=== PATIENT | female | born 1965 | race Caucasian/White ===

== ENCOUNTER 2016-04-25 20:09 | Emergency (ER) | payer MEDICARE, MEDICAID ==
[~2016-04-25] VITALS: Ht 170.2 cm; Wt 86.4 kg
[~2016-04-25 20:09] MED LIST: BUPR-93 PO; DSS100 PO; OXYB5 PO; PARO10TA89 PO; QUET200T PO; SIMV5TAB6 PO
[2016-04-25 20:58] LABS: BASOPHILS # (AUTO) 0.02 K/uL (0.00-0.20); BASOPHILS % (AUTO) 0.3 % (0.0-2.0); EOSINOPHILS # (AUTO) 0.29 K/uL (0.00-0.70); EOSINOPHILS % (AUTO) 4.21 % (1.0-6.0); HEMATOCRIT 41.5 % (36-46); HEMOGLOBIN 14.2 g/dL (12.0-16.0); LYMPHOCYTES % (AUTO) 29.4 % (22.0-44.0); MEAN CORPUSCULAR HGB CONC 34.1 G/dL (31.0-37.0); MEAN CORPUSCULAR VOLUME 94 fL (80-100); MONOCYTES # (AUTO) 0.5 K/uL (0.1-1.0); NEUTROPHILS # (AUTO) 4.1 K/uL (1.8-7.7); NEUTROPHILS % (AUTO) 59.1 % (40.0-70.0); PLATELET COUNT (AUTO) 231 K/uL (150-450); RED BLOOD CELL COUNT(AUTO) 4.44 MIL/uL (4.00-5.20); RED CELL DISTRIBUTION WIDTH 12.5 % (11.5-14.5); WHITE BLOOD COUNT (AUTO) 6.9 K/uL (4.5-11.0)
[2016-04-25 21:04] LABS: ANION GAP 7 mmol/L (8-16); CALCIUM, TOTAL 9.1 mg/dL (8.8-10.5); CARBON DIOXIDE 32 mmol/L (22-29); CHLORIDE 103 mmol/L (98-107); CREATININE 1.09 mg/dL (0.60-1.30); GLOMERULAR FILTR. RATE CALC 53 mL/min (>60); POTASSIUM 3.9 mmol/L (3.5-5.1); SODIUM SERUM 142 mmol/L (136-145); UREA NITROGEN, BLOOD 13 mg/dL (7-18)
[2016-04-25 21:10] LABS: ALANINE AMINOTRANSFERASE 26 U/L (12-78); ALBUMIN 3.7 g/dL (3.4-5.0); ASPARTATE AMINOTRANSFERASE 15 U/L (15-37); BILIRUBIN,TOTAL 0.2 mg/dL (0.1-1.0); TOTAL PROTEIN, SERUM 7.2 g/dL (6.4-8.2)
[2016-04-25 23:19] LABS: APPEARANCE,URINE CLEAR (CLEAR); GLUCOSE, URINE (UA) NEGATIVE (NEGATIVE); KETONES,URINE NEGATIVE (NEGATIVE); LEUKOCYTE ESTERASE ,URINE NEGATIVE (NEGATIVE); OCCULT BLOOD,URINE NEGATIVE (NEGATIVE); PROTEIN,URINE NEGATIVE (NEGATIVE)
[2016-04-25 23:26] LABS: ADD UA MICROSCOPIC NO
[2016-04-25] MEDS ORDERED: SODIUM CHLORIDE 0.9% 1,000 ML IV ONE (23:45)
[2016-04-25] MEDS ORDERED: METOCLOPRAMIDE HCL 5 MG/ML 2 ML VIAL IVP ONE (23:45)
[2016-04-25] MEDS ORDERED: PANTOPRAZOLE SODIUM 40 MG/VIAL IVP ONE (23:45)
[2016-04-25] MEDS ORDERED: MORPHINE SULFATE 10 MG/ML SYRINGE IVP ONE (23:45)
[2016-04-26 01:14] VITALS: BP 133/84
[2016-05-14] MEDS ORDERED: SIMV-260 PO (14:21)
== END 2016-04-26 02:44 | disposition home or self-care (01) ==
LOC: EMS 20:12
DX: K21.9 Gastro-esophageal reflux disease without esophagitis (principal); F17.210 Nicotine dependence, cigarettes, uncomplicated; J44.9 Chronic obstructive pulmonary disease, unspecified; F31.9 Bipolar disorder, unspecified
CPT/HCPCS: 36415; 71010; 80053; 80307; 81003; 83690; 85025; 96361; 96374; 96375; 99285; C9113; G0480; J2270; J2765; J7030

== ENCOUNTER 2016-05-14 14:11 | Emergency (ER) | payer MEDICARE, MEDICAID ==
[~2016-05-14] VITALS: Ht 157.5 cm; Wt 99.0 kg
[2016-05-14] MEDS ORDERED: ASPI-556 PO (14:21)
[2016-05-14] MEDS ORDERED: SIMV20 PO (14:21)
[2016-05-14 14:42] LABS: BASOPHILS % (AUTO) 0.5 % (0.0-2.0); EOSINOPHILS % (AUTO) 3.1 % (1.0-6.0); HEMATOCRIT 40.8 % (36-46); HEMOGLOBIN 13.7 g/dL (12.0-16.0); LYMPHOCYTES # (AUTO) 2.1 K/uL (1.0-4.8); LYMPHOCYTES % (AUTO) 29.5 % (22.0-44.0); MEAN CORPUSCULAR HEMOGLOBIN 31.6 pg (26.0-34.0); MEAN CORPUSCULAR HGB CONC 33.5 G/dL (31.0-37.0); MEAN CORPUSCULAR VOLUME 94 fL (80-100); MONOCYTES # (AUTO) 0.4 K/uL (0.1-1.0); NEUTROPHILS # (AUTO) 4.5 K/uL (1.8-7.7); NEUTROPHILS % (AUTO) 61.9 % (40.0-70.0); PLATELET COUNT (AUTO) 249 K/uL (150-450); RED BLOOD CELL COUNT(AUTO) 4.33 MIL/uL (4.00-5.20); RED CELL DISTRIBUTION WIDTH 12.6 % (11.5-14.5); WHITE BLOOD COUNT (AUTO) 7.2 K/uL (4.5-11.0)
[2016-05-14] MEDS ORDERED: ASPIRIN 81 MG CHEWABLE TABLET PO ONE (14:45)
[2016-05-14 15:00] LABS: CALCIUM, TOTAL 8.6 mg/dL (8.8-10.5); CREATININE 1.03 mg/dL (0.60-1.30); POTASSIUM 4.1 mmol/L (3.5-5.1)
[2016-05-14 15:06] LABS: ALBUMIN 3.7 g/dL (3.4-5.0); BILIRUBIN,TOTAL 0.2 mg/dL (0.1-1.0); TOTAL PROTEIN, SERUM 7.1 g/dL (6.4-8.2)
[2016-05-14] MEDS ORDERED: LORazepam 1 MG TABLET PO ONE (15:15)
[2016-05-14] MEDS ORDERED: KETOROLAC TROMETHAMINE 30 MG/ML VIAL IVP ONE (15:15)
[2016-05-14 17:42] VITALS: BP 107/56
== END 2016-05-14 18:13 | disposition home or self-care (01) ==
LOC: EMS 14:15
DX: F41.9 Anxiety disorder, unspecified (principal); F25.9 Schizoaffective disorder, unspecified; F17.210 Nicotine dependence, cigarettes, uncomplicated; R07.89 Other chest pain; F31.9 Bipolar disorder, unspecified; J44.9 Chronic obstructive pulmonary disease, unspecified; F11.90 Opioid use, unspecified, uncomplicated; Z79.82 Long term (current) use of aspirin
CPT/HCPCS: 36415; 71020; 80053; 80307; 84484; 85025; 93005; 96374; 99285; 99406; J1885

== ENCOUNTER 2016-05-16 21:03 | Inpatient (IN) | payer MEDICARE, MEDICAID ==
[~2016-05-16] VITALS: Ht 157.5 cm; Wt 98.0 kg
[~2016-05-16 21:03] MED LIST changes: +ASPI-556 PO; +SIMV-260 PO
[2016-05-16 21:47] LABS: BASOPHILS # (AUTO) 0.01 K/uL (0.00-0.20); BASOPHILS % (AUTO) 0.2 % (0.0-2.0); EOSINOPHILS # (AUTO) 0.01 K/uL (0.00-0.70); EOSINOPHILS % (AUTO) 0.12 % (1.0-6.0); HEMATOCRIT 37.8 % (36-46); HEMOGLOBIN 12.9 g/dL (12.0-16.0); LYMPHOCYTES # (AUTO) 1.9 K/uL (1.0-4.8); LYMPHOCYTES % (AUTO) 20.6 % (22.0-44.0); MEAN CORPUSCULAR HEMOGLOBIN 32.1 pg (26.0-34.0); MEAN CORPUSCULAR HGB CONC 34.1 G/dL (31.0-37.0); MEAN CORPUSCULAR VOLUME 94 fL (80-100); MONOCYTES # (AUTO) 0.4 K/uL (0.1-1.0); MONOCYTES % (AUTO) 4.2 % (2.0-9.0); NEUTROPHILS # (AUTO) 6.8 K/uL (1.8-7.7); PLATELET COUNT (AUTO) 252 K/uL (150-450); RED BLOOD CELL COUNT(AUTO) 4.01 MIL/uL (4.00-5.20); RED CELL DISTRIBUTION WIDTH 12.8 % (11.5-14.5)
[2016-05-16 21:59] LABS: ANION GAP 11 mmol/L (8-16); CALCIUM, TOTAL 8.3 mg/dL (8.8-10.5); CARBON DIOXIDE 26 mmol/L (22-29); CHLORIDE 104 mmol/L (98-107); CREATININE 1.23 mg/dL (0.60-1.30); GLOMERULAR FILTR. RATE CALC 46 mL/min (>60); POTASSIUM 3.6 mmol/L (3.5-5.1); SODIUM SERUM 141 mmol/L (136-145); UREA NITROGEN, BLOOD 24 mg/dL (7-18)
[2016-05-16 22:04] LABS: ALANINE AMINOTRANSFERASE 28 U/L (12-78); ALBUMIN 3.6 g/dL (3.4-5.0); ASPARTATE AMINOTRANSFERASE 16 U/L (15-37); BILIRUBIN,TOTAL 0.2 mg/dL (0.1-1.0); TOTAL PROTEIN, SERUM 6.8 g/dL (6.4-8.2)
[2016-05-16] MEDS ORDERED: HALOPERIDOL 5 MG TABLET PO ONE (23:30)
[2016-05-16] MEDS ORDERED: LORazepam 2 MG TABLET PO ONE (23:30)
[2016-05-17] MEDS ORDERED: HALOPERIDOL 5 MG TABLET PO PRN (01:00)
[2016-05-17] MEDS ORDERED: LORazepam 2 MG TABLET PO PRN (01:00)
[2016-05-17] MEDS ORDERED: ZOLPIDEM TARTRATE 10 MG TABLET PO PRN (01:00)
[2016-05-17 02:26] VITALS: BP 150/97
[2016-05-17] MEDS ORDERED: -PHARMACY VACCINE NOTE- MISC ONE ×2 (04:00)
[2016-05-17] MEDS ORDERED: INFLUENZA VIRUS VACCINE QVS 2016-17 (3YR+)/PF 60 MCG/0.5 ML SYRINGE IM ONE (04:00)
[2016-05-17 08:00] VITALS: BP 115/71
[2016-05-17] MEDS ORDERED: MAG HYDROX/AL HYDROX/SIMETH ES 30 ML SUSPENSION UDCUP PO PRN (10:00)
[2016-05-17] MEDS ORDERED: LOPERAMIDE HCL 2 MG CAPSULE PO PRN (10:00)
[2016-05-17] MEDS ORDERED: GuaiFENesin/D-METHORPHAN [SUGAR-FREE] 200-20MG/10 ML SYRUP UDCUP PO PRN (10:00)
[2016-05-17] MEDS ORDERED: QUEtiapine FUMARATE 100 MG TABLET PO PRN (10:00)
[2016-05-17] MEDS ORDERED: MAGNESIUM HYDROXIDE SUSPENSION 30 ML UDCUP PO PRN (10:00)
[2016-05-17] MEDS ORDERED: PROMETHAZINE HCL 25 MG TABLET PO PRN (10:00)
[2016-05-17] MEDS ORDERED: HydrOXYzine PAMOATE 50 MG CAPSULE PO PRN (10:00)
[2016-05-17] MEDS ORDERED: ACETAMINOPHEN 325 MG TABLET PO PRN (10:00)
[2016-05-17] MEDS: DOCUSATE SODIUM 100 MG CAPSULE PO SCH (16:20)
[2016-05-17] MEDS: OXYBUTYNIN CHLORIDE 5 MG TABLET PO SCH (16:20)
[2016-05-17] MEDS: THIAMINE HCL 100 MG TABLET PO SCH (16:20)
[2016-05-17 16:29] VITALS: BP 117/71
[2016-05-17] MEDS ORDERED: SIMVASTATIN 5 MG TABLET PO SCH (21:00)
[2016-05-17] MEDS ORDERED: QUEtiapine FUMARATE 200 MG TABLET PO SCH (21:00)
[2016-05-18] MEDS: DOCUSATE SODIUM 100 MG CAPSULE PO SCH (08:30)
[2016-05-18] MEDS: THIAMINE HCL 100 MG TABLET PO SCH (08:31)
[2016-05-18] MEDS: OXYBUTYNIN CHLORIDE 5 MG TABLET PO SCH (08:31)
[2016-05-18] MEDS ORDERED: MULTIVITAMINS WITH MINERALS, THERAPEUTIC TABLET PO SCH (09:00)
[2016-05-18] MEDS ORDERED: PARoxetine HCL 10 MG TABLET PO SCH (09:00)
[2016-05-18] MEDS ORDERED: ASPIRIN 81 MG EC TABLET PO SCH (09:00)
[2016-05-18] MEDS ORDERED: BuPROPion HCL XL 150 MG ER TABLET PO SCH (09:00)
[2016-05-18] MEDS ORDERED: FOLIC ACID 1 MG TABLET PO SCH (09:00)
[2016-05-18 09:22] VITALS: BP 120/74
== END 2016-05-18 10:00 | disposition left against medical advice (07) | DRG 885 ==
LOC: EMS 21:09 → 3EX 05-17 01:27
PROVIDERS: ADMIT Psychiatry & Neurology Psychiatry; ATTEND Psychiatry & Neurology Psychiatry
PROC: 3E0234Z Introduction of Serum, Toxoid and Vaccine into Muscle, Percutaneous Approach (ICD-10-PCS; principal; 2016-05-17)
DX: F25.9 Schizoaffective disorder, unspecified (principal); E78.5 Hyperlipidemia, unspecified; J44.9 Chronic obstructive pulmonary disease, unspecified; R32 Unspecified urinary incontinence; F17.210 Nicotine dependence, cigarettes, uncomplicated; K59.00 Constipation, unspecified; K21.9 Gastro-esophageal reflux disease without esophagitis; B37.9 Candidiasis, unspecified; F12.90 Cannabis use, unspecified, uncomplicated; F15.90 Other stimulant use, unspecified, uncomplicated; Z59.0 Homelessness; Z91.14 Patient's other noncompliance with medication regimen; Z80.3 Family history of malignant neoplasm of breast; Z23 Encounter for immunization; Z79.82 Long term (current) use of aspirin; Z71.6 Tobacco abuse counseling
CPT/HCPCS: 83036; 99285; 99406; G0480

== ENCOUNTER 2016-05-28 12:13 | Emergency (ER) | payer MEDICARE, MEDICAID ==
[~2016-05-28] VITALS: Ht 160 cm; Wt 100.0 kg
[2016-05-28] MEDS ORDERED: MULT1CAP32 PO (12:54)
[2016-05-28] MEDS ORDERED: VITAD1000 PO (12:54)
[2016-05-28] MEDS ORDERED: TRAZ-147 PO (12:54)
[2016-05-28] MEDS ORDERED: FOLI0.4T30 PO (12:54)
[2016-05-28] MEDS ORDERED: PRAZ2 PO (12:54)
[2016-05-28] MEDS ORDERED: BUPR-93 PO (12:54)
[2016-05-28] MEDS ORDERED: FLUT1BLS PO (12:54)
[2016-05-28] MEDS ORDERED: ALBU8HFA4 IH (12:54)
[2016-05-28] MEDS ORDERED: PARO10TA89 PO (12:54)
[2016-05-28] MEDS ORDERED: OXYB5 PO (12:54)
[2016-05-28] MEDS ORDERED: QUET200T PO (12:54)
[2016-05-28 14:00] LABS: BASOPHILS # (AUTO) 0.02 K/uL (0.00-0.20); BASOPHILS % (AUTO) 0.3 % (0.0-2.0); EOSINOPHILS # (AUTO) 0.12 K/uL (0.00-0.70); EOSINOPHILS % (AUTO) 1.46 % (1.0-6.0); HEMATOCRIT 41.6 % (36-46); HEMOGLOBIN 13.9 g/dL (12.0-16.0); LYMPHOCYTES # (AUTO) 2.4 K/uL (1.0-4.8); LYMPHOCYTES % (AUTO) 29.3 % (22.0-44.0); MEAN CORPUSCULAR HEMOGLOBIN 31.7 pg (26.0-34.0); MEAN CORPUSCULAR HGB CONC 33.4 G/dL (31.0-37.0); MEAN CORPUSCULAR VOLUME 95 fL (80-100); MONOCYTES # (AUTO) 0.4 K/uL (0.1-1.0); MONOCYTES % (AUTO) 5.2 % (2.0-9.0); NEUTROPHILS # (AUTO) 5.2 K/uL (1.8-7.7); NEUTROPHILS % (AUTO) 63.8 % (40.0-70.0); PLATELET COUNT (AUTO) 250 K/uL (150-450); RED BLOOD CELL COUNT(AUTO) 4.39 MIL/uL (4.00-5.20); RED CELL DISTRIBUTION WIDTH 12.8 % (11.5-14.5); WHITE BLOOD COUNT (AUTO) 8.1 K/uL (4.5-11.0)
[2016-05-28 14:14] LABS: ANION GAP 8 mmol/L (8-16); CALCIUM, TOTAL 9.3 mg/dL (8.8-10.5); CARBON DIOXIDE 29 mmol/L (22-29); CHLORIDE 102 mmol/L (98-107); CREATININE 0.86 mg/dL (0.60-1.30); GLOMERULAR FILTR. RATE CALC > 60 mL/min (>60); POTASSIUM 4.2 mmol/L (3.5-5.1); SODIUM SERUM 139 mmol/L (136-145); UREA NITROGEN, BLOOD 15 mg/dL (7-18)
[2016-05-28 14:15] LABS: PROTHROMBIN TIME 10.6 SEC (9.4-11.6)
[2016-05-28 14:20] LABS: ALANINE AMINOTRANSFERASE 27 U/L (12-78); ALBUMIN 3.5 g/dL (3.4-5.0); ASPARTATE AMINOTRANSFERASE 17 U/L (15-37); BILIRUBIN,TOTAL 0.4 mg/dL (0.1-1.0); TOTAL PROTEIN, SERUM 7.1 g/dL (6.4-8.2)
[2016-05-28 14:26] LABS: B-TYPE NATRIURETIC PEPTIDE 6 pg/mL (0-100)
[2016-05-28] MEDS ORDERED: DIAZEPAM 5 MG/ML 2 ML SYRINGE IVP ONE (14:30)
[2016-05-28 15:36] LABS: APPEARANCE,URINE CLEAR (CLEAR); GLUCOSE, URINE (UA) NEGATIVE (NEGATIVE); KETONES,URINE NEGATIVE (NEGATIVE); LEUKOCYTE ESTERASE ,URINE NEGATIVE (NEGATIVE); OCCULT BLOOD,URINE NEGATIVE (NEGATIVE); PROTEIN,URINE NEGATIVE (NEGATIVE)
[2016-05-28 15:38] LABS: ADD UA MICROSCOPIC NO
[2016-05-28] MEDS ORDERED: ACETAMINOPHEN 500 MG TABLET PO ONE (16:00)
[2016-05-28 18:18] VITALS: BP 119/59
== END 2016-05-28 18:22 | disposition home or self-care (01) ==
LOC: EMS 12:18
DX: R07.2 Precordial pain (principal); F20.9 Schizophrenia, unspecified; F31.9 Bipolar disorder, unspecified; F41.9 Anxiety disorder, unspecified; J44.9 Chronic obstructive pulmonary disease, unspecified; F17.210 Nicotine dependence, cigarettes, uncomplicated; I20.9 Angina pectoris, unspecified
CPT/HCPCS: 36415; 71010; 80053; 80307; 81003; 83880; 84484; 85025; 85610; 93005; 96374; 99285; J1885

== ENCOUNTER 2016-07-08 06:41 | Day surgery (SDC) | payer MEDICARE, MEDICAID ==
[~2016-07-08] VITALS: Ht 157.5 cm; Wt 98.2 kg
[~2016-07-08 06:41] MED LIST changes: +ALBU8HFA4 IH; -ASPI-556 PO; -DSS100 PO; +FLUT1BLS PO; +FOLI0.4T30 PO; +MULT1CAP32 PO; +PRAZ2 PO; -SIMV-260 PO; -SIMV5TAB6 PO; +TRAZ-147 PO; +VITAD1000 PO
[2016-07-08] MEDS ORDERED: SODIUM CHLORIDE 0.9% 1,000 ML IV ONE ×2 (06:58→07:30)
[2016-07-08 07:31] LABS: CALCIUM, TOTAL 9.2 mg/dL (8.8-10.5); CREATININE 1.02 mg/dL (0.60-1.30); POTASSIUM 4.2 mmol/L (3.5-5.1)
[2016-07-08 07:34] LABS: PROTHROMBIN TIME 10.6 SEC (9.4-11.6)
[2016-07-08 07:36] LABS: BASOPHILS % (AUTO) 0.3 % (0.0-2.0); EOSINOPHILS % (AUTO) 3.2 % (1.0-6.0); HEMATOCRIT 39.2 % (36-46); LYMPHOCYTES # (AUTO) 2.1 K/uL (1.0-4.8); LYMPHOCYTES % (AUTO) 36.2 % (22.0-44.0); MEAN CORPUSCULAR HEMOGLOBIN 31.2 pg (26.0-34.0); MEAN CORPUSCULAR HGB CONC 33.2 G/dL (31.0-37.0); MEAN CORPUSCULAR VOLUME 94 fL (80-100); MONOCYTES # (AUTO) 0.4 K/uL (0.1-1.0); MONOCYTES % (AUTO) 7.5 % (2.0-9.0); NEUTROPHILS % (AUTO) 52.8 % (40.0-70.0); PLATELET COUNT (AUTO) 231 K/uL (150-450); RED BLOOD CELL COUNT(AUTO) 4.17 MIL/uL (4.00-5.20); RED CELL DISTRIBUTION WIDTH 13.1 % (11.5-14.5); WHITE BLOOD COUNT (AUTO) 5.7 K/uL (4.5-11.0)
[2016-07-08] MEDS ORDERED: FLUT1BLS PO (07:36)
[2016-07-08] MEDS ORDERED: HYDR-305 PO (07:36)
[2016-07-08] MEDS ORDERED: NICO21T TD (07:36)
[2016-07-08] MEDS ORDERED: CHOL200016 PO (07:42)
[2016-07-08] MEDS ORDERED: IBUP-2070 PO (07:42)
[2016-07-08] MEDS ORDERED: SIMV-260 PO (07:42)
[2016-07-08] MEDS ORDERED: ASPI-1093 PO (07:42)
[2016-07-08] MEDS ORDERED: DSS100 PO (07:42)
[2016-07-08] MEDS ORDERED: PERM120L5 TP (07:46)
[2016-07-08] MEDS ORDERED: BLAC540C4 PO (07:46)
[2016-07-08] MEDS ORDERED: SODIUM BICARBONATE 50 MEQ/50 ML VIAL ONE (08:52)
[2016-07-08] MEDS ORDERED: LIDOCAINE HCL/PF 1% 30 ML VIAL ONE (08:52)
[2016-07-08] MEDS ORDERED: IOHEXOL 300 MG/ML 150 ML VIAL ONE (08:52)
[2016-07-08] MEDS ORDERED: HEPARIN SODIUM 1000 UNITS/NS 500 ML ONE ×2 (08:52)
[2016-07-08 09:00] VITALS: BP 131/80
[2016-07-08] MEDS ORDERED: MIDAZOLAM HCL 2 MG/2 ML VIAL ONE (09:17)
[2016-07-08] MEDS ORDERED: FentaNYL CITRATE-PF 100 MCG/2 ML VIAL ONE (09:17)
[2016-07-08] MEDS ORDERED: HEPARIN SODIUM 2,000 UNITS in HEPARIN SODIUM 1000 UNITS/NS 1,000 ML IARTER ONE (09:28)
[2016-07-08] MEDS ORDERED: IOHEXOL 300 MG/ML 150 ML VIAL IARTER ONE (09:30)
[2016-07-08] MEDS ORDERED: MIDAZOLAM HCL 2 MG/2 ML VIAL IVP ONE (09:30)
[2016-07-08] MEDS ORDERED: LIDOCAINE 1% 30 ML/SOD BICARB 8.4% 4 ML SQ ONE (09:30)
[2016-07-08] MEDS ORDERED: FentaNYL CITRATE-PF 100 MCG/2 ML VIAL IVP ONE (09:30)
[2016-07-08 09:35] VITALS: BP 125/80
== END 2016-07-08 14:00 | disposition home or self-care (01) ==
LOC: CATHLAB 06:41
PROVIDERS: ATTEND Internal Medicine Cardiovascular Disease
DX: R94.39 Abnormal result of other cardiovascular function study (principal); J44.9 Chronic obstructive pulmonary disease, unspecified; F17.210 Nicotine dependence, cigarettes, uncomplicated; Z79.82 Long term (current) use of aspirin; Z98.51 Tubal ligation status
CPT/HCPCS: 36415; 80048; 85025; 85610; 85730; 93005; 93458; 99152; 99153; C1760; C1892; J1644; J2250; J3010; J3490 ×2; J7030; Q9967

== ENCOUNTER 2017-03-02 19:08 | Inpatient (IN) | payer MEDICARE, MEDICAID ==
[~2017-03-02] VITALS: Ht 157.5 cm; Wt 97.0 kg
[~2017-03-02 19:08] MED LIST changes: -ALBU8HFA4 IH; +ASPI-1182 PO; +BUPR-47 PO; -BUPR-93 PO; +FLUT1BLS IH; -FLUT1BLS PO; -FOLI0.4T30 PO; -MULT1CAP32 PO; +NALT50TA6 PO; +PARO-37 PO; -PARO10TA89 PO; +PRAZ1 PO; -PRAZ2 PO; -QUET200T PO; +QUET200T29 PO; +ROSU10 PO
[2017-03-02 19:59] LABS: BASOPHILS # (AUTO) 0.02 K/uL (0.00-0.20); BASOPHILS % (AUTO) 0.4 % (0.0-2.0); EOSINOPHILS # (AUTO) 0.19 K/uL (0.00-0.70); HEMOGLOBIN 13.3 g/dL (12.0-16.0); LYMPHOCYTES # (AUTO) 2.3 K/uL (1.0-4.8); MEAN CORPUSCULAR HGB CONC 34.1 G/dL (31.0-37.0); MEAN CORPUSCULAR VOLUME 97 fL (80-100); MONOCYTES # (AUTO) 0.4 K/uL (0.1-1.0); MONOCYTES % (AUTO) 5.7 % (2.0-9.0); NEUTROPHILS # (AUTO) 3.5 K/uL (1.8-7.7); NEUTROPHILS % (AUTO) 54.9 % (40.0-70.0); PLATELET COUNT (AUTO) 187 K/uL (150-450); RED BLOOD CELL COUNT(AUTO) 4.02 MIL/uL (4.00-5.20); RED CELL DISTRIBUTION WIDTH 12.9 % (11.5-14.5)
[2017-03-02 20:29] LABS: ANION GAP 7 mmol/L (8-16); CALCIUM, TOTAL 8.8 mg/dL (8.8-10.5); CARBON DIOXIDE 28 mmol/L (22-29); CHLORIDE 104 mmol/L (98-107); CREATININE 1.16 mg/dL (0.60-1.30); GLOMERULAR FILTR. RATE CALC 49 mL/min (>60); GLUCOSE,RANDOM 94 mg/dL (70-110); POTASSIUM 3.8 mmol/L (3.5-5.1); SODIUM SERUM 139 mmol/L (136-145); UREA NITROGEN, BLOOD 18 mg/dL (7-18)
[2017-03-02 20:35] LABS: ALANINE AMINOTRANSFERASE 26 U/L (12-78); ALBUMIN 3.5 g/dL (3.4-5.0); ALKALINE PHOSPHATASE 75 U/L (46-116); ASPARTATE AMINOTRANSFERASE 18 U/L (15-37); BILIRUBIN,TOTAL 0.1 mg/dL (0.1-1.0); TOTAL PROTEIN, SERUM 6.7 g/dL (6.4-8.2)
[2017-03-02 20:47] LABS: AMPHET/METH SCREEN,URINE NEGATIVE (NEGATIVE); BARBITURATE SCREEN, URINE NEGATIVE (NEGATIVE); BENZODIAZEPINES SCREEN,URINE NEGATIVE (NEGATIVE); CANNABINOID SCREEN,URINE NEGATIVE (NEGATIVE); COCAINE SCREEN,URINE NEGATIVE (NEGATIVE); METHADONE SCREEN, URINE NEGATIVE (NEGATIVE); OPIATE SCREEN,URINE POSITIVE (NEGATIVE)
[2017-03-02 20:48] LABS: PHENCYCLIDINE SCREEN,URINE NEGATIVE (NEGATIVE)
[2017-03-02] MEDS ORDERED: ZOLPIDEM TARTRATE 10 MG TABLET PO PRN (23:15)
[2017-03-02] MEDS ORDERED: HALOPERIDOL 5 MG TABLET PO PRN (23:15)
[2017-03-02] MEDS ORDERED: LORazepam 2 MG/ML VIAL IM ONE (23:30)
[2017-03-02] MEDS ORDERED: DiphenhydrAMINE HCL 50 MG/ML VIAL IM ONE (23:30)
[2017-03-02] MEDS ORDERED: HALOPERIDOL LACTATE 5 MG/ML VIAL IM ONE (23:30)
[2017-03-03 03:08] LABS: CHOL/HDL RATIO 5.1 (3.9-5.7); CHOLESTEROL 178 mg/dL (131-200); HDL CHOLESTEROL 35 mg/dL (40-60); LDL CHOL (CALC.) 84 mg/dL (0-130); TRIGLYCERIDES 296 mg/dL (15-150)
[2017-03-03] MEDS ORDERED: IBUPROFEN 600 MG TABLET PO PRN (10:00)
[2017-03-03] MEDS ORDERED: ACETAMINOPHEN 325 MG TABLET PO PRN (10:00)
[2017-03-03 11:19] VITALS: BP 103/65
[2017-03-03] MEDS: OXYBUTYNIN CHLORIDE 5 MG TABLET PO SCH ×2 (12:19→16:38)
[2017-03-03 16:22] VITALS: BP 110/69
[2017-03-03] MEDS: TraZODone HCL 100 MG TABLET PO SCH (20:29)
[2017-03-03] MEDS: ROSUVASTATIN CALCIUM 10 MG TABLET PO SCH (20:30)
[2017-03-03] MEDS: QUEtiapine FUMARATE 200 MG TABLET PO SCH (20:30)
[2017-03-04 06:57] VITALS: BP 110/72
[2017-03-04] MEDS: PARoxetine HCL 20 MG TABLET PO SCH (08:29)
[2017-03-04] MEDS: QUEtiapine FUMARATE 100 MG TABLET PO SCH (08:29)
[2017-03-04] MEDS: BuPROPion HCL XL 150 MG ER TABLET PO SCH (08:29)
[2017-03-04] MEDS: OXYBUTYNIN CHLORIDE 5 MG TABLET PO SCH ×3 (08:29→16:34)
[2017-03-04] MEDS: ASPIRIN 81 MG EC TABLET PO SCH (08:29)
[2017-03-04] MEDS: CHOLECALCIFEROL (VIT D3) 1,000 UNITS TABLET PO SCH (08:30)
[2017-03-04] MEDS: FLUTICASONE/VILANTEROL 200-25 MCG/INH INHALER [14] IH SCH (08:35)
[2017-03-04 08:46] VITALS: BP 104/66
[2017-03-04 13:30] VITALS: BP 114/70
[2017-03-04] MEDS: LORazepam 2 MG TABLET PO PRN (13:31)
[2017-03-04] MEDS: NICOTINE 14 MG/24 HOUR PATCH TD SCH (14:16)
[2017-03-04 16:06] VITALS: BP 109/70
[2017-03-04] MEDS: TraZODone HCL 100 MG TABLET PO SCH (20:37)
[2017-03-04] MEDS: QUEtiapine FUMARATE 200 MG TABLET PO SCH (20:37)
[2017-03-04] MEDS: ROSUVASTATIN CALCIUM 10 MG TABLET PO SCH (20:37)
[2017-03-05 06:48] VITALS: BP 105/65
[2017-03-05 08:22] VITALS: BP 107/60
[2017-03-05] MEDS: PARoxetine HCL 20 MG TABLET PO SCH (08:22)
[2017-03-05] MEDS: QUEtiapine FUMARATE 100 MG TABLET PO SCH (08:22)
[2017-03-05] MEDS: BuPROPion HCL XL 150 MG ER TABLET PO SCH (08:23)
[2017-03-05] MEDS: CHOLECALCIFEROL (VIT D3) 1,000 UNITS TABLET PO SCH (08:23)
[2017-03-05] MEDS: OXYBUTYNIN CHLORIDE 5 MG TABLET PO SCH ×3 (08:23→16:07)
[2017-03-05] MEDS: NICOTINE 14 MG/24 HOUR PATCH TD SCH (08:23)
[2017-03-05] MEDS: ASPIRIN 81 MG EC TABLET PO SCH (08:23)
[2017-03-05] MEDS: FLUTICASONE/VILANTEROL 200-25 MCG/INH INHALER [14] IH SCH (08:27)
[2017-03-05] MEDS: LORazepam 2 MG TABLET PO PRN ×2 (09:34→16:07)
[2017-03-05 16:00] VITALS: BP 109/75
[2017-03-05 17:27] VITALS: BP 110/80
[2017-03-05] MEDS: QUEtiapine FUMARATE 200 MG TABLET PO SCH (20:03)
[2017-03-05] MEDS: TraZODone HCL 100 MG TABLET PO SCH (20:03)
[2017-03-05] MEDS: ROSUVASTATIN CALCIUM 10 MG TABLET PO SCH (20:03)
[2017-03-06 01:50] VITALS: BP 111/61
[2017-03-06] MEDS ORDERED: ASPI-1182 PO (03:39)
[2017-03-06] MEDS ORDERED: OXYB5 PO (03:40)
[2017-03-06] MEDS ORDERED: ROSU10 PO (03:40)
[2017-03-06] MEDS ORDERED: VITAD1000 PO (03:40)
[2017-03-06] MEDS ORDERED: FLUT1BLS IH (03:41)
[2017-03-06] MEDS ORDERED: TRAZ-147 PO (03:42)
[2017-03-06] MEDS ORDERED: QUET200T PO (03:42)
[2017-03-06] MEDS ORDERED: QUET100T PO (03:43)
[2017-03-06] MEDS ORDERED: PARO20TA24 PO (03:43)
[2017-03-06] MEDS ORDERED: BUPR100 PO (03:44)
[2017-03-06] MEDS: NICOTINE 14 MG/24 HOUR PATCH TD SCH (08:04)
[2017-03-06] MEDS: FLUTICASONE/VILANTEROL 200-25 MCG/INH INHALER [14] IH SCH (08:04)
[2017-03-06] MEDS: PARoxetine HCL 20 MG TABLET PO SCH (08:04)
[2017-03-06] MEDS: QUEtiapine FUMARATE 100 MG TABLET PO SCH (08:04)
[2017-03-06] MEDS: CHOLECALCIFEROL (VIT D3) 1,000 UNITS TABLET PO SCH (08:04)
[2017-03-06] MEDS: BuPROPion HCL XL 150 MG ER TABLET PO SCH (08:04)
[2017-03-06] MEDS: OXYBUTYNIN CHLORIDE 5 MG TABLET PO SCH (08:04)
[2017-03-06] MEDS: ASPIRIN 81 MG EC TABLET PO SCH (08:04)
[2017-03-06 08:38] VITALS: BP 113/74
== END 2017-03-06 10:02 | disposition home or self-care (01) | DRG 885 ==
LOC: EMS 19:11 → B2X 03-03 07:10
PROVIDERS: ADMIT Psychiatry & Neurology Psychiatry; ATTEND Psychiatry & Neurology Psychiatry
DX: F20.0 Paranoid schizophrenia (principal); E55.9 Vitamin D deficiency, unspecified; E78.5 Hyperlipidemia, unspecified; F17.210 Nicotine dependence, cigarettes, uncomplicated; G89.4 Chronic pain syndrome; J44.9 Chronic obstructive pulmonary disease, unspecified; F15.90 Other stimulant use, unspecified, uncomplicated; R32 Unspecified urinary incontinence; Z80.3 Family history of malignant neoplasm of breast
CPT/HCPCS: 96372; 99285; G0480; J1200; J1630; J2060

== ENCOUNTER 2017-05-09 16:10 | Emergency (ER) | payer MEDICARE, MEDICAID ==
[~2017-05-09] VITALS: Ht 157.5 cm; Wt 97.7 kg
[~2017-05-09 16:10] MED LIST changes: -BUPR-47 PO; +BUPR100 PO; -NALT50TA6 PO; -PARO-37 PO; +PARO20TA24 PO; -PRAZ1 PO; +QUET100T PO; +QUET200T PO; -QUET200T29 PO
[2017-05-09] MEDS ORDERED: BUPR-93 PO (16:21)
[2017-05-09] MEDS ORDERED: NAPROXEN 250 MG TABLET PO ONE (18:00)
[2017-05-09 18:45] VITALS: BP 120/65
== END 2017-05-09 19:00 | disposition home or self-care (01) ==
LOC: EMS 18:18
DX: M25.572 Pain in left ankle and joints of left foot (principal); I20.9 Angina pectoris, unspecified; M19.90 Unspecified osteoarthritis, unspecified site; J44.9 Chronic obstructive pulmonary disease, unspecified; F17.210 Nicotine dependence, cigarettes, uncomplicated; Z79.82 Long term (current) use of aspirin
CPT/HCPCS: 99284; 99406

== ENCOUNTER 2017-05-24 23:26 | Emergency (ER) | payer MEDICARE, MEDICAID ==
[~2017-05-24] VITALS: Ht 157.5 cm; Wt 96.4 kg
[~2017-05-24 23:26] MED LIST changes: +BUPR-47 PO; +BUPR-93 PO; -BUPR100 PO; -FLUT1BLS IH; +NALT50TA PO; +PARO-37 PO; +PRAZ1 PO; +PRAZ1CAP2 PO; +QUET200T29 PO; -VITAD1000 PO
[2017-05-25 03:30] LABS: BASOPHILS % (AUTO) 0.4 % (0.0-2.0); EOSINOPHILS % (AUTO) 2.8 % (1.0-6.0); HEMATOCRIT 39.8 % (36-46); HEMOGLOBIN 13.7 g/dL (12.0-16.0); LYMPHOCYTES # (AUTO) 2.9 K/uL (1.0-4.8); LYMPHOCYTES % (AUTO) 39.9 % (22.0-44.0); MEAN CORPUSCULAR HEMOGLOBIN 32.7 pg (26.0-34.0); MEAN CORPUSCULAR HGB CONC 34.5 G/dL (31.0-37.0); MEAN CORPUSCULAR VOLUME 95 fL (80-100); MONOCYTES # (AUTO) 0.5 K/uL (0.1-1.0); MONOCYTES % (AUTO) 7.1 % (2.0-9.0); NEUTROPHILS # (AUTO) 3.6 K/uL (1.8-7.7); NEUTROPHILS % (AUTO) 49.8 % (40.0-70.0); PLATELET COUNT (AUTO) 225 K/uL (150-450); RED BLOOD CELL COUNT(AUTO) 4.19 MIL/uL (4.00-5.20); RED CELL DISTRIBUTION WIDTH 12.4 % (11.5-14.5)
[2017-05-25 03:38] LABS: ANION GAP 6 mmol/L (8-16); CALCIUM, TOTAL 8.6 mg/dL (8.8-10.5); CARBON DIOXIDE 30 mmol/L (22-29); CHLORIDE 106 mmol/L (98-107); CREATININE 0.91 mg/dL (0.60-1.30); GLOMERULAR FILTR. RATE CALC > 60 mL/min (>60); GLUCOSE,RANDOM 87 mg/dL (70-110); POTASSIUM 3.5 mmol/L (3.5-5.1); SODIUM SERUM 142 mmol/L (136-145); UREA NITROGEN, BLOOD 19 mg/dL (7-18)
[2017-05-25] MEDS ORDERED: SODIUM CHLORIDE 0.9% 1,000 ML IV ONE (04:15)
[2017-05-25] MEDS: SODIUM CHLORIDE 0.9% 1,000 ML IV ONE ×3 (04:55→06:07)
[2017-05-25] MEDS ORDERED: KETOROLAC TROMETHAMINE 60 MG/2 ML VIAL IM ONE (06:45)
[2017-05-25 06:55] VITALS: BP 109/67
== END 2017-05-25 07:10 | disposition home or self-care (01) ==
LOC: EMS 23:27
DX: I95.1 Orthostatic hypotension (principal); R44.0 Auditory hallucinations; R10.9 Unspecified abdominal pain; T44.6X5A Adverse effect of alpha-adrenoreceptor antagonists, initial encounter; J44.9 Chronic obstructive pulmonary disease, unspecified; I20.9 Angina pectoris, unspecified; F31.9 Bipolar disorder, unspecified; F20.9 Schizophrenia, unspecified; F17.210 Nicotine dependence, cigarettes, uncomplicated; Y92.89 Other specified places as the place of occurrence of the external cause; Z79.82 Long term (current) use of aspirin
CPT/HCPCS: 36415; 80048; 85025; 96360; 96361; 96372; 99284; J1885; J7030

== ENCOUNTER 2017-06-04 18:44 | Inpatient (IN) | payer MEDICARE, MEDICAID ==
[~2017-06-04] VITALS: Ht 157.5 cm; Wt 95.8 kg
[~2017-06-04 18:44] MED LIST changes: -BUPR-47 PO; -NALT50TA PO; -PARO-37 PO; -PRAZ1 PO; -PRAZ1CAP2 PO; -QUET200T29 PO
[2017-06-04 19:59] LABS: BASOPHILS % (AUTO) 0.3 % (0.0-2.0); EOSINOPHILS % (AUTO) 2.7 % (1.0-6.0); HEMOGLOBIN 14.5 g/dL (12.0-16.0); LYMPHOCYTES # (AUTO) 2.2 K/uL (1.0-4.8); MEAN CORPUSCULAR HEMOGLOBIN 32.6 pg (26.0-34.0); MEAN CORPUSCULAR HGB CONC 35.3 G/dL (31.0-37.0); MEAN CORPUSCULAR VOLUME 92 fL (80-100); MONOCYTES # (AUTO) 0.5 K/uL (0.1-1.0); NEUTROPHILS # (AUTO) 3.9 K/uL (1.8-7.7); PLATELET COUNT (AUTO) 252 K/uL (150-450); RED BLOOD CELL COUNT(AUTO) 4.44 MIL/uL (4.00-5.20); RED CELL DISTRIBUTION WIDTH 12.5 % (11.5-14.5)
[2017-06-04 20:05] LABS: ANION GAP 9 mmol/L (8-16); CARBON DIOXIDE 28 mmol/L (22-29); CHLORIDE 104 mmol/L (98-107); CREATININE 0.94 mg/dL (0.60-1.30); GLOMERULAR FILTR. RATE CALC > 60 mL/min (>60); GLUCOSE,RANDOM 109 mg/dL (70-110); POTASSIUM 3.8 mmol/L (3.5-5.1); SODIUM SERUM 141 mmol/L (136-145); UREA NITROGEN, BLOOD 18 mg/dL (7-18)
[2017-06-04 20:12] LABS: ALANINE AMINOTRANSFERASE 36 U/L (12-78); ALBUMIN 3.8 g/dL (3.4-5.0); ALKALINE PHOSPHATASE 82 U/L (46-116); ASPARTATE AMINOTRANSFERASE 21 U/L (15-37); BILIRUBIN,TOTAL 0.3 mg/dL (0.1-1.0); TOTAL PROTEIN, SERUM 7.3 g/dL (6.4-8.2)
[2017-06-04] MEDS ORDERED: HALOPERIDOL 5 MG TABLET PO ONE (20:15)
[2017-06-04] MEDS ORDERED: ZOLPIDEM TARTRATE 10 MG TABLET PO PRN (20:15)
[2017-06-04] MEDS ORDERED: DiphenhydrAMINE HCL 25 MG CAPSULE PO ONE (20:15)
[2017-06-04] MEDS ORDERED: LORazepam 2 MG TABLET PO ONE (20:15)
[2017-06-05 01:16] VITALS: BP 115/69
[2017-06-05] MEDS ORDERED: INFLUENZA VIRUS VACCINE QVS 2017-18 (3YR+)/PF 60 MCG/0.5 ML SYRINGE IM ONE (05:15)
[2017-06-05 08:26] VITALS: BP 108/73
[2017-06-05] MEDS: NICOTINE 7 MG/24 HOUR PATCH TD SCH (09:56)
[2017-06-05 16:13] VITALS: BP 110/78
[2017-06-05] MEDS: LORazepam 2 MG TABLET PO PRN (17:58)
[2017-06-05] MEDS: QUEtiapine FUMARATE 200 MG TABLET PO SCH (20:12)
[2017-06-05] MEDS: TraZODone HCL 100 MG TABLET PO SCH (20:12)
[2017-06-06] VITALS: BP 130/69
[2017-06-06 08:45] VITALS: BP 128/60
[2017-06-06] MEDS: PARoxetine HCL 20 MG TABLET PO SCH (10:16)
[2017-06-06] MEDS: BuPROPion HCL XL 150 MG ER TABLET PO SCH (10:16)
[2017-06-06] MEDS: QUEtiapine FUMARATE 100 MG TABLET PO SCH (10:16)
[2017-06-06] MEDS: NICOTINE 7 MG/24 HOUR PATCH TD SCH (10:17)
[2017-06-06 16:28] VITALS: BP 117/68
[2017-06-06] MEDS: IBUPROFEN 600 MG TABLET PO PRN (16:40)
[2017-06-06] MEDS: LORazepam 2 MG TABLET PO PRN (16:41)
[2017-06-06] MEDS: TraZODone HCL 100 MG TABLET PO SCH (21:15)
[2017-06-06] MEDS: QUEtiapine FUMARATE 200 MG TABLET PO SCH (21:15)
[2017-06-07 08:43] VITALS: BP 102/70
[2017-06-07] MEDS: QUEtiapine FUMARATE 100 MG TABLET PO SCH (08:47)
[2017-06-07] MEDS: BuPROPion HCL XL 150 MG ER TABLET PO SCH (08:47)
[2017-06-07] MEDS: PARoxetine HCL 20 MG TABLET PO SCH (08:47)
[2017-06-07] MEDS: NICOTINE 7 MG/24 HOUR PATCH TD SCH (08:48)
[2017-06-07 09:55] VITALS: BP 106/72
[2017-06-07] MEDS: IBUPROFEN 600 MG TABLET PO PRN ×2 (09:55→16:05)
[2017-06-07] MEDS: HALOPERIDOL 5 MG TABLET PO PRN (12:20)
[2017-06-07] MEDS: LORazepam 2 MG TABLET PO PRN (15:43)
[2017-06-07 16:05] VITALS: BP 114/75
[2017-06-07] MEDS: QUEtiapine FUMARATE 200 MG TABLET PO SCH (20:30)
[2017-06-07] MEDS: TraZODone HCL 100 MG TABLET PO SCH (20:30)
[2017-06-08 01:17] VITALS: BP 102/71
[2017-06-08 08:00] VITALS: BP 114/68
[2017-06-08] MEDS: PARoxetine HCL 20 MG TABLET PO SCH (08:32)
[2017-06-08] MEDS: QUEtiapine FUMARATE 100 MG TABLET PO SCH (08:32)
[2017-06-08] MEDS: BuPROPion HCL XL 150 MG ER TABLET PO SCH (08:32)
[2017-06-08] MEDS: NICOTINE 7 MG/24 HOUR PATCH TD SCH (08:33)
[2017-06-08] MEDS: LORazepam 2 MG TABLET PO PRN ×2 (08:34→16:20)
[2017-06-08] MEDS: IBUPROFEN 600 MG TABLET PO PRN (08:35)
[2017-06-08] MEDS ORDERED: ESTRADIOL 1 MG TABLET PO SCH (09:00)
[2017-06-08] MEDS ORDERED: MedroxyPROGESTERone ACET 5 MG TABLET PO SCH (09:00)
[2017-06-08] MEDS ORDERED: ASPIRIN 81 MG EC TABLET PO SCH (11:00)
[2017-06-08] MEDS ORDERED: ALBUTEROL SULFATE HFA 90 MCG/PUFF 8 GM INHALER IH PRN (11:00)
[2017-06-08] MEDS: OXYBUTYNIN CHLORIDE 5 MG TABLET PO SCH ×2 (12:17→16:20)
[2017-06-08] MEDS: HALOPERIDOL 5 MG TABLET PO PRN (16:20)
[2017-06-08] MEDS ORDERED: FAMO20 PO (16:26)
[2017-06-08] MEDS ORDERED: PROV5 PO (16:26)
[2017-06-08] MEDS ORDERED: DSS100 PO (16:26)
[2017-06-08] MEDS ORDERED: FLUT1BLS IH (16:27)
[2017-06-08] MEDS ORDERED: ROSUVASTATIN CALCIUM 10 MG TABLET PO SCH (21:00)
[2017-06-09] MEDS ORDERED: FLUTICASONE/VILANTEROL 200-25 MCG/INH INHALER [14] IH SCH (09:00)
[2017-06-09] MEDS ORDERED: DOCUSATE SODIUM 100 MG CAPSULE PO SCH (09:00)
[2017-06-09] MEDS ORDERED: FAMOTIDINE 20 MG TABLET PO SCH (09:00)
== END 2017-06-08 17:25 | disposition home or self-care (01) | DRG 885 ==
LOC: EEVIPCON 18:46 → EMS 18:46 → B2X 21:00
PROVIDERS: ATTEND Internal Medicine Geriatric Medicine
DX: F25.1 Schizoaffective disorder, depressive type (principal); F11.20 Opioid dependence, uncomplicated; E78.5 Hyperlipidemia, unspecified; F41.9 Anxiety disorder, unspecified; G47.00 Insomnia, unspecified; G89.29 Other chronic pain; K21.9 Gastro-esophageal reflux disease without esophagitis; I10 Essential (primary) hypertension; J44.9 Chronic obstructive pulmonary disease, unspecified; F17.210 Nicotine dependence, cigarettes, uncomplicated; M19.90 Unspecified osteoarthritis, unspecified site; R32 Unspecified urinary incontinence; Z79.899 Other long term (current) drug therapy; Z28.21 Immunization not carried out because of patient refusal
CPT/HCPCS: 87081; G0480

== ENCOUNTER 2017-06-10 08:39 | Inpatient (IN) | payer MEDICARE, MEDICAID ==
[~2017-06-10] VITALS: Ht 165.1 cm; Wt 94.8 kg
[~2017-06-10 08:39] MED LIST changes: +DSS100 PO; +FAMO20 PO; +FLUT1BLS IH; +PROV5 PO
[2017-06-10] MEDS ORDERED: HYDR-309 PO (09:14)
[2017-06-10] MEDS ORDERED: PROV5 PO (09:14)
[2017-06-10] MEDS ORDERED: ESTR-95 PO (09:14)
[2017-06-10 10:09] LABS: BASOPHILS % (AUTO) 0.3 % (0.0-2.0); HEMATOCRIT 39.7 % (36-46); LYMPHOCYTES % (AUTO) 31.3 % (22.0-44.0); MEAN CORPUSCULAR HEMOGLOBIN 32.8 pg (26.0-34.0); MEAN CORPUSCULAR HGB CONC 35.4 G/dL (31.0-37.0); MEAN CORPUSCULAR VOLUME 93 fL (80-100); MONOCYTES # (AUTO) 0.4 K/uL (0.1-1.0); MONOCYTES % (AUTO) 6.3 % (2.0-9.0); NEUTROPHILS # (AUTO) 3.7 K/uL (1.8-7.7); NEUTROPHILS % (AUTO) 59.1 % (40.0-70.0); PLATELET COUNT (AUTO) 264 K/uL (150-450); RED BLOOD CELL COUNT(AUTO) 4.28 MIL/uL (4.00-5.20); RED CELL DISTRIBUTION WIDTH 12.4 % (11.5-14.5)
[2017-06-10 10:15] LABS: AMPHET/METH SCREEN,URINE NEGATIVE (NEGATIVE); BARBITURATE SCREEN, URINE NEGATIVE (NEGATIVE); BENZODIAZEPINES SCREEN,URINE NEGATIVE (NEGATIVE); CANNABINOID SCREEN,URINE NEGATIVE (NEGATIVE); COCAINE SCREEN,URINE NEGATIVE (NEGATIVE); METHADONE SCREEN, URINE NEGATIVE (NEGATIVE); OPIATE SCREEN,URINE POSITIVE (NEGATIVE); PHENCYCLIDINE SCREEN,URINE NEGATIVE (NEGATIVE)
[2017-06-10 10:19] LABS: ANION GAP 10 mmol/L (8-16); CALCIUM, TOTAL 8.9 mg/dL (8.8-10.5); CARBON DIOXIDE 26 mmol/L (22-29); CHLORIDE 105 mmol/L (98-107); CREATININE 0.97 mg/dL (0.60-1.30); GLOMERULAR FILTR. RATE CALC 60 mL/min (>60); GLUCOSE,RANDOM 117 mg/dL (70-110); POTASSIUM 3.9 mmol/L (3.5-5.1); SODIUM SERUM 141 mmol/L (136-145); UREA NITROGEN, BLOOD 14 mg/dL (7-18)
[2017-06-10 10:28] LABS: ALANINE AMINOTRANSFERASE 33 U/L (12-78); ALBUMIN 3.8 g/dL (3.4-5.0); ALKALINE PHOSPHATASE 84 U/L (46-116); ASPARTATE AMINOTRANSFERASE 22 U/L (15-37); BILIRUBIN,TOTAL 0.3 mg/dL (0.1-1.0); TOTAL PROTEIN, SERUM 7.3 g/dL (6.4-8.2)
[2017-06-10] MEDS ORDERED: LORazepam 2 MG/ML VIAL IM ONE (11:00)
[2017-06-10] MEDS ORDERED: HALOPERIDOL LACTATE 5 MG/ML VIAL IM ONE (11:00)
[2017-06-10] MEDS ORDERED: ZOLPIDEM TARTRATE 10 MG TABLET PO PRN (12:00)
[2017-06-10] MEDS ORDERED: QUEtiapine FUMARATE 100 MG TABLET PO PRN (12:00)
[2017-06-10] MEDS ORDERED: GuaiFENesin/D-METHORPHAN [SUGAR-FREE] 200-20MG/10 ML SYRUP UDCUP PO PRN (14:00)
[2017-06-10] MEDS ORDERED: PROMETHAZINE HCL 25 MG TABLET PO PRN ×2 (14:00)
[2017-06-10] MEDS ORDERED: MAG HYDROX/AL HYDROX/SIMETH ES 30 ML SUSPENSION UDCUP PO PRN (14:00)
[2017-06-10] MEDS ORDERED: LOPERAMIDE HCL 2 MG CAPSULE PO PRN (14:00)
[2017-06-10] MEDS ORDERED: MAGNESIUM HYDROXIDE SUSPENSION 30 ML UDCUP PO PRN (14:00)
[2017-06-10 16:34] VITALS: BP 105/67
[2017-06-10] MEDS: OXYBUTYNIN CHLORIDE 5 MG TABLET PO SCH (17:17)
[2017-06-10] MEDS: THIAMINE HCL 100 MG TABLET PO SCH (17:17)
[2017-06-10] MEDS: ROSUVASTATIN CALCIUM 10 MG TABLET PO SCH (20:33)
[2017-06-10] MEDS: TraZODone HCL 100 MG TABLET PO SCH (20:33)
[2017-06-10] MEDS: QUEtiapine FUMARATE 200 MG TABLET PO SCH (20:33)
[2017-06-11 00:21] VITALS: BP 114/64
[2017-06-11] MEDS: NALTREXONE HCL 50 MG TABLET PO SCH (08:07)
[2017-06-11] MEDS: THIAMINE HCL 100 MG TABLET PO SCH ×2 (08:07→16:09)
[2017-06-11] MEDS: MULTIVITAMINS WITH MINERALS, THERAPEUTIC TABLET PO SCH (08:07)
[2017-06-11] MEDS: FOLIC ACID 1 MG TABLET PO SCH (08:07)
[2017-06-11] MEDS: PARoxetine HCL 20 MG TABLET PO SCH (08:07)
[2017-06-11] MEDS: OXYBUTYNIN CHLORIDE 5 MG TABLET PO SCH ×3 (08:07→16:09)
[2017-06-11] MEDS: ASPIRIN 81 MG EC TABLET PO SCH (08:08)
[2017-06-11] MEDS: BuPROPion HCL XL 150 MG ER TABLET PO SCH (08:08)
[2017-06-11] MEDS: FLUTICASONE/VILANTEROL 200-25 MCG/INH INHALER [14] IH SCH (08:09)
[2017-06-11] MEDS: DOCUSATE SODIUM 100 MG CAPSULE PO SCH (08:09)
[2017-06-11] MEDS: NICOTINE 21 MG/24 HOUR PATCH TD SCH (08:09)
[2017-06-11 08:34] VITALS: BP 109/60
[2017-06-11 16:09] VITALS: BP 119/84
[2017-06-11] MEDS: ESTRADIOL 1 MG TABLET PO SCH (16:09)
[2017-06-11] MEDS: LORazepam 2 MG TABLET PO PRN (16:09)
[2017-06-11] MEDS: ACETAMINOPHEN 325 MG TABLET PO PRN (16:09)
[2017-06-11 16:16] VITALS: BP 119/84
[2017-06-11] MEDS: QUEtiapine FUMARATE 200 MG TABLET PO SCH (20:19)
[2017-06-11] MEDS: ROSUVASTATIN CALCIUM 10 MG TABLET PO SCH (20:19)
[2017-06-11] MEDS: TraZODone HCL 100 MG TABLET PO SCH (20:19)
[2017-06-12 06:35] VITALS: BP 112/77
[2017-06-12] MEDS: DOCUSATE SODIUM 100 MG CAPSULE PO SCH (08:11)
[2017-06-12] MEDS: PARoxetine HCL 20 MG TABLET PO SCH (08:11)
[2017-06-12] MEDS: ESTRADIOL 1 MG TABLET PO SCH (08:11)
[2017-06-12] MEDS: THIAMINE HCL 100 MG TABLET PO SCH ×2 (08:12→16:28)
[2017-06-12] MEDS: BuPROPion HCL XL 150 MG ER TABLET PO SCH (08:12)
[2017-06-12] MEDS: FLUTICASONE/VILANTEROL 200-25 MCG/INH INHALER [14] IH SCH (08:12)
[2017-06-12] MEDS: NICOTINE 21 MG/24 HOUR PATCH TD SCH (08:12)
[2017-06-12] MEDS: OXYBUTYNIN CHLORIDE 5 MG TABLET PO SCH ×3 (08:12→16:28)
[2017-06-12] MEDS: FOLIC ACID 1 MG TABLET PO SCH (08:12)
[2017-06-12] MEDS: ASPIRIN 81 MG EC TABLET PO SCH (08:12)
[2017-06-12] MEDS: MULTIVITAMINS WITH MINERALS, THERAPEUTIC TABLET PO SCH (08:12)
[2017-06-12] MEDS: NALTREXONE HCL 50 MG TABLET PO SCH (08:12)
[2017-06-12 08:24] VITALS: BP 115/60
[2017-06-12] MEDS: ACETAMINOPHEN 325 MG TABLET PO PRN ×2 (08:24→14:16)
[2017-06-12] MEDS: LORazepam 2 MG TABLET PO PRN ×2 (08:24→14:16)
[2017-06-12 08:38] VITALS: BP 115/60
[2017-06-12 14:16] VITALS: BP 113/76
[2017-06-12 16:28] VITALS: BP 110/84
[2017-06-12] MEDS: QUEtiapine FUMARATE 200 MG TABLET PO SCH (20:48)
[2017-06-12] MEDS: TraZODone HCL 100 MG TABLET PO SCH (20:48)
[2017-06-12] MEDS: ROSUVASTATIN CALCIUM 10 MG TABLET PO SCH (20:48)
[2017-06-13 02:00] VITALS: BP 101/76
[2017-06-13 08:34] VITALS: BP 111/75
[2017-06-13] MEDS: PARoxetine HCL 20 MG TABLET PO SCH (09:08)
[2017-06-13] MEDS: DOCUSATE SODIUM 100 MG CAPSULE PO SCH (09:09)
[2017-06-13] MEDS: NALTREXONE HCL 50 MG TABLET PO SCH (09:09)
[2017-06-13] MEDS: FOLIC ACID 1 MG TABLET PO SCH (09:09)
[2017-06-13] MEDS: MULTIVITAMINS WITH MINERALS, THERAPEUTIC TABLET PO SCH (09:09)
[2017-06-13] MEDS: ASPIRIN 81 MG EC TABLET PO SCH (09:09)
[2017-06-13] MEDS: THIAMINE HCL 100 MG TABLET PO SCH ×2 (09:09→16:18)
[2017-06-13] MEDS: BuPROPion HCL XL 150 MG ER TABLET PO SCH (09:09)
[2017-06-13] MEDS: OXYBUTYNIN CHLORIDE 5 MG TABLET PO SCH ×3 (09:10→16:18)
[2017-06-13] MEDS: ESTRADIOL 1 MG TABLET PO SCH (09:10)
[2017-06-13] MEDS: FLUTICASONE/VILANTEROL 200-25 MCG/INH INHALER [14] IH SCH (09:11)
[2017-06-13] MEDS: NICOTINE 21 MG/24 HOUR PATCH TD SCH (09:12)
[2017-06-13] MEDS: LORazepam 2 MG TABLET PO PRN ×2 (11:58→16:18)
[2017-06-13] MEDS: HydrOXYzine PAMOATE 50 MG CAPSULE PO PRN (14:54)
[2017-06-13 16:10] VITALS: BP 120/76
[2017-06-13] MEDS: ROSUVASTATIN CALCIUM 10 MG TABLET PO SCH (20:32)
[2017-06-13] MEDS: QUEtiapine FUMARATE 200 MG TABLET PO SCH (20:32)
[2017-06-13] MEDS: TraZODone HCL 100 MG TABLET PO SCH (20:32)
[2017-06-14 03:40] VITALS: BP 103/68
[2017-06-14] MEDS: NALTREXONE HCL 50 MG TABLET PO SCH (08:07)
[2017-06-14] MEDS: DOCUSATE SODIUM 100 MG CAPSULE PO SCH (08:07)
[2017-06-14] MEDS: THIAMINE HCL 100 MG TABLET PO SCH ×2 (08:07→16:39)
[2017-06-14] MEDS: OXYBUTYNIN CHLORIDE 5 MG TABLET PO SCH ×3 (08:07→16:39)
[2017-06-14] MEDS: MULTIVITAMINS WITH MINERALS, THERAPEUTIC TABLET PO SCH (08:07)
[2017-06-14] MEDS: ASPIRIN 81 MG EC TABLET PO SCH (08:07)
[2017-06-14] MEDS: NICOTINE 21 MG/24 HOUR PATCH TD SCH (08:08)
[2017-06-14] MEDS: BuPROPion HCL XL 150 MG ER TABLET PO SCH (08:08)
[2017-06-14] MEDS: PARoxetine HCL 20 MG TABLET PO SCH (08:08)
[2017-06-14] MEDS: ESTRADIOL 1 MG TABLET PO SCH (08:08)
[2017-06-14] MEDS: FOLIC ACID 1 MG TABLET PO SCH (08:08)
[2017-06-14 08:19] VITALS: BP 104/66
[2017-06-14] MEDS: HydrOXYzine PAMOATE 50 MG CAPSULE PO PRN (08:19)
[2017-06-14] MEDS: FLUTICASONE/VILANTEROL 200-25 MCG/INH INHALER [14] IH SCH (08:19)
[2017-06-14] MEDS: ACETAMINOPHEN 325 MG TABLET PO PRN (08:19)
[2017-06-14] MEDS ORDERED: IBUPROFEN 600 MG TABLET PO PRN (10:45)
[2017-06-14 11:50] VITALS: BP 112/71
[2017-06-14] MEDS: LORazepam 2 MG TABLET PO PRN (11:52)
[2017-06-14] MEDS ORDERED: DiphenhydrAMINE HCL 50 MG/ML VIAL IM ONE (13:15)
[2017-06-14] MEDS ORDERED: HALOPERIDOL LACTATE 5 MG/ML VIAL IM ONE (13:15)
[2017-06-14 13:55] VITALS: BP 106/67
[2017-06-14 16:21] VITALS: BP 112/73
[2017-06-14] MEDS: TraZODone HCL 100 MG TABLET PO SCH (20:19)
[2017-06-14] MEDS: ROSUVASTATIN CALCIUM 10 MG TABLET PO SCH (20:19)
[2017-06-14] MEDS: QUEtiapine FUMARATE 200 MG TABLET PO SCH (20:19)
[2017-06-15 06:23] LABS: GLUCOMETER DEV NAME(LOC) BV2S; GLUCOSE,POINT OF CARE 144 MG/DL (70-110)
[2017-06-15 06:40] VITALS: BP_SYST 107; BP_SYST 108; BP_DIAS 62; BP_DIAS 70
[2017-06-15 08:00] VITALS: BP 113/70
[2017-06-15] MEDS: NALTREXONE HCL 50 MG TABLET PO SCH (08:29)
[2017-06-15] MEDS: BuPROPion HCL XL 150 MG ER TABLET PO SCH (08:29)
[2017-06-15] MEDS: OXYBUTYNIN CHLORIDE 5 MG TABLET PO SCH ×3 (08:29→16:06)
[2017-06-15] MEDS: FOLIC ACID 1 MG TABLET PO SCH (08:29)
[2017-06-15] MEDS: ASPIRIN 81 MG EC TABLET PO SCH (08:29)
[2017-06-15] MEDS: ESTRADIOL 1 MG TABLET PO SCH (08:30)
[2017-06-15] MEDS: THIAMINE HCL 100 MG TABLET PO SCH ×2 (08:30→16:06)
[2017-06-15] MEDS: FLUTICASONE/VILANTEROL 200-25 MCG/INH INHALER [14] IH SCH (08:30)
[2017-06-15] MEDS: DOCUSATE SODIUM 100 MG CAPSULE PO SCH (08:30)
[2017-06-15] MEDS: MULTIVITAMINS WITH MINERALS, THERAPEUTIC TABLET PO SCH (08:30)
[2017-06-15] MEDS: PARoxetine HCL 20 MG TABLET PO SCH (08:30)
[2017-06-15] MEDS: NICOTINE 21 MG/24 HOUR PATCH TD SCH (08:30)
[2017-06-15 10:10] VITALS: BP 116/72
[2017-06-15] MEDS: ACETAMINOPHEN 325 MG TABLET PO PRN ×2 (10:10→16:08)
[2017-06-15] MEDS: LORazepam 2 MG TABLET PO PRN ×2 (10:10→16:06)
[2017-06-15] MEDS: HydrOXYzine PAMOATE 50 MG CAPSULE PO PRN (12:48)
[2017-06-15] MEDS ORDERED: PARO-37 PO (13:28)
[2017-06-15] MEDS ORDERED: BUPR-47 PO (13:28)
[2017-06-15] MEDS ORDERED: NALT50TA PO (13:28)
[2017-06-15] MEDS ORDERED: QUET200T29 PO (13:28)
[2017-06-15] MEDS ORDERED: TRAZ-147 PO (13:28)
[2017-06-15 16:06] VITALS: BP 108/62
[2017-06-15 16:16] VITALS: BP 108/62
[2017-06-15] MEDS: ROSUVASTATIN CALCIUM 10 MG TABLET PO SCH (20:42)
[2017-06-15] MEDS: TraZODone HCL 100 MG TABLET PO SCH (20:42)
[2017-06-15] MEDS ORDERED: QUEtiapine FUMARATE 300 MG TABLET PO SCH (21:00)
[2017-06-16 00:56] VITALS: BP 116/71
[2017-06-16] MEDS: LORazepam 2 MG TABLET PO PRN (06:54)
[2017-06-16 08:20] VITALS: BP 98/59
[2017-06-16] MEDS: NALTREXONE HCL 50 MG TABLET PO SCH (08:44)
[2017-06-16] MEDS: ESTRADIOL 1 MG TABLET PO SCH (08:44)
[2017-06-16] MEDS: OXYBUTYNIN CHLORIDE 5 MG TABLET PO SCH ×2 (08:44→12:52)
[2017-06-16] MEDS: FOLIC ACID 1 MG TABLET PO SCH (08:44)
[2017-06-16] MEDS: BuPROPion HCL XL 150 MG ER TABLET PO SCH (08:44)
[2017-06-16] MEDS: PARoxetine HCL 20 MG TABLET PO SCH (08:44)
[2017-06-16] MEDS: MULTIVITAMINS WITH MINERALS, THERAPEUTIC TABLET PO SCH (08:44)
[2017-06-16] MEDS: THIAMINE HCL 100 MG TABLET PO SCH (08:44)
[2017-06-16] MEDS: DOCUSATE SODIUM 100 MG CAPSULE PO SCH (08:44)
[2017-06-16] MEDS: ASPIRIN 81 MG EC TABLET PO SCH (08:44)
[2017-06-16] MEDS: FLUTICASONE/VILANTEROL 200-25 MCG/INH INHALER [14] IH SCH (08:46)
[2017-06-16] MEDS: NICOTINE 21 MG/24 HOUR PATCH TD SCH (08:46)
== END 2017-06-16 13:25 | disposition home or self-care (01) | DRG 885 ==
LOC: EMS 08:41 → B2X 12:38
PROVIDERS: ADMIT Psychiatry & Neurology Psychiatry; ATTEND Psychiatry & Neurology Psychiatry
DX: F25.9 Schizoaffective disorder, unspecified (principal); B19.20 Unspecified viral hepatitis C without hepatic coma; E11.9 Type 2 diabetes mellitus without complications; D64.9 Anemia, unspecified; E66.9 Obesity, unspecified; E78.5 Hyperlipidemia, unspecified; F17.210 Nicotine dependence, cigarettes, uncomplicated; F31.9 Bipolar disorder, unspecified; G89.29 Other chronic pain; I10 Essential (primary) hypertension; I25.10 Atherosclerotic heart disease of native coronary artery without angina pectoris; J44.9 Chronic obstructive pulmonary disease, unspecified; K59.00 Constipation, unspecified; R32 Unspecified urinary incontinence; F15.10 Other stimulant abuse, uncomplicated; M19.90 Unspecified osteoarthritis, unspecified site; Z79.899 Other long term (current) drug therapy; Z79.82 Long term (current) use of aspirin
CPT/HCPCS: 82962; 87081; 96372; 99285; G0480; J1200; J1630; J2060

== ENCOUNTER 2017-06-18 19:10 | Emergency (ER) | payer MEDICARE, MEDICAID ==
[~2017-06-18] VITALS: Ht 157.5 cm; Wt 100.0 kg
[~2017-06-18 19:10] MED LIST changes: +BUPR-47 PO; -BUPR-93 PO; +ESTR-95 PO; -FAMO20 PO; +NALT50TA PO; +PARO-37 PO; -PARO20TA24 PO; -PROV5 PO; -QUET100T PO; -QUET200T PO; +QUET200T29 PO
[2017-06-18 19:11] VITALS: BP 122/62
[2017-06-18 19:40] LABS: BASOPHILS % (AUTO) 0.3 % (0.0-2.0); HEMATOCRIT 40.1 % (36-46); HEMOGLOBIN 14.2 g/dL (12.0-16.0); LYMPHOCYTES # (AUTO) 2.9 K/uL (1.0-4.8); LYMPHOCYTES % (AUTO) 36.2 % (22.0-44.0); MEAN CORPUSCULAR HEMOGLOBIN 32.8 pg (26.0-34.0); MEAN CORPUSCULAR HGB CONC 35.3 G/dL (31.0-37.0); MEAN CORPUSCULAR VOLUME 93 fL (80-100); MONOCYTES # (AUTO) 0.6 K/uL (0.1-1.0); NEUTROPHILS # (AUTO) 4.3 K/uL (1.8-7.7); NEUTROPHILS % (AUTO) 54.5 % (40.0-70.0); PLATELET COUNT (AUTO) 269 K/uL (150-450); RED BLOOD CELL COUNT(AUTO) 4.32 MIL/uL (4.00-5.20); RED CELL DISTRIBUTION WIDTH 12.5 % (11.5-14.5)
[2017-06-18 19:48] LABS: ANION GAP 9 mmol/L (8-16); CALCIUM, TOTAL 9.1 mg/dL (8.8-10.5); CARBON DIOXIDE 29 mmol/L (22-29); CHLORIDE 104 mmol/L (98-107); CREATININE 1.07 mg/dL (0.60-1.30); GLOMERULAR FILTR. RATE CALC 54 mL/min (>60); GLUCOSE,RANDOM 94 mg/dL (70-110); POTASSIUM 3.6 mmol/L (3.5-5.1); SODIUM SERUM 142 mmol/L (136-145); UREA NITROGEN, BLOOD 19 mg/dL (7-18)
[2017-06-18 19:54] LABS: ALANINE AMINOTRANSFERASE 34 U/L (12-78); ALKALINE PHOSPHATASE 81 U/L (46-116); ASPARTATE AMINOTRANSFERASE 18 U/L (15-37); BILIRUBIN,TOTAL 0.2 mg/dL (0.1-1.0); TOTAL PROTEIN, SERUM 7.5 g/dL (6.4-8.2)
== END 2017-06-18 20:26 | disposition home or self-care (01) ==
LOC: EMS 19:11
DX: F20.9 Schizophrenia, unspecified (principal); F32.9 Major depressive disorder, single episode, unspecified; J44.9 Chronic obstructive pulmonary disease, unspecified; Z79.82 Long term (current) use of aspirin; Z79.899 Other long term (current) drug therapy
CPT/HCPCS: 36415; 80053; 85025; 99284; G0480

== ENCOUNTER 2017-06-21 14:20 | Inpatient (IN) | payer MEDICARE, MEDICAID ==
[~2017-06-21] VITALS: Ht 157.5 cm; Wt 97.5 kg
[2017-06-21] MEDS ORDERED: LOPERAMIDE HCL 2 MG CAPSULE PO PRN (17:15)
[2017-06-21] MEDS ORDERED: PROMETHAZINE HCL 25 MG TABLET PO PRN (17:15)
[2017-06-21] MEDS ORDERED: ZOLPIDEM TARTRATE 10 MG TABLET PO PRN (17:15)
[2017-06-21] MEDS ORDERED: MAGNESIUM HYDROXIDE SUSPENSION 30 ML UDCUP PO PRN (17:15)
[2017-06-21] MEDS ORDERED: MAG HYDROX/AL HYDROX/SIMETH ES 30 ML SUSPENSION UDCUP PO PRN (17:15)
[2017-06-21] MEDS ORDERED: HydrOXYzine PAMOATE 50 MG CAPSULE PO PRN (17:15)
[2017-06-21] MEDS ORDERED: GuaiFENesin/D-METHORPHAN [SUGAR-FREE] 200-20MG/10 ML SYRUP UDCUP PO PRN (17:15)
[2017-06-21 18:18] VITALS: BP 129/59
[2017-06-21] MEDS: THIAMINE HCL 100 MG TABLET PO SCH (18:24)
[2017-06-21] MEDS: TraZODone HCL 100 MG TABLET PO SCH (20:34)
[2017-06-21] MEDS: ROSUVASTATIN CALCIUM 10 MG TABLET PO SCH (20:34)
[2017-06-21] MEDS: QUEtiapine FUMARATE 300 MG TABLET PO SCH (20:38)
[2017-06-22 08:00] VITALS: BP 112/72
[2017-06-22] MEDS: ESTRADIOL 1 MG TABLET PO SCH (09:22)
[2017-06-22] MEDS: DOCUSATE SODIUM 100 MG CAPSULE PO SCH (09:23)
[2017-06-22] MEDS: FOLIC ACID 1 MG TABLET PO SCH (09:23)
[2017-06-22] MEDS: AmLODIPine BESYLATE 2.5 MG TABLET PO SCH (09:23)
[2017-06-22] MEDS: ASPIRIN 81 MG EC TABLET PO SCH (09:23)
[2017-06-22] MEDS: NALTREXONE HCL 50 MG TABLET PO SCH (09:24)
[2017-06-22] MEDS: PARoxetine HCL 20 MG TABLET PO SCH (09:24)
[2017-06-22] MEDS: BuPROPion HCL XL 150 MG ER TABLET PO SCH (09:24)
[2017-06-22] MEDS: MULTIVITAMINS WITH MINERALS, THERAPEUTIC TABLET PO SCH (09:24)
[2017-06-22] MEDS: THIAMINE HCL 100 MG TABLET PO SCH ×2 (09:29→17:27)
[2017-06-22] MEDS: NICOTINE 21 MG/24 HOUR PATCH TD SCH (09:29)
[2017-06-22] MEDS: FLUTICASONE/VILANTEROL 100-25 MCG/INH INHALER [14] IH SCH (10:20)
[2017-06-22] MEDS ORDERED: LORazepam 2 MG/ML VIAL IM ONE (12:30)
[2017-06-22] MEDS ORDERED: DiphenhydrAMINE HCL 50 MG/ML VIAL IM ONE (12:30)
[2017-06-22] MEDS ORDERED: HALOPERIDOL LACTATE 5 MG/ML VIAL IM ONE (12:30)
[2017-06-22] MEDS: OXYBUTYNIN CHLORIDE 5 MG TABLET PO SCH (17:35)
[2017-06-22 18:06] VITALS: BP 98/57
[2017-06-22] MEDS: QUEtiapine FUMARATE 300 MG TABLET PO SCH (20:53)
[2017-06-22] MEDS: TraZODone HCL 100 MG TABLET PO SCH (20:53)
[2017-06-22] MEDS: ROSUVASTATIN CALCIUM 10 MG TABLET PO SCH (20:53)
[2017-06-23 08:00] VITALS: BP 131/81
[2017-06-23] MEDS: MULTIVITAMINS WITH MINERALS, THERAPEUTIC TABLET PO SCH (08:24)
[2017-06-23] MEDS: BuPROPion HCL XL 150 MG ER TABLET PO SCH (08:25)
[2017-06-23] MEDS: OXYBUTYNIN CHLORIDE 5 MG TABLET PO SCH ×2 (08:25→16:31)
[2017-06-23] MEDS: DOCUSATE SODIUM 100 MG CAPSULE PO SCH (08:25)
[2017-06-23] MEDS: ASPIRIN 81 MG EC TABLET PO SCH (08:25)
[2017-06-23] MEDS: FLUTICASONE/VILANTEROL 100-25 MCG/INH INHALER [14] IH SCH (08:25)
[2017-06-23] MEDS: PARoxetine HCL 20 MG TABLET PO SCH (08:26)
[2017-06-23] MEDS: THIAMINE HCL 100 MG TABLET PO SCH ×2 (08:26→16:31)
[2017-06-23] MEDS: AmLODIPine BESYLATE 2.5 MG TABLET PO SCH (08:26)
[2017-06-23] MEDS: FOLIC ACID 1 MG TABLET PO SCH (08:26)
[2017-06-23] MEDS: ESTRADIOL 1 MG TABLET PO SCH (08:26)
[2017-06-23] MEDS: NALTREXONE HCL 50 MG TABLET PO SCH (08:26)
[2017-06-23] MEDS: NICOTINE 21 MG/24 HOUR PATCH TD SCH (08:31)
[2017-06-23] MEDS: LORazepam 2 MG TABLET PO PRN (13:06)
[2017-06-23] MEDS: ACETAMINOPHEN 325 MG TABLET PO PRN (13:06)
[2017-06-23 16:52] VITALS: BP 109/68
[2017-06-23] MEDS: TraZODone HCL 100 MG TABLET PO SCH (20:31)
[2017-06-23] MEDS: QUEtiapine FUMARATE 300 MG TABLET PO SCH (20:31)
[2017-06-23] MEDS: ROSUVASTATIN CALCIUM 10 MG TABLET PO SCH (20:32)
[2017-06-24 08:30] VITALS: BP 105/67
[2017-06-24] MEDS: AmLODIPine BESYLATE 2.5 MG TABLET PO SCH (08:42)
[2017-06-24] MEDS: PARoxetine HCL 20 MG TABLET PO SCH (08:43)
[2017-06-24] MEDS: DOCUSATE SODIUM 100 MG CAPSULE PO SCH (08:43)
[2017-06-24] MEDS: BuPROPion HCL XL 150 MG ER TABLET PO SCH (08:44)
[2017-06-24] MEDS: MULTIVITAMINS WITH MINERALS, THERAPEUTIC TABLET PO SCH (08:44)
[2017-06-24] MEDS: ESTRADIOL 1 MG TABLET PO SCH (08:44)
[2017-06-24] MEDS: FOLIC ACID 1 MG TABLET PO SCH (08:44)
[2017-06-24] MEDS: THIAMINE HCL 100 MG TABLET PO SCH ×2 (08:44→16:45)
[2017-06-24] MEDS: OXYBUTYNIN CHLORIDE 5 MG TABLET PO SCH ×3 (08:44→16:45)
[2017-06-24] MEDS: NALTREXONE HCL 50 MG TABLET PO SCH (08:44)
[2017-06-24] MEDS: ASPIRIN 81 MG EC TABLET PO SCH (08:44)
[2017-06-24] MEDS: NICOTINE 21 MG/24 HOUR PATCH TD SCH (08:53)
[2017-06-24] MEDS: FLUTICASONE/VILANTEROL 100-25 MCG/INH INHALER [14] IH SCH (09:00)
[2017-06-24] MEDS: ACETAMINOPHEN 325 MG TABLET PO PRN (10:13)
[2017-06-24] MEDS: LORazepam 2 MG TABLET PO PRN (10:13)
[2017-06-24] MEDS ORDERED: LORazepam 2 MG/ML VIAL IM ONE (15:30)
[2017-06-24] MEDS ORDERED: DiphenhydrAMINE HCL 50 MG/ML VIAL IM ONE (15:30)
[2017-06-24] MEDS ORDERED: HALOPERIDOL LACTATE 5 MG/ML VIAL IM ONE (15:30)
[2017-06-24] MEDS: MUPIROCIN CALCIUM 2% 15 GM CREAM TP SCH (16:48)
[2017-06-24 17:22] VITALS: BP 118/87
[2017-06-24] MEDS: ROSUVASTATIN CALCIUM 10 MG TABLET PO SCH (20:26)
[2017-06-24] MEDS: QUEtiapine FUMARATE 300 MG TABLET PO SCH (20:26)
[2017-06-24] MEDS: TraZODone HCL 100 MG TABLET PO SCH (20:27)
[2017-06-25 08:18] VITALS: BP 117/70
[2017-06-25] MEDS: FLUTICASONE/VILANTEROL 100-25 MCG/INH INHALER [14] IH SCH (08:56)
[2017-06-25] MEDS: DOCUSATE SODIUM 100 MG CAPSULE PO SCH (08:56)
[2017-06-25] MEDS: OXYBUTYNIN CHLORIDE 5 MG TABLET PO SCH ×3 (08:57→15:54)
[2017-06-25] MEDS: FOLIC ACID 1 MG TABLET PO SCH (08:57)
[2017-06-25] MEDS: ASPIRIN 81 MG EC TABLET PO SCH (08:57)
[2017-06-25] MEDS: AmLODIPine BESYLATE 2.5 MG TABLET PO SCH (08:57)
[2017-06-25] MEDS: ESTRADIOL 1 MG TABLET PO SCH (08:57)
[2017-06-25] MEDS: PARoxetine HCL 20 MG TABLET PO SCH (08:58)
[2017-06-25] MEDS: NALTREXONE HCL 50 MG TABLET PO SCH (08:58)
[2017-06-25] MEDS: THIAMINE HCL 100 MG TABLET PO SCH ×2 (08:58→15:54)
[2017-06-25] MEDS: BuPROPion HCL XL 150 MG ER TABLET PO SCH (08:58)
[2017-06-25] MEDS: MULTIVITAMINS WITH MINERALS, THERAPEUTIC TABLET PO SCH (08:58)
[2017-06-25] MEDS: NICOTINE 21 MG/24 HOUR PATCH TD SCH (09:04)
[2017-06-25] MEDS: MUPIROCIN CALCIUM 2% 15 GM CREAM TP SCH ×2 (09:04→15:54)
[2017-06-25] MEDS: ACETAMINOPHEN 325 MG TABLET PO PRN (14:31)
[2017-06-25] MEDS: LORazepam 2 MG TABLET PO PRN (14:32)
[2017-06-25 16:00] VITALS: BP 102/67
[2017-06-25] MEDS: TraZODone HCL 100 MG TABLET PO SCH (20:13)
[2017-06-25] MEDS: ROSUVASTATIN CALCIUM 10 MG TABLET PO SCH (20:13)
[2017-06-25] MEDS: QUEtiapine FUMARATE 300 MG TABLET PO SCH (20:13)
[2017-06-26] MEDS: AmLODIPine BESYLATE 2.5 MG TABLET PO SCH (08:22)
[2017-06-26] MEDS: MULTIVITAMINS WITH MINERALS, THERAPEUTIC TABLET PO SCH (08:24)
[2017-06-26] MEDS: ASPIRIN 81 MG EC TABLET PO SCH (08:24)
[2017-06-26] MEDS: FOLIC ACID 1 MG TABLET PO SCH (08:24)
[2017-06-26] MEDS: OXYBUTYNIN CHLORIDE 5 MG TABLET PO SCH ×3 (08:24→17:06)
[2017-06-26] MEDS: NALTREXONE HCL 50 MG TABLET PO SCH (08:24)
[2017-06-26] MEDS: NICOTINE 21 MG/24 HOUR PATCH TD SCH (08:24)
[2017-06-26] MEDS: DOCUSATE SODIUM 100 MG CAPSULE PO SCH (08:24)
[2017-06-26] MEDS: THIAMINE HCL 100 MG TABLET PO SCH ×2 (08:24→17:06)
[2017-06-26] MEDS: PARoxetine HCL 20 MG TABLET PO SCH (08:24)
[2017-06-26] MEDS: ESTRADIOL 1 MG TABLET PO SCH (08:25)
[2017-06-26] MEDS: MUPIROCIN CALCIUM 2% 15 GM CREAM TP SCH ×2 (08:25→17:06)
[2017-06-26] MEDS: FLUTICASONE/VILANTEROL 100-25 MCG/INH INHALER [14] IH SCH (08:25)
[2017-06-26] MEDS: BuPROPion HCL XL 150 MG ER TABLET PO SCH (08:25)
[2017-06-26 10:15] VITALS: BP 113/71
[2017-06-26 10:42] VITALS: BP 118/78
[2017-06-26] MEDS: ACETAMINOPHEN 325 MG TABLET PO PRN (10:42)
[2017-06-26] MEDS: LORazepam 2 MG TABLET PO PRN ×2 (10:45→15:56)
[2017-06-26] MEDS: QUEtiapine FUMARATE 100 MG TABLET PO PRN (14:56)
[2017-06-26 17:07] VITALS: BP 114/70
[2017-06-26] MEDS: ROSUVASTATIN CALCIUM 10 MG TABLET PO SCH (20:17)
[2017-06-26] MEDS: TraZODone HCL 100 MG TABLET PO SCH (20:17)
[2017-06-26] MEDS: QUEtiapine FUMARATE 300 MG TABLET PO SCH (20:18)
[2017-06-27 06:40] VITALS: BP 103/61
[2017-06-27 08:11] VITALS: BP 102/67
[2017-06-27] MEDS: FOLIC ACID 1 MG TABLET PO SCH (08:34)
[2017-06-27] MEDS: PARoxetine HCL 20 MG TABLET PO SCH (08:34)
[2017-06-27] MEDS: ASPIRIN 81 MG EC TABLET PO SCH (08:34)
[2017-06-27] MEDS: MULTIVITAMINS WITH MINERALS, THERAPEUTIC TABLET PO SCH (08:35)
[2017-06-27] MEDS: OXYBUTYNIN CHLORIDE 5 MG TABLET PO SCH ×2 (08:35→12:24)
[2017-06-27] MEDS: AmLODIPine BESYLATE 2.5 MG TABLET PO SCH (08:35)
[2017-06-27] MEDS: DOCUSATE SODIUM 100 MG CAPSULE PO SCH (08:35)
[2017-06-27] MEDS: BuPROPion HCL XL 150 MG ER TABLET PO SCH (08:35)
[2017-06-27] MEDS: THIAMINE HCL 100 MG TABLET PO SCH (08:35)
[2017-06-27] MEDS: NALTREXONE HCL 50 MG TABLET PO SCH (08:35)
[2017-06-27] MEDS: ESTRADIOL 1 MG TABLET PO SCH (08:35)
[2017-06-27] MEDS: NICOTINE 21 MG/24 HOUR PATCH TD SCH (08:36)
[2017-06-27] MEDS: MUPIROCIN CALCIUM 2% 15 GM CREAM TP SCH (08:41)
[2017-06-27] MEDS: FLUTICASONE/VILANTEROL 100-25 MCG/INH INHALER [14] IH SCH (09:00)
[2017-06-27] MEDS: LORazepam 2 MG TABLET PO PRN (11:30)
[2017-06-27] MEDS: QUEtiapine FUMARATE 100 MG TABLET PO PRN (12:25)
[2017-06-27] MEDS ORDERED: AMLO2.5T PO (13:18)
[2017-06-27] MEDS ORDERED: MUPI1OIN4 NS (13:20)
[2017-06-29] MEDS ORDERED: MUPIROCIN CALCIUM 2% 15 GM CREAM TP SCH (17:00)
== END 2017-06-27 15:15 | disposition home or self-care (01) | DRG 885 ==
LOC: 3EX 17:37
PROVIDERS: ADMIT Psychiatry & Neurology Psychiatry; ATTEND Psychiatry & Neurology Psychiatry
DX: F25.1 Schizoaffective disorder, depressive type (principal); E11.9 Type 2 diabetes mellitus without complications; R45.851 Suicidal ideations; E66.3 Overweight; E78.5 Hyperlipidemia, unspecified; B19.20 Unspecified viral hepatitis C without hepatic coma; E66.9 Obesity, unspecified; G89.29 Other chronic pain; F32.9 Major depressive disorder, single episode, unspecified; I10 Essential (primary) hypertension; I25.10 Atherosclerotic heart disease of native coronary artery without angina pectoris; F17.210 Nicotine dependence, cigarettes, uncomplicated; J44.9 Chronic obstructive pulmonary disease, unspecified; K59.00 Constipation, unspecified; R32 Unspecified urinary incontinence; Z22.322 Carrier or suspected carrier of Methicillin resistant Staphylococcus aureus; Z80.3 Family history of malignant neoplasm of breast; Z91.14 Patient's other noncompliance with medication regimen; Z68.39 Body mass index [BMI] 39.0-39.9, adult; Z72.89 Other problems related to lifestyle
CPT/HCPCS: 87081; 93005; J1200; J1630; J2060

== ENCOUNTER 2017-07-02 10:15 | Emergency (ER) | payer MEDICARE, MEDICAID ==
[~2017-07-02] VITALS: Ht 157.5 cm; Wt 100.0 kg
[~2017-07-02 10:15] MED LIST changes: +AMLO2.5T PO; +MUPI1OIN4 NS
[2017-07-02] MEDS ORDERED: QUET300T2 PO (11:37)
[2017-07-02] MEDS ORDERED: HydrOXYzine HCL 10 MG TABLET PO ONE (11:45)
[2017-07-02 11:50] VITALS: BP 104/56
== END 2017-07-02 12:16 | disposition home or self-care (01) ==
LOC: EMS 10:18
DX: F43.20 Adjustment disorder, unspecified (principal); F20.9 Schizophrenia, unspecified; F31.9 Bipolar disorder, unspecified; J44.9 Chronic obstructive pulmonary disease, unspecified; F17.210 Nicotine dependence, cigarettes, uncomplicated
CPT/HCPCS: 99284

== ENCOUNTER 2017-07-08 11:55 | Inpatient (IN) | payer MEDICARE, MEDICAID ==
[~2017-07-08] VITALS: Ht 157.5 cm; Wt 100.2 kg
[~2017-07-08 11:55] MED LIST changes: -MUPI1OIN4 NS; -QUET200T29 PO; +QUET300T2 PO
[2017-07-08 12:40] VITALS: BP_SYST 109; BP_SYST 136; BP_DIAS 69; BP_DIAS 78
[2017-07-08] MEDS ORDERED: ZOLPIDEM TARTRATE 10 MG TABLET PO PRN (14:00)
[2017-07-08] MEDS ORDERED: TRAZ-147 PO (14:17)
[2017-07-08] MEDS ORDERED: PARO20TA24 PO (14:17)
[2017-07-08] MEDS ORDERED: BUPR-47 PO (14:17)
[2017-07-08] MEDS ORDERED: NALT50TA6 PO (14:17)
[2017-07-08 14:40] VITALS: BP 107/78
[2017-07-08] MEDS ORDERED: PROMETHAZINE HCL 25 MG TABLET PO PRN (15:45)
[2017-07-08] MEDS ORDERED: MAG HYDROX/AL HYDROX/SIMETH ES 30 ML SUSPENSION UDCUP PO PRN (15:45)
[2017-07-08] MEDS ORDERED: LOPERAMIDE HCL 2 MG CAPSULE PO PRN (15:45)
[2017-07-08] MEDS ORDERED: MAGNESIUM HYDROXIDE SUSPENSION 30 ML UDCUP PO PRN (15:45)
[2017-07-08] MEDS ORDERED: GuaiFENesin/D-METHORPHAN [SUGAR-FREE] 200-20MG/10 ML SYRUP UDCUP PO PRN (15:45)
[2017-07-08 16:36] VITALS: BP 109/69
[2017-07-08] MEDS: THIAMINE HCL 100 MG TABLET PO SCH (17:01)
[2017-07-08] MEDS: LORazepam 2 MG TABLET PO PRN (17:12)
[2017-07-08] MEDS: OXYBUTYNIN CHLORIDE 5 MG TABLET PO SCH (17:29)
[2017-07-08] MEDS: QUEtiapine FUMARATE 300 MG TABLET PO SCH (20:41)
[2017-07-08] MEDS: TraZODone HCL 100 MG TABLET PO SCH (20:41)
[2017-07-08] MEDS: ROSUVASTATIN CALCIUM 10 MG TABLET PO SCH (21:28)
[2017-07-09 00:05] VITALS: BP 104/66
[2017-07-09 07:43] LABS: BASOPHILS % (AUTO) 0.3 % (0.0-2.0); EOSINOPHILS % (AUTO) 3.6 % (1.0-6.0); HEMATOCRIT 42.2 % (36-46); HEMOGLOBIN 15.1 g/dL (12.0-16.0); LYMPHOCYTES # (AUTO) 1.9 K/uL (1.0-4.8); LYMPHOCYTES % (AUTO) 35.9 % (22.0-44.0); MEAN CORPUSCULAR HEMOGLOBIN 33.6 pg (26.0-34.0); MEAN CORPUSCULAR HGB CONC 35.7 G/dL (31.0-37.0); MEAN CORPUSCULAR VOLUME 94 fL (80-100); MONOCYTES # (AUTO) 0.4 K/uL (0.1-1.0); MONOCYTES % (AUTO) 7.3 % (2.0-9.0); NEUTROPHILS # (AUTO) 2.8 K/uL (1.8-7.7); NEUTROPHILS % (AUTO) 52.9 % (40.0-70.0); PLATELET COUNT (AUTO) 252 K/uL (150-450); RED BLOOD CELL COUNT(AUTO) 4.49 MIL/uL (4.00-5.20); RED CELL DISTRIBUTION WIDTH 12.8 % (11.5-14.5)
[2017-07-09 08:27] VITALS: BP 109/66
[2017-07-09 08:39] LABS: ALANINE AMINOTRANSFERASE 29 U/L (12-78); ALBUMIN 3.6 g/dL (3.4-5.0); ALKALINE PHOSPHATASE 73 U/L (46-116); ANION GAP 5 mmol/L (8-16); ASPARTATE AMINOTRANSFERASE 17 U/L (15-37); BILIRUBIN,TOTAL 0.2 mg/dL (0.1-1.0); CALCIUM, TOTAL 8.6 mg/dL (8.8-10.5); CARBON DIOXIDE 30 mmol/L (22-29); CHLORIDE 105 mmol/L (98-107); CHOL/HDL RATIO 5.3 (3.9-5.7); CHOLESTEROL 226 mg/dL (131-200); CREATININE 0.94 mg/dL (0.60-1.30); FREE T4 (FREE THYROXINE) 0.47 ng/dL (0.76-1.46); GLOMERULAR FILTR. RATE CALC > 60 mL/min (>60); GLUCOSE,RANDOM 73 mg/dL (70-110); HDL CHOLESTEROL 43 mg/dL (40-60); LDL CHOL (CALC.) 109 mg/dL (0-130); POTASSIUM 4.3 mmol/L (3.5-5.1); SODIUM SERUM 140 mmol/L (136-145); THYROID STIMULATING HORMONE 1.25 uIU/mL (0.36-3.74); TOTAL PROTEIN, SERUM 6.6 g/dL (6.4-8.2); TRIGLYCERIDES 370 mg/dL (15-150); UREA NITROGEN, BLOOD 14 mg/dL (7-18)
[2017-07-09] MEDS ORDERED: MUPIROCIN CALCIUM 2% 22 GM OINTMENT NASAL SCH (09:00)
[2017-07-09] MEDS: DOCUSATE SODIUM 100 MG CAPSULE PO SCH (09:45)
[2017-07-09] MEDS: OXYBUTYNIN CHLORIDE 5 MG TABLET PO SCH ×3 (09:45→16:01)
[2017-07-09] MEDS: ASPIRIN 81 MG EC TABLET PO SCH (09:45)
[2017-07-09] MEDS: MULTIVITAMINS WITH MINERALS, THERAPEUTIC TABLET PO SCH (09:45)
[2017-07-09] MEDS: FOLIC ACID 1 MG TABLET PO SCH (09:46)
[2017-07-09] MEDS: BuPROPion HCL XL 150 MG ER TABLET PO SCH (09:46)
[2017-07-09] MEDS: PARoxetine HCL 20 MG TABLET PO SCH (09:46)
[2017-07-09] MEDS: ESTRADIOL 1 MG TABLET PO SCH (09:46)
[2017-07-09] MEDS: AmLODIPine BESYLATE 2.5 MG TABLET PO SCH (09:46)
[2017-07-09] MEDS: NALTREXONE HCL 50 MG TABLET PO SCH (09:46)
[2017-07-09] MEDS: THIAMINE HCL 100 MG TABLET PO SCH ×2 (09:46→16:01)
[2017-07-09 09:55] VITALS: BP 112/74
[2017-07-09] MEDS: FLUTICASONE/VILANTEROL 200-25 MCG/INH INHALER [14] IH SCH (09:57)
[2017-07-09 16:01] VITALS: BP 114/66
[2017-07-09] MEDS: ACETAMINOPHEN 325 MG TABLET PO PRN (16:01)
[2017-07-09] MEDS: LORazepam 2 MG TABLET PO PRN (16:01)
[2017-07-09] MEDS: QUEtiapine FUMARATE 300 MG TABLET PO SCH (21:05)
[2017-07-09] MEDS: ROSUVASTATIN CALCIUM 10 MG TABLET PO SCH (21:05)
[2017-07-09] MEDS: TraZODone HCL 100 MG TABLET PO SCH (21:05)
[2017-07-10 07:24] VITALS: BP 120/86
[2017-07-10 08:55] VITALS: BP 114/80
[2017-07-10] MEDS: PARoxetine HCL 20 MG TABLET PO SCH (09:46)
[2017-07-10] MEDS: THIAMINE HCL 100 MG TABLET PO SCH ×2 (09:46→16:20)
[2017-07-10] MEDS: FOLIC ACID 1 MG TABLET PO SCH (09:47)
[2017-07-10] MEDS: MULTIVITAMINS WITH MINERALS, THERAPEUTIC TABLET PO SCH (09:47)
[2017-07-10] MEDS: NALTREXONE HCL 50 MG TABLET PO SCH (09:47)
[2017-07-10] MEDS: OXYBUTYNIN CHLORIDE 5 MG TABLET PO SCH ×3 (09:47→16:20)
[2017-07-10] MEDS: ASPIRIN 81 MG EC TABLET PO SCH (09:47)
[2017-07-10] MEDS: DOCUSATE SODIUM 100 MG CAPSULE PO SCH (09:47)
[2017-07-10] MEDS: BuPROPion HCL XL 150 MG ER TABLET PO SCH (09:47)
[2017-07-10] MEDS: FLUTICASONE/VILANTEROL 200-25 MCG/INH INHALER [14] IH SCH (09:48)
[2017-07-10] MEDS: AmLODIPine BESYLATE 2.5 MG TABLET PO SCH (09:48)
[2017-07-10] MEDS: ESTRADIOL 1 MG TABLET PO SCH (09:48)
[2017-07-10] MEDS: LORazepam 2 MG TABLET PO PRN ×2 (09:54→15:39)
[2017-07-10] MEDS: ACETAMINOPHEN 325 MG TABLET PO PRN (10:59)
[2017-07-10] MEDS: QUEtiapine FUMARATE 100 MG TABLET PO PRN (16:27)
[2017-07-10 16:32] VITALS: BP 122/74
[2017-07-10] MEDS: ROSUVASTATIN CALCIUM 10 MG TABLET PO SCH (20:37)
[2017-07-10] MEDS: TraZODone HCL 100 MG TABLET PO SCH (20:37)
[2017-07-10] MEDS: QUEtiapine FUMARATE 300 MG TABLET PO SCH (20:37)
[2017-07-11 02:21] VITALS: BP 115/66
[2017-07-11] MEDS: OXYBUTYNIN CHLORIDE 5 MG TABLET PO SCH ×3 (09:50→16:11)
[2017-07-11] MEDS: ASPIRIN 81 MG EC TABLET PO SCH (09:50)
[2017-07-11] MEDS: ESTRADIOL 1 MG TABLET PO SCH (09:50)
[2017-07-11] MEDS: PARoxetine HCL 20 MG TABLET PO SCH (09:50)
[2017-07-11] MEDS: AmLODIPine BESYLATE 2.5 MG TABLET PO SCH (09:50)
[2017-07-11] MEDS: THIAMINE HCL 100 MG TABLET PO SCH ×2 (09:50→16:11)
[2017-07-11] MEDS: DOCUSATE SODIUM 100 MG CAPSULE PO SCH (09:50)
[2017-07-11] MEDS: NALTREXONE HCL 50 MG TABLET PO SCH (09:50)
[2017-07-11] MEDS: BuPROPion HCL XL 150 MG ER TABLET PO SCH (09:51)
[2017-07-11] MEDS: MULTIVITAMINS WITH MINERALS, THERAPEUTIC TABLET PO SCH (09:51)
[2017-07-11] MEDS: FOLIC ACID 1 MG TABLET PO SCH (09:51)
[2017-07-11] MEDS: FLUTICASONE/VILANTEROL 200-25 MCG/INH INHALER [14] IH SCH (09:51)
[2017-07-11 10:16] VITALS: BP_SYST 101; BP_SYST 103; BP_DIAS 60; BP_DIAS 62
[2017-07-11] MEDS: LORazepam 2 MG TABLET PO PRN ×2 (10:35→16:11)
[2017-07-11] MEDS: HydrOXYzine PAMOATE 50 MG CAPSULE PO PRN ×2 (10:35→17:11)
[2017-07-11 16:12] VITALS: BP 112/65
[2017-07-11] MEDS: ACETAMINOPHEN 325 MG TABLET PO PRN (16:12)
[2017-07-11] MEDS: TraZODone HCL 100 MG TABLET PO SCH (21:02)
[2017-07-11] MEDS: QUEtiapine FUMARATE 300 MG TABLET PO SCH (21:02)
[2017-07-11] MEDS: ROSUVASTATIN CALCIUM 10 MG TABLET PO SCH (21:03)
[2017-07-12 05:03] VITALS: BP 116/64
[2017-07-12] MEDS: AmLODIPine BESYLATE 2.5 MG TABLET PO SCH (09:00)
[2017-07-12] MEDS: THIAMINE HCL 100 MG TABLET PO SCH (10:06)
[2017-07-12] MEDS: OXYBUTYNIN CHLORIDE 5 MG TABLET PO SCH ×2 (10:06→12:42)
[2017-07-12] MEDS: FOLIC ACID 1 MG TABLET PO SCH (10:06)
[2017-07-12] MEDS: ESTRADIOL 1 MG TABLET PO SCH (10:06)
[2017-07-12] MEDS: NALTREXONE HCL 50 MG TABLET PO SCH (10:06)
[2017-07-12] MEDS: MULTIVITAMINS WITH MINERALS, THERAPEUTIC TABLET PO SCH (10:06)
[2017-07-12] MEDS: ASPIRIN 81 MG EC TABLET PO SCH (10:06)
[2017-07-12] MEDS: BuPROPion HCL XL 150 MG ER TABLET PO SCH (10:06)
[2017-07-12] MEDS: DOCUSATE SODIUM 100 MG CAPSULE PO SCH (10:06)
[2017-07-12] MEDS: PARoxetine HCL 20 MG TABLET PO SCH (10:07)
[2017-07-12] MEDS: FLUTICASONE/VILANTEROL 200-25 MCG/INH INHALER [14] IH SCH (10:07)
[2017-07-12 10:20] VITALS: BP 100/76
[2017-07-12 10:56] VITALS: BP 122/79
[2017-07-12] MEDS: LORazepam 2 MG TABLET PO PRN (11:01)
[2017-07-12] MEDS: HydrOXYzine PAMOATE 50 MG CAPSULE PO PRN (11:01)
[2017-07-12] MEDS: QUEtiapine FUMARATE 100 MG TABLET PO PRN (13:00)
[2017-07-12] MEDS ORDERED: NALT50TA PO (15:01)
[2017-07-12] MEDS ORDERED: QUET300T18 PO (15:01)
[2017-07-12] MEDS ORDERED: BUPR-47 PO (15:01)
[2017-07-12] MEDS ORDERED: PARO-37 PO (15:01)
[2017-07-12] MEDS ORDERED: TRAZ-147 PO (15:01)
== END 2017-07-12 16:00 | disposition home or self-care (01) | DRG 885 ==
LOC: B2S 14:06
PROVIDERS: ADMIT Psychiatry & Neurology Psychiatry; ATTEND Psychiatry & Neurology Psychiatry
DX: F25.0 Schizoaffective disorder, bipolar type (principal); R45.851 Suicidal ideations; Z68.41 Body mass index [BMI] 40.0-44.9, adult; Z91.19 Patient's noncompliance with other medical treatment and regimen; E55.9 Vitamin D deficiency, unspecified; F17.200 Nicotine dependence, unspecified, uncomplicated; E66.9 Obesity, unspecified; E78.5 Hyperlipidemia, unspecified; G89.29 Other chronic pain; I10 Essential (primary) hypertension; I25.10 Atherosclerotic heart disease of native coronary artery without angina pectoris; J44.9 Chronic obstructive pulmonary disease, unspecified; K59.00 Constipation, unspecified; F12.90 Cannabis use, unspecified, uncomplicated; F15.90 Other stimulant use, unspecified, uncomplicated; R32 Unspecified urinary incontinence; Z65.3 Problems related to other legal circumstances; Z79.899 Other long term (current) drug therapy; Z80.3 Family history of malignant neoplasm of breast
CPT/HCPCS: 83036; 84439; 84443; 86592; 87081

== ENCOUNTER 2017-07-20 00:36 | Inpatient (IN) | payer MEDICARE, MEDICAID ==
[~2017-07-20] VITALS: Ht 157.5 cm; Wt 96.2 kg
[~2017-07-20 00:36] MED LIST changes: -DSS100 PO; -FLUT1BLS IH; +NALT50TA6 PO; +PARO20TA24 PO; +QUET300T18 PO
[2017-07-20] MEDS ORDERED: OLANZapine 5 MG RAPDIS TABLET PO PRN (03:00)
[2017-07-20] MEDS ORDERED: ZOLPIDEM TARTRATE 10 MG TABLET PO PRN (03:00)
[2017-07-20] MEDS ORDERED: LORazepam 1 MG TABLET PO PRN ×2 (03:00→11:00)
[2017-07-20 04:14] VITALS: BP 122/70
[2017-07-20] MEDS ORDERED: QUEtiapine FUMARATE 100 MG TABLET PO PRN (04:15)
[2017-07-20] MEDS ORDERED: PARoxetine HCL 20 MG TABLET PO SCH (09:00)
[2017-07-20] MEDS ORDERED: BuPROPion HCL XL 150 MG ER TABLET PO SCH (09:00)
[2017-07-20 09:22] VITALS: BP 105/85
[2017-07-20] MEDS ORDERED: QUET300T2 PO (09:24)
[2017-07-20] MEDS ORDERED: TRAZ-147 PO (09:24)
[2017-07-20] MEDS ORDERED: PARO20TA24 PO (09:24)
[2017-07-20] MEDS ORDERED: BUPR-93 PO (09:24)
[2017-07-20] MEDS ORDERED: NALT50TA6 PO (09:24)
[2017-07-20] MEDS ORDERED: ASPI81 PO (09:27)
[2017-07-20] MEDS ORDERED: AMLO2.5T PO (09:27)
[2017-07-20] MEDS ORDERED: ROSU10 PO (09:27)
[2017-07-20] MEDS ORDERED: OXYB5 PO (09:27)
[2017-07-20] MEDS ORDERED: ESTR-95 PO (09:27)
[2017-07-20] MEDS ORDERED: HydrOXYzine PAMOATE 50 MG CAPSULE PO PRN (13:00)
[2017-07-20] MEDS ORDERED: MAGNESIUM HYDROXIDE SUSPENSION 30 ML UDCUP PO PRN (13:00)
[2017-07-20] MEDS ORDERED: LOPERAMIDE HCL 2 MG CAPSULE PO PRN (13:00)
[2017-07-20] MEDS ORDERED: MAG HYDROX/AL HYDROX/SIMETH ES 30 ML SUSPENSION UDCUP PO PRN (13:00)
[2017-07-20] MEDS ORDERED: PROMETHAZINE HCL 25 MG TABLET PO PRN (13:00)
[2017-07-20] MEDS ORDERED: GuaiFENesin/D-METHORPHAN [SUGAR-FREE] 200-20MG/10 ML SYRUP UDCUP PO PRN (13:00)
[2017-07-20] MEDS: ACETAMINOPHEN 325 MG TABLET PO PRN (16:08)
[2017-07-20 16:09] VITALS: BP 113/63
[2017-07-20] MEDS: OXYBUTYNIN CHLORIDE 5 MG TABLET PO SCH (16:45)
[2017-07-20] MEDS: THIAMINE HCL 100 MG TABLET PO SCH (16:45)
[2017-07-20] MEDS: TraZODone HCL 100 MG TABLET PO SCH (20:41)
[2017-07-20] MEDS: ROSUVASTATIN CALCIUM 10 MG TABLET PO SCH (20:42)
[2017-07-20] MEDS ORDERED: QUEtiapine FUMARATE 300 MG TABLET PO SCH (21:00)
[2017-07-20] MEDS ORDERED: QUEtiapine FUMARATE 200 MG TABLET PO SCH (21:00)
[2017-07-21 06:55] VITALS: BP 118/72
[2017-07-21] MEDS: AmLODIPine BESYLATE 2.5 MG TABLET PO SCH (09:00)
[2017-07-21] MEDS ORDERED: PARoxetine HCL 20 MG TABLET PO SCH (09:00)
[2017-07-21 09:11] LABS: BASOPHILS % (AUTO) 0.4 % (0.0-2.0); EOSINOPHILS % (AUTO) 2.1 % (1.0-6.0); HEMATOCRIT 39.1 % (36-46); HEMOGLOBIN 13.8 g/dL (12.0-16.0); LYMPHOCYTES % (AUTO) 31.4 % (22.0-44.0); MEAN CORPUSCULAR HEMOGLOBIN 32.9 pg (26.0-34.0); MEAN CORPUSCULAR HGB CONC 35.2 G/dL (31.0-37.0); MEAN CORPUSCULAR VOLUME 94 fL (80-100); MONOCYTES # (AUTO) 0.5 K/uL (0.1-1.0); MONOCYTES % (AUTO) 7.2 % (2.0-9.0); NEUTROPHILS # (AUTO) 3.7 K/uL (1.8-7.7); NEUTROPHILS % (AUTO) 58.9 % (40.0-70.0); PLATELET COUNT (AUTO) 237 K/uL (150-450); RED BLOOD CELL COUNT(AUTO) 4.18 MIL/uL (4.00-5.20); RED CELL DISTRIBUTION WIDTH 12.9 % (11.5-14.5)
[2017-07-21] MEDS: ESTRADIOL 1 MG TABLET PO SCH (09:14)
[2017-07-21] MEDS: OXYBUTYNIN CHLORIDE 5 MG TABLET PO SCH ×3 (09:14→16:40)
[2017-07-21] MEDS: MULTIVITAMINS WITH MINERALS, THERAPEUTIC TABLET PO SCH (09:14)
[2017-07-21] MEDS: ASPIRIN 81 MG CHEWABLE TABLET PO SCH (09:14)
[2017-07-21 09:15] VITALS: BP 102/64
[2017-07-21] MEDS: FOLIC ACID 1 MG TABLET PO SCH (09:15)
[2017-07-21] MEDS: THIAMINE HCL 100 MG TABLET PO SCH ×2 (09:15→16:40)
[2017-07-21 09:40] LABS: HEMOGLOBIN A1C 5.8 % (4.5-6.2)
[2017-07-21 10:01] LABS: CHOL/HDL RATIO 4.3 (3.9-5.7); FREE T4 (FREE THYROXINE) 0.56 ng/dL (0.76-1.46); THYROID STIMULATING HORMONE 1.67 uIU/mL (0.36-3.74)
[2017-07-21] MEDS: ACETAMINOPHEN 325 MG TABLET PO PRN (16:01)
[2017-07-21] MEDS: LORazepam 2 MG TABLET PO PRN (16:01)
[2017-07-21 16:03] VITALS: BP 135/64
[2017-07-21] MEDS ORDERED: TRAZ-147 PO (16:31)
[2017-07-21] MEDS ORDERED: QUET200T29 PO (16:31)
[2017-07-21] MEDS ORDERED: PARO-37 PO (16:31)
[2017-07-21] MEDS: TraZODone HCL 100 MG TABLET PO SCH (20:32)
[2017-07-21] MEDS: ROSUVASTATIN CALCIUM 10 MG TABLET PO SCH (20:32)
[2017-07-21] MEDS: QUEtiapine FUMARATE 200 MG TABLET PO SCH (20:33)
[2017-07-22 06:09] VITALS: BP 114/62
[2017-07-22 08:37] VITALS: BP 105/62
[2017-07-22] MEDS ORDERED: BISACODYL 5 MG EC TABLET PO PRN (08:45)
[2017-07-22] MEDS: AmLODIPine BESYLATE 2.5 MG TABLET PO SCH (09:00)
[2017-07-22] MEDS: THIAMINE HCL 100 MG TABLET PO SCH ×2 (09:38→16:20)
[2017-07-22] MEDS: MULTIVITAMINS WITH MINERALS, THERAPEUTIC TABLET PO SCH (09:38)
[2017-07-22] MEDS: PARoxetine HCL 20 MG TABLET PO SCH (09:39)
[2017-07-22] MEDS: ASPIRIN 81 MG CHEWABLE TABLET PO SCH (09:39)
[2017-07-22] MEDS: FOLIC ACID 1 MG TABLET PO SCH (09:39)
[2017-07-22] MEDS: ESTRADIOL 1 MG TABLET PO SCH (09:40)
[2017-07-22] MEDS: OXYBUTYNIN CHLORIDE 5 MG TABLET PO SCH ×3 (09:40→16:20)
[2017-07-22 12:38] VITALS: BP 126/62
[2017-07-22] MEDS: LORazepam 2 MG TABLET PO PRN (12:38)
[2017-07-22] MEDS: ACETAMINOPHEN 325 MG TABLET PO PRN (12:38)
[2017-07-22 16:17] VITALS: BP 109/69
[2017-07-22] MEDS: ROSUVASTATIN CALCIUM 10 MG TABLET PO SCH (20:36)
[2017-07-22] MEDS: TraZODone HCL 100 MG TABLET PO SCH (20:36)
[2017-07-22] MEDS: QUEtiapine FUMARATE 200 MG TABLET PO SCH (20:39)
[2017-07-23 01:55] VITALS: BP 109/60
[2017-07-23 08:30] VITALS: BP 103/64
[2017-07-23] MEDS: AmLODIPine BESYLATE 2.5 MG TABLET PO SCH (09:00)
[2017-07-23] MEDS: MULTIVITAMINS WITH MINERALS, THERAPEUTIC TABLET PO SCH (09:08)
[2017-07-23] MEDS: THIAMINE HCL 100 MG TABLET PO SCH ×2 (09:08→16:37)
[2017-07-23] MEDS: FOLIC ACID 1 MG TABLET PO SCH (09:08)
[2017-07-23] MEDS: ASPIRIN 81 MG CHEWABLE TABLET PO SCH (09:09)
[2017-07-23] MEDS: ESTRADIOL 1 MG TABLET PO SCH (09:09)
[2017-07-23] MEDS: OXYBUTYNIN CHLORIDE 5 MG TABLET PO SCH ×3 (09:09→16:37)
[2017-07-23] MEDS: PARoxetine HCL 20 MG TABLET PO SCH (09:09)
[2017-07-23 13:30] VITALS: BP 124/64
[2017-07-23] MEDS: LORazepam 2 MG TABLET PO PRN (13:30)
[2017-07-23] MEDS: ACETAMINOPHEN 325 MG TABLET PO PRN (13:31)
[2017-07-23 16:13] VITALS: BP 115/73
[2017-07-23] MEDS: TraZODone HCL 100 MG TABLET PO SCH (20:43)
[2017-07-23] MEDS: QUEtiapine FUMARATE 200 MG TABLET PO SCH (20:43)
[2017-07-23] MEDS: ROSUVASTATIN CALCIUM 10 MG TABLET PO SCH (21:29)
[2017-07-24 04:00] VITALS: BP 100/60
[2017-07-24] MEDS: PARoxetine HCL 20 MG TABLET PO SCH (08:40)
[2017-07-24] MEDS: OXYBUTYNIN CHLORIDE 5 MG TABLET PO SCH ×3 (08:40→16:18)
[2017-07-24] MEDS: FOLIC ACID 1 MG TABLET PO SCH (08:40)
[2017-07-24] MEDS: THIAMINE HCL 100 MG TABLET PO SCH ×2 (08:40→16:19)
[2017-07-24] MEDS: ESTRADIOL 1 MG TABLET PO SCH (08:40)
[2017-07-24] MEDS: MULTIVITAMINS WITH MINERALS, THERAPEUTIC TABLET PO SCH (08:40)
[2017-07-24] MEDS: AmLODIPine BESYLATE 2.5 MG TABLET PO SCH ×2 (08:41→09:59)
[2017-07-24] MEDS: ASPIRIN 81 MG CHEWABLE TABLET PO SCH (08:41)
[2017-07-24 09:59] VITALS: BP 117/67
[2017-07-24] MEDS: LORazepam 2 MG TABLET PO PRN (09:59)
[2017-07-24] MEDS: ACETAMINOPHEN 325 MG TABLET PO PRN ×2 (10:00→19:13)
[2017-07-24 16:11] VITALS: BP 105/73
[2017-07-24] MEDS: QUEtiapine FUMARATE 200 MG TABLET PO SCH (20:33)
[2017-07-24] MEDS: TraZODone HCL 100 MG TABLET PO SCH (20:34)
[2017-07-24] MEDS: ROSUVASTATIN CALCIUM 10 MG TABLET PO SCH (20:34)
[2017-07-25 00:24] VITALS: BP 100/60
[2017-07-25 01:30] VITALS: BP 100/60
[2017-07-25 09:15] VITALS: BP 118/76
[2017-07-25] MEDS: ESTRADIOL 1 MG TABLET PO SCH (09:18)
[2017-07-25] MEDS: AmLODIPine BESYLATE 2.5 MG TABLET PO SCH (09:18)
[2017-07-25] MEDS: PARoxetine HCL 20 MG TABLET PO SCH (09:19)
[2017-07-25] MEDS: FOLIC ACID 1 MG TABLET PO SCH (09:19)
[2017-07-25] MEDS: MULTIVITAMINS WITH MINERALS, THERAPEUTIC TABLET PO SCH (09:19)
[2017-07-25] MEDS: THIAMINE HCL 100 MG TABLET PO SCH ×2 (09:19→16:43)
[2017-07-25] MEDS: ASPIRIN 81 MG CHEWABLE TABLET PO SCH (09:19)
[2017-07-25] MEDS: OXYBUTYNIN CHLORIDE 5 MG TABLET PO SCH ×3 (09:19→16:43)
[2017-07-25] MEDS: LORazepam 2 MG TABLET PO PRN (09:56)
[2017-07-25 16:24] VITALS: BP 103/60
[2017-07-25] MEDS ORDERED: TraMADol HCL 50 MG TABLET PO PRN (19:15)
[2017-07-25 19:35] VITALS: BP 116/71
[2017-07-25] MEDS: QUEtiapine FUMARATE 200 MG TABLET PO SCH (20:50)
[2017-07-25] MEDS: ROSUVASTATIN CALCIUM 10 MG TABLET PO SCH (20:50)
[2017-07-25] MEDS: TraZODone HCL 100 MG TABLET PO SCH (20:50)
[2017-07-26 06:22] VITALS: BP 107/63
[2017-07-26] MEDS: FOLIC ACID 1 MG TABLET PO SCH (08:27)
[2017-07-26] MEDS: THIAMINE HCL 100 MG TABLET PO SCH (08:27)
[2017-07-26] MEDS: MULTIVITAMINS WITH MINERALS, THERAPEUTIC TABLET PO SCH (08:28)
[2017-07-26] MEDS: PARoxetine HCL 20 MG TABLET PO SCH (08:28)
[2017-07-26] MEDS: ASPIRIN 81 MG CHEWABLE TABLET PO SCH (08:28)
[2017-07-26] MEDS: OXYBUTYNIN CHLORIDE 5 MG TABLET PO SCH ×2 (08:28→12:57)
[2017-07-26] MEDS: ESTRADIOL 1 MG TABLET PO SCH (08:28)
[2017-07-26] MEDS: AmLODIPine BESYLATE 2.5 MG TABLET PO SCH (08:33)
[2017-07-26 08:35] VITALS: BP 103/66
== END 2017-07-26 14:58 | disposition home or self-care (01) | DRG 885 ==
LOC: B2X 03:15 → EDSTATUS 03:29
PROVIDERS: ADMIT Psychiatry & Neurology Psychiatry; ATTEND Psychiatry & Neurology Psychiatry
DX: F25.9 Schizoaffective disorder, unspecified (principal); Z91.19 Patient's noncompliance with other medical treatment and regimen; E55.9 Vitamin D deficiency, unspecified; E78.5 Hyperlipidemia, unspecified; I10 Essential (primary) hypertension; J44.9 Chronic obstructive pulmonary disease, unspecified; K21.9 Gastro-esophageal reflux disease without esophagitis; F32.9 Major depressive disorder, single episode, unspecified; G89.4 Chronic pain syndrome; I25.10 Atherosclerotic heart disease of native coronary artery without angina pectoris; K59.00 Constipation, unspecified; R32 Unspecified urinary incontinence; F12.90 Cannabis use, unspecified, uncomplicated; F17.210 Nicotine dependence, cigarettes, uncomplicated; Z80.3 Family history of malignant neoplasm of breast; Z79.82 Long term (current) use of aspirin; Z79.899 Other long term (current) drug therapy
CPT/HCPCS: 83036; 84436; 84439; 84443; 86592; 87081

== ENCOUNTER 2017-08-26 16:01 | Emergency (ER) | payer MEDICARE, MEDICAID ==
[~2017-08-26] VITALS: Ht 157.5 cm; Wt 96.4 kg
[~2017-08-26 16:01] MED LIST changes: -ASPI-1182 PO; +ASPI81 PO; -BUPR-47 PO; -NALT50TA PO; -NALT50TA6 PO; +QUET200T29 PO; -QUET300T18 PO; -TRAZ-147 PO; +TRAZ-220 PO
[2017-08-26 17:16] VITALS: BP 115/68
[2017-08-26] MEDS ORDERED: PB/HYOSCY/ATR/SCOP/LIDO/MAALOX 55 ML BOTTLE PO ONE (18:00)
== END 2017-08-26 18:20 | disposition home or self-care (01) ==
LOC: EMS 16:06
DX: K21.9 Gastro-esophageal reflux disease without esophagitis (principal); R12 Heartburn; I20.9 Angina pectoris, unspecified; J44.9 Chronic obstructive pulmonary disease, unspecified; F17.210 Nicotine dependence, cigarettes, uncomplicated
CPT/HCPCS: 93005; 99283

== ENCOUNTER 2017-10-19 15:56 | Inpatient (IN) | payer MEDICARE, MEDICAID ==
[~2017-10-19] VITALS: Ht 157.5 cm; Wt 97.7 kg
[~2017-10-19 15:56] MED LIST changes: -AMLO2.5T PO; +AMLO2.5T3 PO
[2017-10-19] MEDS ORDERED: CYANOCOBALAMIN 1,000 MCG/ML VIAL IM ONE (16:15)
[2017-10-19] MEDS ORDERED: ZOLPIDEM TARTRATE 10 MG TABLET PO PRN (16:15)
[2017-10-19] MEDS ORDERED: ACETAMINOPHEN 325 MG TABLET PO PRN (16:15)
[2017-10-19] MEDS ORDERED: MAGNESIUM HYDROXIDE SUSPENSION 30 ML UDCUP PO PRN (16:15)
[2017-10-19] MEDS ORDERED: QUEtiapine FUMARATE 100 MG TABLET PO PRN (16:15)
[2017-10-19] MEDS ORDERED: LOPERAMIDE HCL 2 MG CAPSULE PO PRN (16:15)
[2017-10-19] MEDS ORDERED: MAG HYDROX/AL HYDROX/SIMETH ES 30 ML SUSPENSION UDCUP PO PRN (16:15)
[2017-10-19] MEDS ORDERED: PROMETHAZINE HCL 25 MG TABLET PO PRN (16:15)
[2017-10-19] MEDS ORDERED: HydrOXYzine PAMOATE 50 MG CAPSULE PO PRN (16:15)
[2017-10-19] MEDS ORDERED: GuaiFENesin/D-METHORPHAN [SUGAR-FREE] 200-20MG/10 ML SYRUP UDCUP PO PRN (16:15)
[2017-10-19 16:48] VITALS: BP 116/67
[2017-10-19 17:34] VITALS: BP 128/90
[2017-10-19] MEDS: LORazepam 2 MG TABLET PO PRN (19:18)
[2017-10-19] MEDS: THIAMINE HCL 100 MG TABLET PO SCH (19:18)
[2017-10-19] MEDS ORDERED: QUEtiapine FUMARATE 200 MG TABLET PO SCH (21:00)
[2017-10-19] MEDS: TraZODone HCL 100 MG TABLET PO SCH (21:39)
[2017-10-19] MEDS: ROSUVASTATIN CALCIUM 10 MG TABLET PO SCH (21:39)
[2017-10-20 06:44] VITALS: BP 121/77
[2017-10-20 08:49] VITALS: BP 106/71
[2017-10-20 08:57] LABS: BASOPHILS % (AUTO) 0.6 % (0.0-2.0); EOSINOPHILS % (AUTO) 3.4 % (1.0-6.0); HEMATOCRIT 43.2 % (36-46); HEMOGLOBIN 14.8 g/dL (12.0-16.0); LYMPHOCYTES # (AUTO) 1.8 K/uL (1.0-4.8); LYMPHOCYTES % (AUTO) 28.7 % (22.0-44.0); MEAN CORPUSCULAR HEMOGLOBIN 32.7 pg (26.0-34.0); MEAN CORPUSCULAR HGB CONC 34.2 G/dL (31.0-37.0); MEAN CORPUSCULAR VOLUME 96 fL (80-100); MONOCYTES # (AUTO) 0.4 K/uL (0.1-1.0); MONOCYTES % (AUTO) 5.9 % (2.0-9.0); NEUTROPHILS # (AUTO) 3.9 K/uL (1.8-7.7); NEUTROPHILS % (AUTO) 61.4 % (40.0-70.0); PLATELET COUNT (AUTO) 203 K/uL (150-450); RED BLOOD CELL COUNT(AUTO) 4.51 MIL/uL (4.00-5.20); RED CELL DISTRIBUTION WIDTH 12.7 % (11.5-14.5)
[2017-10-20 09:05] VITALS: BP 118/75
[2017-10-20] MEDS: MULTIVITAMINS WITH MINERALS, THERAPEUTIC TABLET PO SCH (09:05)
[2017-10-20] MEDS: PARoxetine HCL 20 MG TABLET PO SCH (09:06)
[2017-10-20] MEDS: NALTREXONE HCL 50 MG TABLET PO SCH (09:06)
[2017-10-20] MEDS: NICOTINE 14 MG/24 HOUR PATCH TD SCH (09:06)
[2017-10-20] MEDS: AmLODIPine BESYLATE 2.5 MG TABLET PO SCH (09:06)
[2017-10-20] MEDS: ASPIRIN 81 MG CHEWABLE TABLET PO SCH (09:06)
[2017-10-20] MEDS: ESTRADIOL 1 MG TABLET PO SCH (09:06)
[2017-10-20] MEDS: THIAMINE HCL 100 MG TABLET PO SCH ×2 (09:06→16:33)
[2017-10-20] MEDS: FOLIC ACID 1 MG TABLET PO SCH (09:06)
[2017-10-20] MEDS: OXYBUTYNIN CHLORIDE 5 MG TABLET PO SCH ×3 (09:06→16:33)
[2017-10-20 09:23] LABS: ALBUMIN 3.6 g/dL (3.4-5.0); BILIRUBIN,TOTAL 0.3 mg/dL (0.1-1.0); CALCIUM, TOTAL 8.9 mg/dL (8.8-10.5); CHOL/HDL RATIO 3.9 (3.9-5.7); CREATININE 0.98 mg/dL (0.60-1.30); TOTAL PROTEIN, SERUM 7.2 g/dL (6.4-8.2)
[2017-10-20 09:28] LABS: HEMOGLOBIN A1C 5.6 % (4.5-6.2)
[2017-10-20] MEDS ORDERED: PALIPERIDONE PALMITATE 234 MG/1.5 ML SYRINGE IM ONE (11:45)
[2017-10-20] MEDS ORDERED: PALIPERIDONE 3 MG ER TABLET PO PRN (11:45)
[2017-10-20] MEDS: LORazepam 2 MG TABLET PO PRN (13:09)
[2017-10-20 16:31] VITALS: BP 117/70
[2017-10-20] MEDS: ROSUVASTATIN CALCIUM 10 MG TABLET PO SCH (20:41)
[2017-10-20] MEDS: TraZODone HCL 100 MG TABLET PO SCH (20:42)
[2017-10-20] MEDS ORDERED: PALIPERIDONE 3 MG ER TABLET PO SCH (21:00)
[2017-10-21 06:20] VITALS: BP 127/84
[2017-10-21 08:53] VITALS: BP 111/60
[2017-10-21 08:56] LABS: AMPHET/METH SCREEN,URINE NEGATIVE (NEGATIVE); BARBITURATE SCREEN, URINE NEGATIVE (NEGATIVE); BENZODIAZEPINES SCREEN,URINE NEGATIVE (NEGATIVE); CANNABINOID SCREEN,URINE NEGATIVE (NEGATIVE); COCAINE SCREEN,URINE NEGATIVE (NEGATIVE); METHADONE SCREEN, URINE NEGATIVE (NEGATIVE); OPIATE SCREEN,URINE NEGATIVE (NEGATIVE)
[2017-10-21 08:57] LABS: APPEARANCE,URINE TURBID (CLEAR); BILIRUBIN,URINE NEGATIVE (NEGATIVE); GLUCOSE, URINE (UA) NEGATIVE (NEGATIVE); KETONES,URINE NEGATIVE (NEGATIVE); LEUKOCYTE ESTERASE ,URINE NEGATIVE (NEGATIVE); NITRATE,URINE NEGATIVE (NEGATIVE); OCCULT BLOOD,URINE NEGATIVE (NEGATIVE); PHENCYCLIDINE SCREEN,URINE NEGATIVE (NEGATIVE); PROTEIN,URINE NEGATIVE (NEGATIVE); UROBILINOGEN,URINE 0.2 mg/dL (<=1.0)
[2017-10-21 09:10] LABS: AMORPHOUS SEDIMENT,UR Many /LPF (None Seen); BACTERIA,URINE None Seen /HPF (None Seen); RBC,URINE None Seen /HPF (0-2); SQUAMOUS EPITHELIAL CELL,UR Few /LPF (None Seen); WBC,URINE None Seen /HPF (0-5)
[2017-10-21] MEDS: PARoxetine HCL 20 MG TABLET PO SCH (09:24)
[2017-10-21] MEDS: THIAMINE HCL 100 MG TABLET PO SCH ×2 (09:24→16:46)
[2017-10-21] MEDS: AmLODIPine BESYLATE 2.5 MG TABLET PO SCH (09:24)
[2017-10-21] MEDS: ESTRADIOL 1 MG TABLET PO SCH (09:24)
[2017-10-21] MEDS: OXYBUTYNIN CHLORIDE 5 MG TABLET PO SCH ×3 (09:24→16:46)
[2017-10-21] MEDS: LORazepam 2 MG TABLET PO PRN (09:24)
[2017-10-21] MEDS: MULTIVITAMINS WITH MINERALS, THERAPEUTIC TABLET PO SCH (09:24)
[2017-10-21] MEDS: NALTREXONE HCL 50 MG TABLET PO SCH (09:24)
[2017-10-21] MEDS: FOLIC ACID 1 MG TABLET PO SCH (09:24)
[2017-10-21] MEDS: ASPIRIN 81 MG CHEWABLE TABLET PO SCH (09:25)
[2017-10-21] MEDS: NICOTINE 14 MG/24 HOUR PATCH TD SCH (09:25)
[2017-10-21] MEDS ORDERED: TRAZ-220 PO (14:35)
[2017-10-21] MEDS ORDERED: NALT50TA PO (14:35)
[2017-10-21] MEDS ORDERED: PARO-37 PO (14:35)
[2017-10-21] MEDS ORDERED: PALI156D IM (14:35)
[2017-10-21 17:40] VITALS: BP 106/66
[2017-10-24] MEDS ORDERED: PALIPERIDONE PALMITATE 156 MG/ML SYRINGE IM ONE (09:00)
== END 2017-10-21 17:30 | disposition home or self-care (01) | DRG 885 ==
LOC: B2X 17:32
PROVIDERS: ADMIT Psychiatry & Neurology Psychiatry; ATTEND Psychiatry & Neurology Psychiatry
DX: F25.9 Schizoaffective disorder, unspecified (principal); E78.5 Hyperlipidemia, unspecified; I10 Essential (primary) hypertension; J44.9 Chronic obstructive pulmonary disease, unspecified; I25.10 Atherosclerotic heart disease of native coronary artery without angina pectoris; R32 Unspecified urinary incontinence; F15.90 Other stimulant use, unspecified, uncomplicated; K59.00 Constipation, unspecified; Z91.19 Patient's noncompliance with other medical treatment and regimen; Z91.14 Patient's other noncompliance with medication regimen
CPT/HCPCS: 80307; 83036; 86592; 87081; J3420

== ENCOUNTER 2017-11-01 12:14 | Inpatient (IN) | payer MEDICARE, MEDICAID ==
[~2017-11-01] VITALS: Ht 157.5 cm; Wt 97.5 kg
[~2017-11-01 12:14] MED LIST changes: +PALI156D IM; -PARO20TA24 PO; -QUET200T29 PO; -QUET300T2 PO
[2017-11-01 13:07] LABS: BASOPHILS % (AUTO) 1.1 % (0.0-2.0); EOSINOPHILS % (AUTO) 0.4 % (1.0-6.0); HEMATOCRIT 42.6 % (36-46); HEMOGLOBIN 14.7 g/dL (12.0-16.0); LYMPHOCYTES # (AUTO) 3.1 K/uL (1.0-4.8); LYMPHOCYTES % (AUTO) 31.4 % (22.0-44.0); MEAN CORPUSCULAR HEMOGLOBIN 32.7 pg (26.0-34.0); MEAN CORPUSCULAR HGB CONC 34.5 G/dL (31.0-37.0); MEAN CORPUSCULAR VOLUME 95 fL (80-100); MONOCYTES # (AUTO) 0.6 K/uL (0.1-1.0); MONOCYTES % (AUTO) 6.1 % (2.0-9.0); NEUTROPHILS # (AUTO) 5.9 K/uL (1.8-7.7); PLATELET COUNT (AUTO) 258 K/uL (150-450); RED CELL DISTRIBUTION WIDTH 12.8 % (11.5-14.5)
[2017-11-01 13:18] LABS: ANION GAP 11 mmol/L (8-16); CARBON DIOXIDE 24 mmol/L (22-29); CHLORIDE 105 mmol/L (98-107); CREATININE 0.81 mg/dL (0.60-1.30); GLOMERULAR FILTR. RATE CALC > 60 mL/min (>60); GLUCOSE,RANDOM 125 mg/dL (70-110); POTASSIUM 4.1 mmol/L (3.5-5.1); SODIUM SERUM 140 mmol/L (136-145); UREA NITROGEN, BLOOD 16 mg/dL (7-18)
[2017-11-01 13:24] LABS: ALANINE AMINOTRANSFERASE 28 U/L (12-78); ALBUMIN 3.7 g/dL (3.4-5.0); ALKALINE PHOSPHATASE 79 U/L (46-116); ASPARTATE AMINOTRANSFERASE 31 U/L (15-37); BILIRUBIN,TOTAL 0.4 mg/dL (0.1-1.0); TOTAL PROTEIN, SERUM 7.3 g/dL (6.4-8.2)
[2017-11-01 16:07] LABS: AMPHET/METH SCREEN,URINE NEGATIVE (NEGATIVE); BARBITURATE SCREEN, URINE NEGATIVE (NEGATIVE); BENZODIAZEPINES SCREEN,URINE NEGATIVE (NEGATIVE); CANNABINOID SCREEN,URINE NEGATIVE (NEGATIVE); COCAINE SCREEN,URINE NEGATIVE (NEGATIVE); METHADONE SCREEN, URINE NEGATIVE (NEGATIVE); OPIATE SCREEN,URINE POSITIVE (NEGATIVE)
[2017-11-01 16:09] LABS: PHENCYCLIDINE SCREEN,URINE NEGATIVE (NEGATIVE)
[2017-11-01] MEDS ORDERED: HALOPERIDOL 5 MG TABLET PO ONE (16:45)
[2017-11-01] MEDS ORDERED: LORazepam 1 MG TABLET PO ONE ×2 (16:45→17:15)
[2017-11-01] MEDS ORDERED: GuaiFENesin/D-METHORPHAN [SUGAR-FREE] 200-20MG/10 ML SYRUP UDCUP PO PRN (18:15)
[2017-11-01] MEDS ORDERED: ZOLPIDEM TARTRATE 10 MG TABLET PO PRN (18:15)
[2017-11-01] MEDS ORDERED: PALIPERIDONE 3 MG ER TABLET PO PRN (18:15)
[2017-11-01] MEDS ORDERED: LORazepam 2 MG TABLET PO PRN (18:15)
[2017-11-01] MEDS ORDERED: MAGNESIUM HYDROXIDE SUSPENSION 30 ML UDCUP PO PRN (18:15)
[2017-11-01] MEDS ORDERED: HydrOXYzine PAMOATE 50 MG CAPSULE PO PRN (18:15)
[2017-11-01] MEDS ORDERED: MAG HYDROX/AL HYDROX/SIMETH ES 30 ML SUSPENSION UDCUP PO PRN (18:15)
[2017-11-01] MEDS ORDERED: LOPERAMIDE HCL 2 MG CAPSULE PO PRN (18:15)
[2017-11-01] MEDS ORDERED: ACETAMINOPHEN 325 MG TABLET PO PRN (18:15)
[2017-11-01] MEDS ORDERED: PROMETHAZINE HCL 25 MG TABLET PO PRN (18:15)
[2017-11-01] MEDS: PALIPERIDONE 3 MG ER TABLET PO SCH (21:12)
[2017-11-01] MEDS: TraZODone HCL 100 MG TABLET PO SCH (21:12)
[2017-11-01] MEDS: THIAMINE HCL 100 MG TABLET PO SCH (21:12)
[2017-11-01] MEDS: ACAMPROSATE CALCIUM 333 MG DR TABLET PO SCH (21:12)
[2017-11-01 21:18] VITALS: BP 129/81
[2017-11-01] MEDS ORDERED: -PHARMACY VACCINE NOTE- MISC ONE (22:00)
[2017-11-02 07:04] VITALS: BP 111/73
[2017-11-02 08:19] VITALS: BP 117/69
[2017-11-02] MEDS: ESTRADIOL 1 MG TABLET PO SCH (08:44)
[2017-11-02] MEDS: ASPIRIN 81 MG CHEWABLE TABLET PO SCH (08:44)
[2017-11-02] MEDS: AmLODIPine BESYLATE 2.5 MG TABLET PO SCH (08:44)
[2017-11-02] MEDS: MULTIVITAMINS WITH MINERALS, THERAPEUTIC TABLET PO SCH (08:44)
[2017-11-02] MEDS: THIAMINE HCL 100 MG TABLET PO SCH ×2 (08:44→16:38)
[2017-11-02] MEDS: ACAMPROSATE CALCIUM 333 MG DR TABLET PO SCH ×3 (08:45→16:38)
[2017-11-02] MEDS: FOLIC ACID 1 MG TABLET PO SCH (08:45)
[2017-11-02] MEDS: PARoxetine HCL 20 MG TABLET PO SCH (08:45)
[2017-11-02] MEDS: OXYBUTYNIN CHLORIDE 5 MG TABLET PO SCH ×3 (08:45→16:37)
[2017-11-02] MEDS ORDERED: OXYBUTYNIN CHLORIDE 5 MG TABLET PO SCH (13:00)
[2017-11-02] MEDS ORDERED: MAGNESIUM HYDROXIDE SUSPENSION 30 ML UDCUP PO ONE (15:30)
[2017-11-02] MEDS ORDERED: LACTULOSE 20 GM/30 ML SOLUTION UDCUP PO PRN (15:45)
[2017-11-02] MEDS ORDERED: BISACODYL 5 MG EC TABLET PO PRN (15:45)
[2017-11-02 16:18] VITALS: BP 110/74
[2017-11-02] MEDS: TRIHEXYPHENIDYL HCL 5 MG TABLET PO SCH (16:38)
[2017-11-02] MEDS: DOCUSATE SODIUM 100 MG CAPSULE PO SCH (16:39)
[2017-11-02] MEDS: PALIPERIDONE 3 MG ER TABLET PO SCH (20:37)
[2017-11-02] MEDS: TraZODone HCL 100 MG TABLET PO SCH (20:37)
[2017-11-02] MEDS ORDERED: ROSUVASTATIN CALCIUM 10 MG TABLET PO SCH ×2 (21:00)
[2017-11-03 00:38] VITALS: BP 124/67
[2017-11-03 01:43] VITALS: BP 131/86
[2017-11-03] MEDS: ESTRADIOL 1 MG TABLET PO SCH (08:11)
[2017-11-03] MEDS: TRIHEXYPHENIDYL HCL 5 MG TABLET PO SCH (08:11)
[2017-11-03] MEDS: MULTIVITAMINS WITH MINERALS, THERAPEUTIC TABLET PO SCH (08:11)
[2017-11-03] MEDS: ASPIRIN 81 MG CHEWABLE TABLET PO SCH (08:11)
[2017-11-03] MEDS: ACAMPROSATE CALCIUM 333 MG DR TABLET PO SCH (08:11)
[2017-11-03] MEDS: THIAMINE HCL 100 MG TABLET PO SCH (08:11)
[2017-11-03] MEDS: FOLIC ACID 1 MG TABLET PO SCH (08:11)
[2017-11-03] MEDS: AmLODIPine BESYLATE 2.5 MG TABLET PO SCH (08:11)
[2017-11-03] MEDS: DOCUSATE SODIUM 100 MG CAPSULE PO SCH (08:12)
[2017-11-03] MEDS: PARoxetine HCL 20 MG TABLET PO SCH (08:12)
[2017-11-03] MEDS: OXYBUTYNIN CHLORIDE 5 MG TABLET PO SCH (08:12)
[2017-11-03 08:19] VITALS: BP 122/63
[2017-11-03] MEDS ORDERED: AmLODIPine BESYLATE 2.5 MG TABLET PO SCH (09:00)
[2017-11-03] MEDS ORDERED: ASPIRIN 81 MG CHEWABLE TABLET PO SCH (09:00)
[2017-11-03] MEDS ORDERED: ESTRADIOL 1 MG TABLET PO SCH (09:00)
[2017-11-03] MEDS ORDERED: DSS100 PO (10:03)
[2017-11-03] MEDS ORDERED: FOLI1 PO (10:03)
[2017-11-03] MEDS ORDERED: MULT-1239 PO (10:03)
[2017-11-03] MEDS ORDERED: THIA100T67 PO (10:03)
== END 2017-11-03 10:45 | disposition home or self-care (01) | DRG 885 ==
LOC: EMS 12:15 → B2X 18:19
PROVIDERS: ADMIT Psychiatry & Neurology Psychiatry; ATTEND Psychiatry & Neurology Psychiatry
DX: F25.9 Schizoaffective disorder, unspecified (principal); R45.851 Suicidal ideations; E66.9 Obesity, unspecified; Z68.39 Body mass index [BMI] 39.0-39.9, adult; F17.210 Nicotine dependence, cigarettes, uncomplicated; F12.90 Cannabis use, unspecified, uncomplicated; F32.9 Major depressive disorder, single episode, unspecified; G43.909 Migraine, unspecified, not intractable, without status migrainosus; E78.5 Hyperlipidemia, unspecified; G89.4 Chronic pain syndrome; I10 Essential (primary) hypertension; M19.90 Unspecified osteoarthritis, unspecified site; I25.10 Atherosclerotic heart disease of native coronary artery without angina pectoris; K59.00 Constipation, unspecified; J44.9 Chronic obstructive pulmonary disease, unspecified; R32 Unspecified urinary incontinence; Z65.3 Problems related to other legal circumstances; Z80.3 Family history of malignant neoplasm of breast; Z91.19 Patient's noncompliance with other medical treatment and regimen; Z79.899 Other long term (current) drug therapy
CPT/HCPCS: 87081; 99285; G0480

== ENCOUNTER 2017-11-12 13:18 | Emergency (ER) | payer MEDICARE, MEDICAID ==
[~2017-11-12] VITALS: Ht 157.5 cm; Wt 96.4 kg
[~2017-11-12 13:18] MED LIST changes: +DSS100 PO; +FOLI1 PO; +MULT-1239 PO; -PALI156D IM; -PARO-37 PO; +THIA100T67 PO; -TRAZ-220 PO
[2017-11-12 14:11] LABS: BASOPHILS % (AUTO) 0.4 % (0.0-2.0); EOSINOPHILS % (AUTO) 3.6 % (1.0-6.0); HEMATOCRIT 40.8 % (36-46); HEMOGLOBIN 14.1 g/dL (12.0-16.0); LYMPHOCYTES # (AUTO) 2.4 K/uL (1.0-4.8); LYMPHOCYTES % (AUTO) 34.3 % (22.0-44.0); MEAN CORPUSCULAR HEMOGLOBIN 32.8 pg (26.0-34.0); MEAN CORPUSCULAR HGB CONC 34.7 G/dL (31.0-37.0); MEAN CORPUSCULAR VOLUME 95 fL (80-100); MONOCYTES # (AUTO) 0.4 K/uL (0.1-1.0); MONOCYTES % (AUTO) 6.2 % (2.0-9.0); NEUTROPHILS # (AUTO) 3.8 K/uL (1.8-7.7); NEUTROPHILS % (AUTO) 55.5 % (40.0-70.0); PLATELET COUNT (AUTO) 264 K/uL (150-450); RED BLOOD CELL COUNT(AUTO) 4.31 MIL/uL (4.00-5.20); RED CELL DISTRIBUTION WIDTH 12.7 % (11.5-14.5)
[2017-11-12 14:27] LABS: ANION GAP 7 mmol/L (8-16); CALCIUM, TOTAL 9.3 mg/dL (8.8-10.5); CARBON DIOXIDE 31 mmol/L (22-29); CHLORIDE 104 mmol/L (98-107); CREATININE 0.95 mg/dL (0.60-1.30); GLOMERULAR FILTR. RATE CALC > 60 mL/min (>60); GLUCOSE,RANDOM 102 mg/dL (70-110); SODIUM SERUM 142 mmol/L (136-145); UREA NITROGEN, BLOOD 17 mg/dL (7-18)
[2017-11-12 14:38] LABS: ALANINE AMINOTRANSFERASE 26 U/L (12-78); ALBUMIN 3.4 g/dL (3.4-5.0); ALKALINE PHOSPHATASE 85 U/L (46-116); ASPARTATE AMINOTRANSFERASE 17 U/L (15-37); BILIRUBIN,TOTAL 0.2 mg/dL (0.1-1.0); TOTAL PROTEIN, SERUM 6.6 g/dL (6.4-8.2)
[2017-11-12 16:46] VITALS: BP 111/75
== END 2017-11-12 17:04 | disposition home or self-care (01) ==
LOC: EMS 13:20
DX: F20.9 Schizophrenia, unspecified (principal); F43.9 Reaction to severe stress, unspecified; F31.9 Bipolar disorder, unspecified; I20.9 Angina pectoris, unspecified; F11.20 Opioid dependence, uncomplicated; M19.90 Unspecified osteoarthritis, unspecified site; J44.9 Chronic obstructive pulmonary disease, unspecified; F17.210 Nicotine dependence, cigarettes, uncomplicated; Z79.82 Long term (current) use of aspirin
CPT/HCPCS: 36415; 80053; 85025; 99284; G0480

== ENCOUNTER 2017-12-25 10:56 | Emergency (ER) | payer MEDICARE, MEDICAID ==
[~2017-12-25] VITALS: Ht 157.5 cm; Wt 96.4 kg
[2017-12-25] MEDS ORDERED: PALI78DI IM (11:32)
[2017-12-25] MEDS ORDERED: HYDR-4455 PO (11:32)
[2017-12-25] MEDS ORDERED: QUET100T PO (11:32)
[2017-12-25] MEDS ORDERED: SUMA25TA9 PO (11:32)
[2017-12-25 14:12] VITALS: BP 128/53
[2017-12-25] MEDS ORDERED: SUMAtriptan SUCCINATE 25 MG TABLET PO ONE (14:15)
== END 2017-12-25 15:27 | disposition home or self-care (01) ==
LOC: EMS 10:58
DX: G43.909 Migraine, unspecified, not intractable, without status migrainosus (principal); F20.9 Schizophrenia, unspecified; F31.9 Bipolar disorder, unspecified; J44.9 Chronic obstructive pulmonary disease, unspecified; F17.210 Nicotine dependence, cigarettes, uncomplicated; Z79.82 Long term (current) use of aspirin; Z79.891 Long term (current) use of opiate analgesic; Z79.899 Other long term (current) drug therapy

== ENCOUNTER 2018-01-16 19:50 | Emergency (ER) | payer MEDICARE, MEDICAID ==
[~2018-01-16] VITALS: Ht 157.5 cm; Wt 99.5 kg
[~2018-01-16 19:50] MED LIST changes: -DSS100 PO; -FOLI1 PO; +HYDR-4455 PO; -MULT-1239 PO; +PALI78DI IM; +QUET100T PO; +SUMA25TA9 PO; -THIA100T67 PO
[2018-01-16 20:18] LABS: BASOPHILS % (AUTO) 0.6 % (0.0-2.0); EOSINOPHILS % (AUTO) 5.5 % (1.0-6.0); HEMATOCRIT 38.7 % (36-46); HEMOGLOBIN 13.5 g/dL (12.0-16.0); LYMPHOCYTES # (AUTO) 2.5 K/uL (1.0-4.8); LYMPHOCYTES % (AUTO) 35.4 % (22.0-44.0); MEAN CORPUSCULAR HEMOGLOBIN 32.2 pg (26.0-34.0); MEAN CORPUSCULAR HGB CONC 34.9 G/dL (31.0-37.0); MEAN CORPUSCULAR VOLUME 92 fL (80-100); MONOCYTES # (AUTO) 0.5 K/uL (0.1-1.0); MONOCYTES % (AUTO) 6.8 % (2.0-9.0); NEUTROPHILS # (AUTO) 3.7 K/uL (1.8-7.7); NEUTROPHILS % (AUTO) 51.7 % (40.0-70.0); PLATELET COUNT (AUTO) 233 K/uL (150-450); RED CELL DISTRIBUTION WIDTH 12.5 % (11.5-14.5)
[2018-01-16 20:28] LABS: ANION GAP 5 mmol/L (8-16); CARBON DIOXIDE 30 mmol/L (22-29); CHLORIDE 105 mmol/L (98-107); CREATININE 1.11 mg/dL (0.60-1.30); GLOMERULAR FILTR. RATE CALC 51 mL/min (>60); GLUCOSE,RANDOM 125 mg/dL (70-110); POTASSIUM 3.7 mmol/L (3.5-5.1); SODIUM SERUM 140 mmol/L (136-145); UREA NITROGEN, BLOOD 17 mg/dL (7-18)
[2018-01-16 20:33] LABS: ALANINE AMINOTRANSFERASE 25 U/L (12-78); ALBUMIN 3.3 g/dL (3.4-5.0); ALKALINE PHOSPHATASE 82 U/L (46-116); ASPARTATE AMINOTRANSFERASE 18 U/L (15-37); BILIRUBIN,TOTAL 0.2 mg/dL (0.1-1.0); TOTAL PROTEIN, SERUM 6.5 g/dL (6.4-8.2)
[2018-01-17 04:21] VITALS: BP 100/58
== END 2018-01-17 04:59 | disposition home or self-care (01) ==
LOC: EMS 19:52
DX: F31.9 Bipolar disorder, unspecified (principal); M19.90 Unspecified osteoarthritis, unspecified site; J44.9 Chronic obstructive pulmonary disease, unspecified; F32.9 Major depressive disorder, single episode, unspecified; G43.909 Migraine, unspecified, not intractable, without status migrainosus; F20.9 Schizophrenia, unspecified; F17.210 Nicotine dependence, cigarettes, uncomplicated; Z79.82 Long term (current) use of aspirin
CPT/HCPCS: 36415; 80053; 85025; 99285; 99406; G0480

== ENCOUNTER → 2018-03-10 | Outpatient (CLI) | payer MEDICARE, MEDICAID ==
[~2018-03-10] MED LIST changes: -AMLO2.5T3 PO; +AMLO2.5T4 PO
[2018-03-31 19:37] LABS: HEMOGLOBIN A1C 5.6 % (4.5-6.2)
[2018-03-31 19:38] LABS: CHOL/HDL RATIO 3.9 (3.9-5.7)
== END | disposition home or self-care (01) ==
LOC: LABMN 15:38
PROVIDERS: ATTEND Psychiatry & Neurology Psychiatry
DX: F25.9 Schizoaffective disorder, unspecified (principal); E11.9 Type 2 diabetes mellitus without complications
CPT/HCPCS: 83036

== ENCOUNTER 2018-03-15 16:49 | Emergency (ER) | payer MEDICARE, MEDICAID ==
[~2018-03-15] VITALS: Ht 157.5 cm; Wt 97.7 kg
[2018-03-15] MEDS ORDERED: MECLIZINE HCL 25 MG TABLET PO ONE (18:45)
[2018-03-15] MEDS ORDERED: IBUPROFEN 600 MG TABLET PO ONE (18:45)
[2018-03-15 19:17] LABS: RED BLOOD CELL COUNT(AUTO) 4.54 MIL/uL (4.00-5.20)
[2018-03-15 19:18] LABS: EOSINOPHILS % (AUTO) 4.2 % (1.0-6.0); HEMATOCRIT 41.8 % (36-46); HEMOGLOBIN 14.6 g/dL (12.0-16.0); LYMPHOCYTES # (AUTO) 2.5 K/uL (1.0-4.8); LYMPHOCYTES % (AUTO) 32.7 % (22.0-44.0); MEAN CORPUSCULAR HEMOGLOBIN 32.3 pg (26.0-34.0); MEAN CORPUSCULAR VOLUME 92 fL (80-100); MONOCYTES # (AUTO) 0.5 K/uL (0.1-1.0); MONOCYTES % (AUTO) 6.9 % (2.0-9.0); NEUTROPHILS # (AUTO) 4.2 K/uL (1.8-7.7); NEUTROPHILS % (AUTO) 55.2 % (40.0-70.0); PLATELET COUNT (AUTO) 233 K/uL (150-450); RED CELL DISTRIBUTION WIDTH 12.8 % (11.5-14.5)
[2018-03-15 19:24] LABS: ANION GAP 7 mmol/L (8-16); CALCIUM, TOTAL 9.1 mg/dL (8.8-10.5); CARBON DIOXIDE 31 mmol/L (22-29); CHLORIDE 102 mmol/L (98-107); CREATININE 0.91 mg/dL (0.60-1.30); GLOMERULAR FILTR. RATE CALC > 60 mL/min (>60); GLUCOSE,RANDOM 102 mg/dL (70-110); POTASSIUM 4.7 mmol/L (3.5-5.1); SODIUM SERUM 140 mmol/L (136-145); UREA NITROGEN, BLOOD 13 mg/dL (7-18)
[2018-03-15 19:36] LABS: B-TYPE NATRIURETIC PEPTIDE < 5 pg/mL (0-100)
[2018-03-15 19:47] LABS: APPEARANCE,URINE CLEAR (CLEAR); BILIRUBIN,URINE NEGATIVE (NEGATIVE); GLUCOSE, URINE (UA) NEGATIVE (NEGATIVE); KETONES,URINE NEGATIVE (NEGATIVE); LEUKOCYTE ESTERASE ,URINE NEGATIVE (NEGATIVE); NITRATE,URINE NEGATIVE (NEGATIVE); OCCULT BLOOD,URINE NEGATIVE (NEGATIVE); PROTEIN,URINE NEGATIVE (NEGATIVE); UROBILINOGEN,URINE 0.2 mg/dL (<=1.0)
[2018-03-15 19:49] LABS: ALANINE AMINOTRANSFERASE 28 U/L (12-78); ALBUMIN 3.7 g/dL (3.4-5.0); ALKALINE PHOSPHATASE 78 U/L (46-116); ASPARTATE AMINOTRANSFERASE 38 U/L (15-37); BILIRUBIN,TOTAL 0.4 mg/dL (0.1-1.0); CREATINE KINASE, TOTAL ONLY 162 U/L (26-192); TOTAL PROTEIN, SERUM 7.4 g/dL (6.4-8.2)
[2018-03-15] MEDS ORDERED: SODIUM CHLORIDE 0.9% 1,000 ML IV ONE (20:00)
[2018-03-15 22:16] VITALS: BP 126/68
== END 2018-03-15 22:20 | disposition home or self-care (01) ==
LOC: EMS 16:51
DX: R42 Dizziness and giddiness (principal); R11.0 Nausea; J44.9 Chronic obstructive pulmonary disease, unspecified; G43.909 Migraine, unspecified, not intractable, without status migrainosus; F20.9 Schizophrenia, unspecified; F31.9 Bipolar disorder, unspecified; M19.90 Unspecified osteoarthritis, unspecified site; F17.210 Nicotine dependence, cigarettes, uncomplicated; Z79.82 Long term (current) use of aspirin
CPT/HCPCS: 36415; 80053; 81003; 82550; 83880; 84484; 85025; 93005; 99285; J7030

== ENCOUNTER → 2018-03-27 | Outpatient (CLI) | payer MEDICARE, MEDICAID | END | disposition home or self-care (01) | LOC: RADPV 11:42 | PROVIDERS: ATTEND Internal Medicine Geriatric Medicine | DX: M16.11 Unilateral primary osteoarthritis, right hip (principal) | CPT/HCPCS: 73502 ==

== ENCOUNTER 2018-10-02 14:04 | Emergency (ER) | payer MEDICARE, MEDICAID ==
[~2018-10-02 14:04] MED LIST changes: +BUPR-47 PO; +BUPR-93 PO; -ESTR-95 PO; -HYDR-4455 PO; +NALT50TA PO; +NALT50TA6 PO; -PALI78DI IM; +PARO10TA71 PO; +QUET100T33 PO; +QUET300T18 PO; -ROSU10 PO; +ROSU10TA22 PO; -SUMA25TA9 PO; +TRAZ-220 PO
== END 2018-10-02 14:15 | disposition left against medical advice (07) ==
LOC: EMS 14:04
DX: R10.9 Unspecified abdominal pain (principal); Z53.21 Procedure and treatment not carried out due to patient leaving prior to being seen by health care provider

== ENCOUNTER 2018-12-01 11:31 | Emergency (ER) | payer MEDICARE, MEDICAID ==
[~2018-12-01] VITALS: Ht 157.5 cm; Wt 97.7 kg
[2018-12-01] MEDS ORDERED: KETOROLAC TROMETHAMINE 30 MG/ML VIAL IM ONE (12:45)
[2018-12-01 13:38] LABS: APPEARANCE,URINE TURBID (CLEAR); BILIRUBIN,URINE NEGATIVE (NEGATIVE); GLUCOSE, URINE (UA) NEGATIVE (NEGATIVE); KETONES,URINE NEGATIVE (NEGATIVE); LEUKOCYTE ESTERASE ,URINE NEGATIVE (NEGATIVE); NITRATE,URINE NEGATIVE (NEGATIVE); OCCULT BLOOD,URINE NEGATIVE (NEGATIVE); PROTEIN,URINE NEGATIVE (NEGATIVE)
[2018-12-01 13:47] LABS: BACTERIA,URINE Moderate /HPF (None Seen); RBC,URINE None Seen /HPF (0-2); SQUAMOUS EPITHELIAL CELL,UR Few /LPF (None Seen); WBC,URINE 0-2 /HPF (0-5)
[2018-12-01 13:55] VITALS: BP 141/77
== END 2018-12-01 14:38 | disposition home or self-care (01) ==
LOC: EMS 11:32
DX: N39.0 Urinary tract infection, site not specified (principal); G43.909 Migraine, unspecified, not intractable, without status migrainosus; F20.9 Schizophrenia, unspecified; M19.90 Unspecified osteoarthritis, unspecified site; J44.9 Chronic obstructive pulmonary disease, unspecified; Z79.82 Long term (current) use of aspirin; Z79.899 Other long term (current) drug therapy
CPT/HCPCS: 81001; 87086; 96372; 99283; J1885

== ENCOUNTER 2019-02-16 12:23 | Emergency (ER) | payer MEDICARE, BC ==
[~2019-02-16] VITALS: Ht 157.5 cm; Wt 97.7 kg
[~2019-02-16 12:23] MED LIST changes: -BUPR-47 PO; -NALT50TA PO; -QUET100T PO; -QUET100T33 PO
[2019-02-16 13:26] LABS: BASOPHILS % (AUTO) 0.7 % (0.0-2.0); EOSINOPHILS % (AUTO) 2.1 % (1.0-6.0); HEMATOCRIT 40.6 % (36-46); LYMPHOCYTES # (AUTO) 2.3 K/uL (1.0-4.8); LYMPHOCYTES % (AUTO) 34.2 % (22.0-44.0); MEAN CORPUSCULAR HEMOGLOBIN 32.7 pg (26.0-34.0); MEAN CORPUSCULAR HGB CONC 34.4 G/dL (31.0-37.0); MEAN CORPUSCULAR VOLUME 95 fL (80-100); MONOCYTES # (AUTO) 0.5 K/uL (0.1-1.0); MONOCYTES % (AUTO) 7.4 % (2.0-9.0); NEUTROPHILS # (AUTO) 3.7 K/uL (1.8-7.7); NEUTROPHILS % (AUTO) 55.6 % (40.0-70.0); PLATELET COUNT (AUTO) 236 K/uL (150-450); RED BLOOD CELL COUNT(AUTO) 4.28 MIL/uL (4.00-5.20); RED CELL DISTRIBUTION WIDTH 12.6 % (11.5-14.5)
[2019-02-16 13:36] LABS: CALCIUM, TOTAL 8.9 mg/dL (8.8-10.5); CREATININE 0.99 mg/dL (0.60-1.30)
[2019-02-16 13:42] LABS: ALBUMIN 3.7 g/dL (3.4-5.0); BILIRUBIN,TOTAL 0.2 mg/dL (0.1-1.0); TOTAL PROTEIN, SERUM 6.7 g/dL (6.4-8.2)
[2019-02-16] MEDS ORDERED: TraMADol HCL 50 MG TABLET PO ONE (13:45)
[2019-02-16] MEDS ORDERED: KETOROLAC TROMETHAMINE 60 MG/2 ML VIAL IM ONE (13:45)
[2019-02-16 13:58] VITALS: BP 115/66
== END 2019-02-16 14:21 | disposition home or self-care (01) ==
LOC: EMS 12:26
DX: K59.00 Constipation, unspecified (principal); F25.9 Schizoaffective disorder, unspecified; G89.29 Other chronic pain; F31.9 Bipolar disorder, unspecified; J44.9 Chronic obstructive pulmonary disease, unspecified; G43.909 Migraine, unspecified, not intractable, without status migrainosus; F17.210 Nicotine dependence, cigarettes, uncomplicated; Z79.82 Long term (current) use of aspirin
CPT/HCPCS: 36415; 80053; 85025; 96372; 99283; 99406; J1885

== ENCOUNTER 2019-02-19 14:24 | Emergency (ER) | payer MEDICARE, MEDICAID ==
[~2019-02-19] VITALS: Ht 157.5 cm; Wt 97.7 kg
[2019-02-19] MEDS ORDERED: CYCLOBENZAPRINE HCL 10 MG TABLET PO ONE (17:00)
[2019-02-19] MEDS ORDERED: KETOROLAC TROMETHAMINE 60 MG/2 ML VIAL IM ONE (17:00)
[2019-02-19 18:03] VITALS: BP 120/61
== END 2019-02-19 18:11 | disposition home or self-care (01) ==
LOC: EMS 14:27
DX: G89.29 Other chronic pain (principal); M54.5 Low back pain; G43.909 Migraine, unspecified, not intractable, without status migrainosus; I25.10 Atherosclerotic heart disease of native coronary artery without angina pectoris; J44.9 Chronic obstructive pulmonary disease, unspecified; M19.90 Unspecified osteoarthritis, unspecified site; F11.10 Opioid abuse, uncomplicated; F20.9 Schizophrenia, unspecified; F31.9 Bipolar disorder, unspecified; F17.210 Nicotine dependence, cigarettes, uncomplicated; Z98.890 Other specified postprocedural states; Z79.82 Long term (current) use of aspirin; Z79.899 Other long term (current) drug therapy
CPT/HCPCS: 96372; 99283; J1885

== ENCOUNTER 2019-07-12 11:26 | Inpatient (IN) | payer MEDICARE, MEDICAID ==
[~2019-07-12] VITALS: Ht 154.9 cm; Wt 99.8 kg
[~2019-07-12 11:26] MED LIST changes: +ASPI-728 PO; -ASPI81 PO; -TRAZ-220 PO; +TRAZ-257 PO
[2019-07-12 12:20] VITALS: BP 100/68
[2019-07-12] MEDS ORDERED: GuaiFENesin/D-METHORPHAN [SUGAR-FREE] 200-20MG/10 ML SYRUP UDCUP PO PRN (13:00)
[2019-07-12] MEDS ORDERED: TUBERCULIN, PURIFIED PROTEIN DERIVATIVE 5 TU/0.1 ML SYRINGE ID ONE (13:00)
[2019-07-12] MEDS ORDERED: PROMETHAZINE HCL 25 MG TABLET PO PRN (13:00)
[2019-07-12] MEDS ORDERED: QUEtiapine FUMARATE 100 MG TABLET PO PRN ×2 (13:00)
[2019-07-12] MEDS ORDERED: LORazepam 1 MG TABLET PO PRN (13:00)
[2019-07-12] MEDS ORDERED: HydrOXYzine PAMOATE 50 MG CAPSULE PO PRN (13:00)
[2019-07-12] MEDS ORDERED: ZOLPIDEM TARTRATE 10 MG TABLET PO PRN ×2 (13:00)
[2019-07-12] MEDS: QUEtiapine FUMARATE 100 MG TABLET PO SCH ×2 (14:08→17:13)
[2019-07-12] MEDS ORDERED: PALIPERIDONE PALMITATE 156 MG/ML SYRINGE IM ONE (16:00)
[2019-07-12 16:18] VITALS: BP 106/78
[2019-07-12] MEDS: THIAMINE 100 MG TABLET PO SCH (16:35)
[2019-07-12] MEDS: NICOTINE 21 MG/24 HOUR PATCH TD SCH (19:05)
[2019-07-12] MEDS ORDERED: IBUPROFEN 600 MG TABLET PO PRN (19:30)
[2019-07-12] MEDS ORDERED: BACLOFEN 10 MG TABLET PO PRN (19:30)
[2019-07-12] MEDS ORDERED: ACETAMINOPHEN 325 MG TABLET PO PRN (19:30)
[2019-07-12] MEDS ORDERED: QUEtiapine FUMARATE 300 MG TABLET PO SCH (21:00)
[2019-07-12] MEDS ORDERED: ROSUVASTATIN CALCIUM 10 MG TABLET PO SCH (21:00)
[2019-07-12] MEDS ORDERED: TraZODone HCL 100 MG TABLET PO SCH (21:00)
[2019-07-13 05:40] VITALS: BP 118/75
[2019-07-13 08:07] LABS: BASOPHILS % (AUTO) 0.4 % (0.0-2.0); EOSINOPHILS % (AUTO) 2.4 % (1.0-6.0); HEMATOCRIT 41.9 % (36-46); LYMPHOCYTES # (AUTO) 1.8 K/uL (1.0-4.8); LYMPHOCYTES % (AUTO) 27.2 % (22.0-44.0); MEAN CORPUSCULAR HEMOGLOBIN 32.2 pg (26.0-34.0); MEAN CORPUSCULAR HGB CONC 33.5 G/dL (31.0-37.0); MEAN CORPUSCULAR VOLUME 96 fL (80-100); MONOCYTES # (AUTO) 0.4 K/uL (0.1-1.0); MONOCYTES % (AUTO) 6.1 % (2.0-9.0); NEUTROPHILS # (AUTO) 4.1 K/uL (1.8-7.7); NEUTROPHILS % (AUTO) 63.9 % (40.0-70.0); PLATELET COUNT (AUTO) 240 K/uL (150-450); RED BLOOD CELL COUNT(AUTO) 4.36 MIL/uL (4.00-5.20); RED CELL DISTRIBUTION WIDTH 12.9 % (11.5-14.5)
[2019-07-13] MEDS: OXYBUTYNIN CHLORIDE 5 MG TABLET PO SCH ×2 (08:40→13:08)
[2019-07-13] MEDS: THIAMINE 100 MG TABLET PO SCH (08:40)
[2019-07-13] MEDS: NICOTINE 21 MG/24 HOUR PATCH TD SCH (08:40)
[2019-07-13] MEDS: QUEtiapine FUMARATE 100 MG TABLET PO SCH ×2 (08:40→13:08)
[2019-07-13 08:49] LABS: ALBUMIN 3.6 g/dL (3.4-5.0); BILIRUBIN,TOTAL 0.3 mg/dL (0.1-1.0); CALCIUM, TOTAL 8.7 mg/dL (8.8-10.5); CHOL/HDL RATIO 3.5 (3.9-5.7); CREATININE 0.99 mg/dL (0.60-1.30); THYROID STIMULATING HORMONE 1.59 uIU/mL (0.36-3.74)
[2019-07-13 08:54] LABS: HEMOGLOBIN A1C 5.3 % (3.8-5.6)
[2019-07-13] MEDS ORDERED: ASPIRIN 81 MG CHEWABLE TABLET PO SCH (09:00)
[2019-07-13] MEDS ORDERED: FOLIC ACID 1 MG TABLET PO SCH (09:00)
[2019-07-13] MEDS ORDERED: MULTIVITAMINS WITH MINERALS, THERAPEUTIC TABLET PO SCH (09:00)
[2019-07-13] MEDS ORDERED: PARoxetine HCL 10 MG TABLET PO SCH (09:00)
[2019-07-13] MEDS ORDERED: BuPROPion HCL XL 150 MG ER TABLET PO SCH (09:00)
[2019-07-13] MEDS ORDERED: NALTREXONE HCL 50 MG TABLET PO SCH (09:00)
[2019-07-13] MEDS ORDERED: AmLODIPine BESYLATE 2.5 MG TABLET PO SCH (09:00)
[2019-07-13] MEDS ORDERED: TUBERCULIN, PURIFIED PROTEIN DERIVATIVE 5 TU/0.1 ML SYRINGE ID ONE (09:15)
[2019-07-13 09:45] LABS: FREE T4 (FREE THYROXINE) 0.72 ng/dL (0.76-1.46)
[2019-07-13 09:47] VITALS: BP 110/53
[2019-07-13 10:25] VITALS: BP 112/72
[2019-07-13] MEDS: LORazepam 1 MG TABLET PO PRN ×2 (10:26→13:48)
[2019-07-13] MEDS ORDERED: QUET200T PO (14:27)
[2019-07-13] MEDS ORDERED: PARO10TA71 PO (14:42)
[2019-07-13] MEDS ORDERED: NALT50TA PO (14:42)
[2019-07-13] MEDS ORDERED: TRAZ-257 PO (14:42)
[2019-07-13] MEDS ORDERED: BUPR-47 PO (14:42)
[2019-07-13] MEDS ORDERED: QUET300T18 PO (14:42)
[2019-07-26] MEDS ORDERED: PALIPERIDONE PALMITATE 156 MG/ML SYRINGE IM ONE (09:00)
[2019-08-09] MEDS ORDERED: PALIPERIDONE PALMITATE 156 MG/ML SYRINGE IM SCH (09:00)
== END 2019-07-13 16:45 | disposition home or self-care (01) | DRG 885 ==
LOC: B2X 11:41 → UNDOADMIN 11:41 → UNDODISIN 07-13 16:45
PROVIDERS: ADMIT Psychiatry & Neurology Psychiatry; ATTEND Psychiatry & Neurology Psychiatry
DX: F25.9 Schizoaffective disorder, unspecified (principal); Z68.41 Body mass index [BMI] 40.0-44.9, adult; F60.0 Paranoid personality disorder; E78.5 Hyperlipidemia, unspecified; I10 Essential (primary) hypertension; I25.10 Atherosclerotic heart disease of native coronary artery without angina pectoris; G89.4 Chronic pain syndrome; F17.210 Nicotine dependence, cigarettes, uncomplicated; E66.01 Morbid (severe) obesity due to excess calories; F32.9 Major depressive disorder, single episode, unspecified; G43.909 Migraine, unspecified, not intractable, without status migrainosus; M54.9 Dorsalgia, unspecified; J44.9 Chronic obstructive pulmonary disease, unspecified; R32 Unspecified urinary incontinence; Z81.8 Family history of other mental and behavioral disorders; Z91.19 Patient's noncompliance with other medical treatment and regimen
CPT/HCPCS: 83036; 84439; 84443; 86592

== ENCOUNTER → 2019-09-14 | Outpatient (CLI) | payer MEDICARE, MEDICAID ==
[~2019-09-14] MED LIST changes: -AMLO2.5T4 PO; +AMLO2.5T96 PO; +BUPR-47 PO; +NALT50TA PO
== END | disposition home or self-care (01) ==
LOC: RADPV 09:55
PROVIDERS: ATTEND Internal Medicine Geriatric Medicine
DX: M43.16 Spondylolisthesis, lumbar region (principal); M46.04 Spinal enthesopathy, thoracic region
CPT/HCPCS: 72072; 72100

== ENCOUNTER 2019-12-18 12:09 | Emergency (ER) | payer MEDICARE, MEDICAID ==
[~2019-12-18] VITALS: Ht 154.9 cm; Wt 100.0 kg
[2019-12-18] MEDS ORDERED: KETOROLAC TROMETHAMINE 30 MG/ML VIAL IM ONE (12:30)
[2019-12-18 13:20] VITALS: BP 121/80
== END 2019-12-18 13:39 | disposition home or self-care (01) ==
LOC: EMS 12:24
DX: J02.9 Acute pharyngitis, unspecified (principal); Z20.828 Contact with and (suspected) exposure to other viral communicable diseases
CPT/HCPCS: 87430; 96372; 99283; J1885; U0003

== ENCOUNTER 2020-09-30 10:28 | Emergency (ER) | payer MEDICARE, MEDICAID ==
[~2020-09-30] VITALS: Ht 162.6 cm; Wt 95.5 kg
[~2020-09-30 10:28] MED LIST changes: +ASPI-1450 PO; -ASPI-728 PO; -BUPR-47 PO; +BUPR-49 PO; -OXYB5 PO; +OXYB5TAB20 PO; -QUET300T18 PO; +QUET300T19 PO; -ROSU10TA22 PO; +ROSU10TA72 PO
[2020-09-30] MEDS ORDERED: ACETAMINOPHEN 500 MG TABLET PO ONE (11:15)
[2020-09-30] MEDS ORDERED: GABA-1181 PO (11:17)
[2020-09-30] MEDS ORDERED: BACL10TA PO (11:17)
[2020-09-30 12:16] LABS: BASOPHILS % (AUTO) 0.4 % (0.0-2.0); EOSINOPHILS % (AUTO) 1.5 % (1.0-6.0); HEMATOCRIT 42.2 % (36-46); HEMOGLOBIN 14.2 g/dL (12.0-16.0); LYMPHOCYTES # (AUTO) 2.1 K/uL (1.0-4.8); LYMPHOCYTES % (AUTO) 31.4 % (22.0-44.0); MEAN CORPUSCULAR HEMOGLOBIN 32.2 pg (26.0-34.0); MEAN CORPUSCULAR HGB CONC 33.6 G/dL (31.0-37.0); MEAN CORPUSCULAR VOLUME 96 fL (80-100); MONOCYTES # (AUTO) 0.5 K/uL (0.1-1.0); MONOCYTES % (AUTO) 7.9 % (2.0-9.0); NEUTROPHILS # (AUTO) 3.9 K/uL (1.8-7.7); NEUTROPHILS % (AUTO) 58.8 % (40.0-70.0); PLATELET COUNT (AUTO) 245 K/uL (150-450); RED CELL DISTRIBUTION WIDTH 12.9 % (11.5-14.5)
[2020-09-30 12:40] LABS: B-TYPE NATRIURETIC PEPTIDE 8 pg/mL (0-100)
[2020-09-30 12:45] VITALS: BP 119/82
[2020-09-30 13:06] LABS: ALANINE AMINOTRANSFERASE 34 U/L (12-78); ALBUMIN 3.5 g/dL (3.4-5.0); ALKALINE PHOSPHATASE 94 U/L (46-116); ASPARTATE AMINOTRANSFERASE 18 U/L (15-37); BILIRUBIN,TOTAL 0.2 mg/dL (0.1-1.0); CALCIUM, TOTAL 8.8 mg/dL (8.8-10.5); CARBON DIOXIDE 27 mmol/L (22-29); CREATINE KINASE, TOTAL ONLY 64 U/L (26-192); CREATININE 0.84 mg/dL (0.60-1.30); GLOMERULAR FILTR. RATE CALC > 60 mL/min (>60); GLUCOSE,RANDOM 86 mg/dL (70-110); HCG,QUANTITATIVE 2 mIU/mL (0-6); UREA NITROGEN, BLOOD 13 mg/dL (7-18)
[2020-09-30 13:10] LABS: ANION GAP 9 mmol/L (8-16); CHLORIDE 104 mmol/L (98-107); POTASSIUM 4.2 mmol/L (3.5-5.1); SODIUM SERUM 140 mmol/L (136-145)
[2020-09-30 14:03] LABS: APPEARANCE,URINE CLEAR (CLEAR); BILIRUBIN,URINE NEGATIVE (NEGATIVE); GLUCOSE, URINE (UA) NEGATIVE (NEGATIVE); KETONES,URINE NEGATIVE (NEGATIVE); LEUKOCYTE ESTERASE ,URINE NEGATIVE (NEGATIVE); NITRATE,URINE NEGATIVE (NEGATIVE); OCCULT BLOOD,URINE NEGATIVE (NEGATIVE); PROTEIN,URINE NEGATIVE (NEGATIVE); UROBILINOGEN,URINE 0.2 mg/dL (<=1.0)
[2020-09-30 14:12] LABS: AMPHET/METH SCREEN,URINE NEGATIVE (NEGATIVE); BARBITURATE SCREEN, URINE NEGATIVE (NEGATIVE); BENZODIAZEPINES SCREEN,URINE NEGATIVE (NEGATIVE); CANNABINOID SCREEN,URINE NEGATIVE (NEGATIVE); COCAINE SCREEN,URINE NEGATIVE (NEGATIVE); METHADONE SCREEN, URINE NEGATIVE (NEGATIVE); OPIATE SCREEN,URINE NEGATIVE (NEGATIVE)
[2020-09-30 14:15] LABS: PHENCYCLIDINE SCREEN,URINE NEGATIVE (NEGATIVE)
== END 2020-09-30 13:50 | disposition home or self-care (01) ==
LOC: EMS 10:45
DX: R55 Syncope and collapse (principal); F20.9 Schizophrenia, unspecified; F31.9 Bipolar disorder, unspecified; G43.909 Migraine, unspecified, not intractable, without status migrainosus; Z79.82 Long term (current) use of aspirin; Z79.899 Other long term (current) drug therapy; W19.XXXA Unspecified fall, initial encounter; Y93.89 Activity, other specified; Y92.89 Other specified places as the place of occurrence of the external cause; Y99.8 Other external cause status
CPT/HCPCS: 36415; 70450; 71045; 72125; 80053; 80307; 81003; 82550; 83880; 84484; 84702; 85025; 85610; 85730; 93005; 99285; G0480

== ENCOUNTER → 2022-06-17 | Outpatient (CLI) | payer MEDICARE, MEDICAID ==
[~2022-06-17] MED LIST changes: +BUPR-50 PO; -BUPR-93 PO; +GABA-1181 PO; +MELA5TAB40 PO; +OMEG-135 PO; -OXYB5TAB20 PO; +QUET200T PO; -ROSU10TA72 PO; +TRAZ150T80 PO
== END | disposition home or self-care (01) ==
LOC: LABMN 12:00
PROVIDERS: ATTEND Psychiatry & Neurology Psychiatry
DX: F25.1 Schizoaffective disorder, depressive type (principal); Z79.899 Other long term (current) drug therapy
CPT/HCPCS: 82947; 83036

== ENCOUNTER 2024-04-05 15:21 | Emergency (ER) | payer MEDICARE, MEDICAID ==
[~2024-04-05] VITALS: Ht 165.1 cm; Wt 84.1 kg
[~2024-04-05 15:21] MED LIST changes: -BUPR-50 PO; +BUPR-514 PO; -NALT50TA PO; +NALT50TA33 PO
[2024-04-05 15:32] VITALS: TEMP 97.8
[2024-04-05] MEDS: HALOPERIDOL LACTATE 5 MG/ML VIAL IM ONE (17:09)
[2024-04-05] MEDS: LORazepam 2 MG/ML VIAL IM ONE (17:10)
[2024-04-05 17:17] LABS: COVID AG,FIA SOURCE NASAL SWAB
[2024-04-05 17:17] LABS: BASOPHILS % (AUTO) 0.6 % (0.0-2.0); EOSINOPHILS % (AUTO) 2.5 % (1.0-6.0); HEMATOCRIT 39.9 % (36-46); HEMOGLOBIN 13.2 g/dL (12.0-16.0); LYMPHOCYTES % (AUTO) 38.3 % (22.0-44.0); MEAN CORPUSCULAR HEMOGLOBIN 31.5 pg (26.0-34.0); MEAN CORPUSCULAR HGB CONC 33.2 G/dL (31.0-37.0); MEAN CORPUSCULAR VOLUME 95 fL (80-100); MONOCYTES # (AUTO) 0.5 K/uL (0.1-1.0); MONOCYTES % (AUTO) 5.8 % (2.0-9.0); NEUTROPHILS # (AUTO) 4.1 K/uL (1.8-7.7); NEUTROPHILS % (AUTO) 52.8 % (40.0-70.0); PLATELET COUNT (AUTO) 251 K/uL (150-450); RED BLOOD CELL COUNT(AUTO) 4.21 MIL/uL (4.00-5.20); RED CELL DISTRIBUTION WIDTH 13.3 % (11.5-14.5); WHITE BLOOD COUNT (AUTO) 7.8 K/uL (4.5-11.0)
[2024-04-05 17:24] LABS: ANION GAP 8 mmol/L (8-16); CALCIUM, TOTAL 8.7 mg/dL (8.8-10.5); CARBON DIOXIDE 30 mmol/L (22-29); CHLORIDE 106 mmol/L (98-107); CREATININE 0.97 mg/dL (0.60-1.30); GLOMERULAR FILTR. RATE CALC 59 mL/min (>60); GLUCOSE,RANDOM 104 mg/dL (70-110); POTASSIUM 4.1 mmol/L (3.5-5.1); SODIUM SERUM 144 mmol/L (136-145); UREA NITROGEN, BLOOD 15 mg/dL (7-18)
[2024-04-05 17:33] LABS: ALCOHOL, BLOOD (SERUM) < 3 mg/dL (0-10)
[2024-04-05 17:37] LABS: SARS-COV2 (COVID) ANTIGEN,FIA Negative (Negative)
[2024-04-05 20:44] VITALS: BP 118/80; PULSE 79; RESP 18; O2SAT 95
== END 2024-04-05 20:57 | disposition home or self-care (01) ==
LOC: EMS 15:21
DX: F20.9 Schizophrenia, unspecified (principal); M19.90 Unspecified osteoarthritis, unspecified site; F31.9 Bipolar disorder, unspecified; J44.9 Chronic obstructive pulmonary disease, unspecified; G43.909 Migraine, unspecified, not intractable, without status migrainosus; F17.210 Nicotine dependence, cigarettes, uncomplicated; Z20.822 Contact with and (suspected) exposure to COVID-19; Z79.899 Other long term (current) drug therapy
CPT/HCPCS: 99284; 87426; 80048; 85025; 36415; 96372; G0480; J1630; J2060

== ENCOUNTER → 2024-04-27 | Emergency (ER) | payer MEDICARE, OTHER ==
[~2024-04-27] VITALS: Ht 167.6 cm; Wt 78.0 kg
[~2024-04-27] MED LIST changes: -ASPI-1450 PO; -BUPR-49 PO; -BUPR-514 PO; +BUPR-559 PO; -NALT50TA33 PO; -QUET200T PO; -TRAZ150T80 PO
[2024-04-27 18:39] VITALS: BP 99/69; PULSE 84; RESP 15; TEMP 98.9; O2SAT 97
[2024-04-27 20:14] LABS: AMPHET/METH SCREEN,URINE NEGATIVE (NEGATIVE); BARBITURATE SCREEN, URINE NEGATIVE (NEGATIVE); BENZODIAZEPINES SCREEN,URINE NEGATIVE (NEGATIVE); CANNABINOID SCREEN,URINE NEGATIVE (NEGATIVE); COCAINE SCREEN,URINE NEGATIVE (NEGATIVE); METHADONE SCREEN, URINE NEGATIVE (NEGATIVE); OPIATE SCREEN,URINE NEGATIVE (NEGATIVE); PHENCYCLIDINE SCREEN,URINE NEGATIVE (NEGATIVE)
[2024-04-27 20:18] LABS: ALCOHOL, URINE DRUG SCREEN NEGATIVE (NEGATIVE)
[2024-04-27] MEDS: LORazepam 2 MG/ML VIAL IVP ONE (20:27)
== END | disposition home or self-care (01) ==
LOC: EMS 18:38
DX: F41.0 Panic disorder [episodic paroxysmal anxiety] (principal); J44.9 Chronic obstructive pulmonary disease, unspecified; F20.9 Schizophrenia, unspecified; Z79.899 Other long term (current) drug therapy
CPT/HCPCS: 99283; 96374; 80307; J2060

== ENCOUNTER 2024-11-18 18:02 | Emergency (ER) | payer MEDICARE, OTHER ==
[~2024-11-18] VITALS: Ht 154.9 cm; Wt 91.0 kg
[~2024-11-18 18:02] MED LIST changes: +BUPR-50 PO; -BUPR-559 PO; -PARO10TA71 PO; -TRAZ-257 PO; +TRAZ150T80 PO
[2024-11-18 18:21] VITALS: BP 116/64; PULSE 74; RESP 16; TEMP 98.3; O2SAT 98
[2024-11-18 20:00] LABS: PLATELET COUNT (AUTO) 260 K/uL (150-450); RED BLOOD CELL COUNT(AUTO) 3.93 MIL/uL (4.00-5.20); RED CELL DISTRIBUTION WIDTH 15.6 % (11.5-14.5); WHITE BLOOD COUNT (AUTO) 6.6 K/uL (4.5-11.0)
[2024-11-18 20:12] LABS: CALCIUM, TOTAL 9.1 mg/dL (8.8-10.5); CREATININE 0.67 mg/dL (0.60-1.30); GLOMERULAR FILTR. RATE CALC > 60 mL/min (>60); GLUCOSE,RANDOM 88 mg/dL (70-110); SODIUM SERUM 142 mmol/L (136-145); UREA NITROGEN, BLOOD 18 mg/dL (7-18)
[2024-11-18 21:29] LABS: COVID AG,FIA SOURCE NASAL SWAB
[2024-11-18 21:52] LABS: SARS-COV2 (COVID) ANTIGEN,FIA Negative (Negative)
== END 2024-11-18 21:41 | disposition short-term general hospital (02) ==
LOC: EMS 18:02
DX: F20.9 Schizophrenia, unspecified (principal); F41.9 Anxiety disorder, unspecified; F31.9 Bipolar disorder, unspecified; F11.20 Opioid dependence, uncomplicated; J44.9 Chronic obstructive pulmonary disease, unspecified; F17.210 Nicotine dependence, cigarettes, uncomplicated; M19.90 Unspecified osteoarthritis, unspecified site; Z79.899 Other long term (current) drug therapy; Z20.822 Contact with and (suspected) exposure to COVID-19
CPT/HCPCS: 99285; 87426; 80048; 85025; 36415; 82962; G0480

== ENCOUNTER 2024-11-22 13:42 | Inpatient (IN) | payer MEDICARE, MEDICAID ==
[~2024-11-22] VITALS: Ht 154.9 cm; Wt 54.2 kg
[2024-11-22 13:48] VITALS: O2SAT 96
[2024-11-22 15:29] LABS: COVID AG,FIA SOURCE NASAL SWAB
[2024-11-22 15:33] LABS: PLATELET COUNT (AUTO) 234 K/uL (150-450); RED BLOOD CELL COUNT(AUTO) 3.99 MIL/uL (4.00-5.20); RED CELL DISTRIBUTION WIDTH 16.1 % (11.5-14.5); WHITE BLOOD COUNT (AUTO) 6.4 K/uL (4.5-11.0)
[2024-11-22 15:36] LABS: CALCIUM, TOTAL 8.6 mg/dL (8.8-10.5); CREATININE 0.69 mg/dL (0.60-1.30); GLOMERULAR FILTR. RATE CALC > 60 mL/min (>60); GLUCOSE,RANDOM 97 mg/dL (70-110); SODIUM SERUM 141 mmol/L (136-145); UREA NITROGEN, BLOOD 16 mg/dL (7-18)
[2024-11-22 16:30] LABS: PH,URINE DRUG SCREEN 6.0 (5.0-8.0)
[2024-11-22 16:33] LABS: ALCOHOL, URINE DRUG SCREEN NEGATIVE (NEGATIVE); AMPHET/METH SCREEN,URINE NEGATIVE (NEGATIVE); BARBITURATE SCREEN, URINE NEGATIVE (NEGATIVE); CANNABINOID SCREEN,URINE NEGATIVE (NEGATIVE); COCAINE SCREEN,URINE NEGATIVE (NEGATIVE); METHADONE SCREEN, URINE NEGATIVE (NEGATIVE)
[2024-11-22] MEDS ORDERED: MAG HYDROX/ALUMINUM HYD/SIMETH ES 30 ML SUSPENSION UDCUP PO PRN (16:45)
[2024-11-22] MEDS ORDERED: MAGNESIUM HYDROXIDE SUSPENSION 30 ML UDCUP PO PRN (16:45)
[2024-11-22] MEDS ORDERED: LOPERAMIDE HCL 2 MG CAPSULE PO PRN (16:45)
[2024-11-22] MEDS ORDERED: GuaiFENesin/D-METHORPHAN [SUGAR-FREE] 200-20MG/10 ML SYRUP UDCUP PO PRN (16:45)
[2024-11-22] MEDS ORDERED: MELATONIN 5 MG TABLET PO PRN (16:45)
[2024-11-22] MEDS ORDERED: ZOLPIDEM TARTRATE 10 MG TABLET PO PRN (16:45)
[2024-11-22] MEDS ORDERED: PROMETHAZINE HCL 25 MG TABLET PO PRN (16:45)
[2024-11-22 17:18] LABS: SARS-COV2 (COVID) ANTIGEN,FIA Negative (Negative)
[2024-11-22] MEDS: NICOTINE 14 MG/24 HOUR PATCH TD ONE (18:39)
[2024-11-22 21:33] VITALS: BP 122/98; PULSE 79; RESP 16; TEMP 98.5; O2SAT 98
[2024-11-23] MEDS: BENZTROPINE MESYLATE 0.5 MG TABLET PO SCH (01:10)
[2024-11-23] MEDS: TraZODone HCL 150 MG TABLET PO SCH (01:11)
[2024-11-23] MEDS: THIAMINE 100 MG TABLET PO SCH (01:11)
[2024-11-23] MEDS: MULTIVITAMINS WITH MINERALS, THERAPEUTIC TABLET PO SCH (08:33)
[2024-11-23] MEDS: BuPROPion HCL XL 150 MG ER TABLET PO SCH (08:33)
[2024-11-23] MEDS: NALTREXONE HCL 50 MG TABLET PO SCH (08:33)
[2024-11-23] MEDS: FOLIC ACID 1 MG TABLET PO SCH (08:34)
[2024-11-23 08:38] VITALS: BP 133/74; PULSE 65; RESP 18; TEMP 97.9; O2SAT 97
[2024-11-23] MEDS: PALIPERIDONE PALMITATE 234 MG/1.5 ML SYRINGE IM ONE (08:42)
[2024-11-23] MEDS: OMEGA-3/DHA/EPA/FISH OIL 1,000 MG CAPSULE PO SCH (08:47)
[2024-11-23] MEDS ORDERED: OMEGA-3/DHA/EPA/FISH OIL 1,000 MG CAPSULE PO SCH (09:00)
[2024-11-23 10:47] LABS: CHOL/HDL RATIO 2.6 (3.9-5.7); LDL CHOL (CALC.) 61.0 mg/dL (0-130)
[2024-11-23] MEDS: TUBERCULIN, PURIFIED PROTEIN DERIVATIVE 5 TU/0.1 ML SYRINGE ID ONE (15:53)
[2024-11-23] MEDS: NICOTINE POLACRILEX 2 MG LOZENGE PO PRN (16:30)
[2024-11-23 20:17] VITALS: BP 125/74; PULSE 88; RESP 18; TEMP 98.1; O2SAT 99
[2024-11-24 08:10] VITALS: BP 121/78; PULSE 96; RESP 18; TEMP 97.4; O2SAT 98
[2024-11-24] MEDS ORDERED: QUET200T PO (17:01)
[2024-11-24] MEDS: MELATONIN 5 MG TABLET PO SCH (20:51)
[2024-11-24 22:03] VITALS: BP 97/63; PULSE 87; RESP 19; TEMP 97.9; O2SAT 98
[2024-11-25 08:19] VITALS: BP 136/72; PULSE 96; RESP 18; TEMP 97.4; O2SAT 99
[2024-11-25 20:12] VITALS: BP 123/82; PULSE 91; RESP 18; TEMP 98.3; O2SAT 97
[2024-11-26 08:11] VITALS: BP 120/88; PULSE 76; RESP 17; TEMP 97.7; O2SAT 99
[2024-11-26] MEDS ORDERED: GABAPENTIN 300 MG CAPSULE PO PRN (16:15)
[2024-11-26 16:35] VITALS: RESP 18
[2024-11-26] MEDS: ACETAMINOPHEN 325 MG TABLET PO PRN (16:37)
[2024-11-26] MEDS: GABAPENTIN 300 MG CAPSULE PO SCH (16:45)
[2024-11-26 17:34] VITALS: RESP 18
[2024-11-26 20:10] VITALS: BP 118/74; PULSE 79; RESP 18; TEMP 97.8; O2SAT 98
[2024-11-27 08:18] VITALS: BP 110/69; PULSE 78; RESP 17; TEMP 98.1; O2SAT 97
[2024-11-27 09:34] VITALS: BP 110/75; PULSE 94; RESP 16; TEMP 97.2; O2SAT 98
[2024-11-27] MEDS: DULoxetine HCL 20 MG CAPSULE PO SCH (09:37)
[2024-11-27] MEDS: PALIPERIDONE PALMITATE 156 MG/ML SYRINGE IM ONE (10:06)
[2024-11-27] MEDS ORDERED: BENZ0.5T52 PO (16:50)
[2024-11-27] MEDS ORDERED: OMEG100033 PO (16:50)
[2024-11-27] MEDS ORDERED: NALT50TA33 PO (16:50)
[2024-11-27] MEDS ORDERED: GABA-1181 PO (16:50)
[2024-11-27] MEDS ORDERED: TRAZ-257 PO (16:50)
[2024-11-27] MEDS ORDERED: DULO30CA62 PO (16:50)
[2024-11-27 20:06] VITALS: BP 103/67; PULSE 88; RESP 17; TEMP 97.7; O2SAT 98
[2024-11-28 08:05] VITALS: BP 131/72; PULSE 68; RESP 18; TEMP 98.1; O2SAT 95
[2024-11-28] MEDS: DULoxetine HCL 30 MG CAPSULE PO SCH (08:09)
[2024-11-28] MEDS ORDERED: PALI117D IM (08:25)
[2024-11-28 08:56] LABS: APPEARANCE,URINE TURBID (CLEAR); GLUCOSE, URINE (UA) NEGATIVE (NEGATIVE); LEUKOCYTE ESTERASE ,URINE LARGE (NEGATIVE); NITRATE,URINE POSITIVE (NEGATIVE); OCCULT BLOOD,URINE NEGATIVE (NEGATIVE); SPECIFIC GRAVITIY, URINE 1.027 (1.003-1.030)
[2024-11-28 09:54] LABS: AMORPHOUS SEDIMENT,UR Many /LPF (None Seen)
== END 2024-11-28 10:05 | disposition home or self-care (01) | DRG 885 ==
LOC: EMS 13:49 → B2X 19:06
PROVIDERS: ADMIT Psychiatry & Neurology Psychiatry; ATTEND Psychiatry & Neurology Psychiatry
PROC: GZHZZZZ Group Psychotherapy (ICD-10-PCS; principal; 2024-11-23)
PROC: GZ58ZZZ Individual Psychotherapy, Cognitive-Behavioral (ICD-10-PCS; 2024-11-23)
PROC: GZ56ZZZ Individual Psychotherapy, Supportive (ICD-10-PCS; 2024-11-23)
DX: F25.0 Schizoaffective disorder, bipolar type (principal); F11.20 Opioid dependence, uncomplicated; Z20.822 Contact with and (suspected) exposure to COVID-19; E11.9 Type 2 diabetes mellitus without complications; F17.200 Nicotine dependence, unspecified, uncomplicated; G47.00 Insomnia, unspecified; I10 Essential (primary) hypertension; I25.10 Atherosclerotic heart disease of native coronary artery without angina pectoris; J44.9 Chronic obstructive pulmonary disease, unspecified; E66.9 Obesity, unspecified; F15.90 Other stimulant use, unspecified, uncomplicated; G89.29 Other chronic pain; E78.5 Hyperlipidemia, unspecified; Z55.9 Problems related to education and literacy, unspecified; Z59.9 Problem related to housing and economic circumstances, unspecified; Z63.9 Problem related to primary support group, unspecified; Z65.3 Problems related to other legal circumstances; Z86.73 Personal history of transient ischemic attack (TIA), and cerebral infarction without residual deficits; Z91.148 Patient's other noncompliance with medication regimen for other reason
CPT/HCPCS: 80048; 80061; 80307; 81001; 83036; 84439; 84443; 85025; 86592; 87077; 87081; 87086; 87186; 99285; G0480

== ENCOUNTER 2024-12-07 13:31 | Inpatient (IN) | payer MEDICARE, MEDICAID ==
[~2024-12-07] VITALS: Ht 156.2 cm; Wt 90.3 kg
[~2024-12-07 13:31] MED LIST changes: +BENZ0.5T52 PO; -BUPR-50 PO; +DULO30CA62 PO; +NALT50TA33 PO; -NALT50TA6 PO; -OMEG-135 PO; +OMEG100033 PO; +PALI117D IM; +TRAZ-257 PO; -TRAZ150T80 PO
[2024-12-07 14:43] VITALS: BP 122/80; PULSE 88; RESP 18; TEMP 97.8; O2SAT 96
[2024-12-07 17:01] LABS: GLUCOMETER DEV NAME(LOC) POC.BV; POC SARS-COV2 AG, FIA NEGATIVE (NEGATIVE)
[2024-12-07] MEDS ORDERED: -PHARMACY VACCINE NOTE- MISC ONE (18:30)
[2024-12-07 20:37] VITALS: BP 110/77; PULSE 76; RESP 16; TEMP 98.1; O2SAT 98
[2024-12-07] MEDS ORDERED: NALT50TA33 PO (21:31)
[2024-12-07] MEDS: ZOLPIDEM TARTRATE 5 MG TABLET PO PRN (21:53)
[2024-12-08 08:20] VITALS: BP 125/71; PULSE 95; RESP 18; TEMP 98.6; O2SAT 99
[2024-12-08] MEDS: OMEGA-3/DHA/EPA/FISH OIL 1,000 MG CAPSULE PO SCH (08:55)
[2024-12-08] MEDS: NYSTATIN 15 GM POWDER BOTTLE TP SCH (09:00)
[2024-12-08] MEDS: MELATONIN 5 MG TABLET PO SCH (20:07)
[2024-12-08 20:30] VITALS: BP 106/60; PULSE 89; RESP 18; TEMP 98.3; O2SAT 94
[2024-12-09 08:17] LABS: PLATELET COUNT (AUTO) 276 K/uL (150-450); RED BLOOD CELL COUNT(AUTO) 4.11 MIL/uL (4.00-5.20); RED CELL DISTRIBUTION WIDTH 15.1 % (11.5-14.5); WHITE BLOOD COUNT (AUTO) 7.5 K/uL (4.5-11.0)
[2024-12-09 08:49] LABS: CALCIUM, TOTAL 8.5 mg/dL (8.8-10.5); CREATININE 0.73 mg/dL (0.60-1.30); GLOMERULAR FILTR. RATE CALC > 60 mL/min (>60); GLUCOSE,RANDOM 104 mg/dL (70-110); SODIUM SERUM 141 mmol/L (136-145); UREA NITROGEN, BLOOD 21 mg/dL (7-18)
[2024-12-09 09:00] LABS: APPEARANCE,URINE HAZY (CLEAR); GLUCOSE, URINE (UA) NEGATIVE (NEGATIVE); LEUKOCYTE ESTERASE ,URINE MODERATE (NEGATIVE); NITRATE,URINE POSITIVE (NEGATIVE); OCCULT BLOOD,URINE NEGATIVE (NEGATIVE); SPECIFIC GRAVITIY, URINE 1.022 (1.003-1.030)
[2024-12-09 09:01] LABS: PH,URINE DRUG SCREEN 7.0 (5.0-8.0)
[2024-12-09 09:10] LABS: ALCOHOL, URINE DRUG SCREEN NEGATIVE (NEGATIVE); AMPHET/METH SCREEN,URINE NEGATIVE (NEGATIVE); BARBITURATE SCREEN, URINE NEGATIVE (NEGATIVE); CANNABINOID SCREEN,URINE NEGATIVE (NEGATIVE); COCAINE SCREEN,URINE NEGATIVE (NEGATIVE); METHADONE SCREEN, URINE NEGATIVE (NEGATIVE)
[2024-12-09 09:22] LABS: SQUAMOUS EPITHELIAL CELL,UR Moderate /LPF (None Seen)
[2024-12-09 10:36] VITALS: BP 116/65; PULSE 83; RESP 18; TEMP 98.2; O2SAT 100
[2024-12-09 20:12] VITALS: BP 121/78; PULSE 83; RESP 18; TEMP 97.2; O2SAT 97
[2024-12-09] MEDS: ACETAMINOPHEN 325 MG TABLET PO PRN (23:24)
[2024-12-09 23:26] VITALS: BP 124/86; PULSE 87; RESP 18; TEMP 97.8; O2SAT 97
[2024-12-10 00:33] VITALS: RESP 18
[2024-12-10 08:30] VITALS: BP 143/94; PULSE 93; RESP 18; TEMP 97.8; O2SAT 98
[2024-12-10] MEDS ORDERED: ZOLPIDEM TARTRATE 10 MG TABLET PO PRN (09:30)
[2024-12-10] MEDS ORDERED: PROMETHAZINE HCL 25 MG TABLET PO PRN (09:30)
[2024-12-10] MEDS ORDERED: GuaiFENesin/D-METHORPHAN [SUGAR-FREE] 200-20MG/10 ML SYRUP UDCUP PO PRN (09:30)
[2024-12-10] MEDS ORDERED: MAGNESIUM HYDROXIDE SUSPENSION 30 ML UDCUP PO PRN (09:30)
[2024-12-10] MEDS ORDERED: MAG HYDROX/ALUMINUM HYD/SIMETH ES 30 ML SUSPENSION UDCUP PO PRN (09:30)
[2024-12-10] MEDS ORDERED: ACETAMINOPHEN 325 MG TABLET PO PRN (09:30)
[2024-12-10] MEDS ORDERED: PALIPERIDONE PALMITATE 234 MG/1.5 ML SYRINGE IM ONE (09:30)
[2024-12-10] MEDS: SULFAMETHOX/TRIMETH DS 800-160 MG/TABLET PO SCH (12:02)
[2024-12-10] MEDS: BENZTROPINE MESYLATE 0.5 MG TABLET PO SCH (12:02)
[2024-12-10] MEDS: GABAPENTIN 300 MG CAPSULE PO SCH (12:02)
[2024-12-10] MEDS: INFLUENZA VIRUS VACCINE TVS (6MO+) 2025-26/PF 45 MCG/0.5 ML SYRINGE IM. ONE (14:52)
[2024-12-10] MEDS: THIAMINE 100 MG TABLET PO SCH (16:33)
[2024-12-10] MEDS ORDERED: SULFAMETHOX/TRIMETH DS 800-160 MG/TABLET PO SCH ×2 (17:00)
[2024-12-10 20:00] VITALS: BP 120/74; PULSE 82; RESP 17; TEMP 97.7; O2SAT 97
[2024-12-11] MEDS: NALTREXONE HCL 50 MG TABLET PO SCH (08:38)
[2024-12-11] MEDS: FOLIC ACID 1 MG TABLET PO SCH (08:38)
[2024-12-11] MEDS: DULoxetine HCL 30 MG CAPSULE PO SCH (08:39)
[2024-12-11] MEDS: BuPROPion HCL XL 150 MG ER TABLET PO SCH (08:39)
[2024-12-11 08:40] VITALS: BP 127/80; PULSE 86; RESP 17; TEMP 98.3; O2SAT 99
[2024-12-11] MEDS: MULTIVITAMINS WITH MINERALS, THERAPEUTIC TABLET PO SCH (08:45)
[2024-12-11] MEDS: TUBERCULIN, PURIFIED PROTEIN DERIVATIVE 5 TU/0.1 ML SYRINGE ID ONE (17:47)
[2024-12-11 20:17] VITALS: BP 139/85; PULSE 81; RESP 18; TEMP 98.1; O2SAT 98
[2024-12-11] MEDS: GABAPENTIN 100 MG CAPSULE PO SCH (20:21)
[2024-12-12] MEDS: DULoxetine HCL 20 MG CAPSULE PO SCH (08:24)
[2024-12-12] MEDS: BuPROPion HCL XL 150 MG ER TABLET PO SCH (08:24)
[2024-12-12 08:41] VITALS: BP 133/80; PULSE 64; RESP 18; TEMP 98.1; O2SAT 97
[2024-12-12 09:19] LABS: PLATELET COUNT (AUTO) 305 K/uL (150-450); RED BLOOD CELL COUNT(AUTO) 4.35 MIL/uL (4.00-5.20); RED CELL DISTRIBUTION WIDTH 15.8 % (11.5-14.5); WHITE BLOOD COUNT (AUTO) 6.9 K/uL (4.5-11.0)
[2024-12-12 09:52] LABS: ASPARTATE AMINOTRANSFERASE 18 U/L (15-37); CALCIUM, TOTAL 8.7 mg/dL (8.8-10.5); CHOL/HDL RATIO 4.1 (3.9-5.7); CREATININE 0.60 mg/dL (0.60-1.30); GLOMERULAR FILTR. RATE CALC > 60 mL/min (>60); GLUCOSE,RANDOM 76 mg/dL (70-110); LDL CHOL (CALC.) 134 mg/dL (0-130); SODIUM SERUM 141 mmol/L (136-145); TOTAL PROTEIN, SERUM 6.9 g/dL (6.4-8.2); UREA NITROGEN, BLOOD 13 mg/dL (7-18)
[2024-12-12] MEDS: GABAPENTIN 300 MG CAPSULE PO PRN (10:36)
[2024-12-12 20:36] VITALS: BP 109/69; PULSE 82; RESP 16; TEMP 98; O2SAT 100
[2024-12-12] MEDS ORDERED: BUPR-49 PO (23:48)
[2024-12-12] MEDS ORDERED: DULO20CA23 PO (23:48)
[2024-12-12] MEDS ORDERED: AMAN-24 PO (23:48)
[2024-12-12] MEDS ORDERED: QUET200T30 PO (23:49)
[2024-12-13] MEDS: LOPERAMIDE HCL 2 MG CAPSULE PO PRN (04:52)
[2024-12-13 08:51] VITALS: BP 119/77; PULSE 85; RESP 17; TEMP 97; O2SAT 98
[2024-12-13] MEDS ORDERED: SULF-261 PO (11:26)
[2025-01-07] MEDS ORDERED: PALIPERIDONE PALMITATE 117 MG/0.75 ML SYRINGE IM SCH (09:00)
== END 2024-12-13 12:13 | disposition home or self-care (01) | DRG 885 ==
LOC: B2X 15:24
PROVIDERS: ADMIT Psychiatry & Neurology Psychiatry; ATTEND Psychiatry & Neurology Psychiatry
PROC: GZHZZZZ Group Psychotherapy (ICD-10-PCS; principal; 2024-12-07)
PROC: GZ56ZZZ Individual Psychotherapy, Supportive (ICD-10-PCS; 2024-12-07)
DX: F25.0 Schizoaffective disorder, bipolar type (principal); R45.851 Suicidal ideations; N39.0 Urinary tract infection, site not specified; F41.9 Anxiety disorder, unspecified; G47.00 Insomnia, unspecified; I10 Essential (primary) hypertension; Z20.822 Contact with and (suspected) exposure to COVID-19; F12.90 Cannabis use, unspecified, uncomplicated; F60.0 Paranoid personality disorder; K21.9 Gastro-esophageal reflux disease without esophagitis; E66.9 Obesity, unspecified; Z60.8 Other problems related to social environment; F17.200 Nicotine dependence, unspecified, uncomplicated; J44.9 Chronic obstructive pulmonary disease, unspecified; E78.00 Pure hypercholesterolemia, unspecified; I25.10 Atherosclerotic heart disease of native coronary artery without angina pectoris; D64.9 Anemia, unspecified; Z63.9 Problem related to primary support group, unspecified; Z86.73 Personal history of transient ischemic attack (TIA), and cerebral infarction without residual deficits; Z59.9 Problem related to housing and economic circumstances, unspecified; Z65.3 Problems related to other legal circumstances; Z55.9 Problems related to education and literacy, unspecified; Z68.37 Body mass index [BMI] 37.0-37.9, adult; Z88.0 Allergy status to penicillin; Z79.899 Other long term (current) drug therapy
CPT/HCPCS: 80048; 80053; 80061; 80307; 81001; 84439; 84443; 85025; 86592; 87077; 87081; 87086; 87186; 90686; 90853

== ENCOUNTER 2025-01-24 15:16 | Inpatient (IN) | payer MEDICARE, OTHER ==
[~2025-01-24] VITALS: Ht 154.9 cm; Wt 89.0 kg
[~2025-01-24 15:16] MED LIST changes: +AMAN-24 PO; -BENZ0.5T52 PO; +BUPR-49 PO; +DULO20CA23 PO; -DULO30CA62 PO; -GABA-1181 PO; -PALI117D IM; +QUET200T30 PO; -QUET300T19 PO; +SULF1TAB94 PO
[2025-01-24 16:04] LABS: COVID AG,FIA SOURCE NASAL SWAB
[2025-01-24 16:25] LABS: SARS-COV2 (COVID) ANTIGEN,FIA Negative (Negative)
[2025-01-24 16:27] LABS: INFLUENZA TYPE A NEGATIVE FOR TYPE A (NEGATIVE); INFLUENZA TYPE B NEGATIVE FOR TYPE B (NEGATIVE)
[2025-01-24 16:34] LABS: PLATELET COUNT (AUTO) 231 K/uL (150-450); RED BLOOD CELL COUNT(AUTO) 4.07 MIL/uL (4.00-5.20); RED CELL DISTRIBUTION WIDTH 15.2 % (11.5-14.5); WHITE BLOOD COUNT (AUTO) 5.6 K/uL (4.5-11.0)
[2025-01-24 16:42] LABS: CALCIUM, TOTAL 9.0 mg/dL (8.8-10.5); CREATININE 0.74 mg/dL (0.60-1.30); GLOMERULAR FILTR. RATE CALC > 60 mL/min (>60); GLUCOSE,RANDOM 106 mg/dL (70-110); SODIUM SERUM 144 mmol/L (136-145); UREA NITROGEN, BLOOD 16 mg/dL (7-18)
[2025-01-24 16:51] LABS: ASPARTATE AMINOTRANSFERASE 19.0 U/L (15-37); TOTAL PROTEIN, SERUM 6.2 g/dL (6.4-8.2)
[2025-01-24 16:53] LABS: TROPONIN I-HIGH SENSITIVITY 6 ng/L (<51)
[2025-01-24] MEDS: POTASSIUM CHLORIDE 20 MEQ ER TABLET PO ONE (17:35)
[2025-01-24] MEDS: SODIUM CHLORIDE 0.9% 1,000 ML IV ONE (17:36)
[2025-01-24] MEDS: POTASSIUM CHL 10 MEQ/WATER 50 ML IV SCH (17:36)
[2025-01-24 17:38] LABS: PHOSPHORUS 3.4 mg/dL (2.5-4.9)
[2025-01-24] MEDS ORDERED: 0.9% SODIUM CHLORIDE 10 ML SYRINGE IVP ONE (18:41)
[2025-01-24] MEDS ORDERED: IOHEXOL 300 MG/ML 100 ML VIAL ONE (18:41)
[2025-01-24] MEDS ORDERED: SODIUM CHLORIDE 0.9% 100 ML ONE (18:41)
[2025-01-24] MEDS: HYDROCODONE/ACETAMINOPHEN 5-325 MG TABLET PO ONE (19:33)
[2025-01-24 20:43] LABS: APPEARANCE,URINE CLEAR (CLEAR); GLUCOSE, URINE (UA) NEGATIVE (NEGATIVE); LEUKOCYTE ESTERASE ,URINE NEGATIVE (NEGATIVE); NITRATE,URINE NEGATIVE (NEGATIVE); OCCULT BLOOD,URINE NEGATIVE (NEGATIVE)
[2025-01-24 20:55] LABS: SPECIFIC GRAVITIY, URINE > 1.030 (1.003-1.030)
[2025-01-24 21:16] VITALS: BP 134/95; PULSE 77; RESP 19; TEMP 98.4; O2SAT 96
[2025-01-24] MEDS ORDERED: MAGNESIUM OXIDE 400 MG TABLET PO PRN (22:45)
[2025-01-24] MEDS ORDERED: MAGNESIUM SULFATE 4 GM/WATER 100 ML IV PRN (22:45)
[2025-01-24] MEDS ORDERED: POTASSIUM CHL 10 MEQ/WATER 50 ML IV PRN (22:45)
[2025-01-24 23:04] VITALS: BP 123/81; PULSE 71; RESP 18; TEMP 98.6; O2SAT 99
[2025-01-24] MEDS: POTASSIUM CHLORIDE 20 MEQ ER TABLET PO PRN (23:27)
[2025-01-24] MEDS: DEXTROSE 5%-0.45% SODIUM CHL 1,000 ML IV ONE (23:28)
[2025-01-24] MEDS ORDERED: SODIUM CHLORIDE 0.9% 250 ML IV ONE (23:54)
[2025-01-25] MEDS: MAGNESIUM SULFATE 2 GM/WATER 50 ML IV PRN
[2025-01-25 04:06] VITALS: BP 105/72; PULSE 80; RESP 18; TEMP 98.8; O2SAT 98
[2025-01-25 06:01] LABS: GLUCOMETER DEV NAME(LOC) 5S.2E; GLUCOSE,POINT OF CARE 85 MG/DL (70-110)
[2025-01-25 07:15] VITALS: BP 145/87; PULSE 74; RESP 18; TEMP 98.1; O2SAT 95
[2025-01-25 08:11] LABS: CALCIUM, TOTAL 8.1 mg/dL (8.8-10.5); CREATININE 0.66 mg/dL (0.60-1.30); GLOMERULAR FILTR. RATE CALC > 60 mL/min (>60); GLUCOSE,RANDOM 97 mg/dL (70-110); SODIUM SERUM 145 mmol/L (136-145); UREA NITROGEN, BLOOD 10 mg/dL (7-18)
[2025-01-25 10:44] LABS: C.DIFF GDH ANTIGEN, Stool Negative (Negative)
[2025-01-25 10:45] VITALS: BP 124/67; PULSE 77; RESP 17; TEMP 98.1; O2SAT 98
[2025-01-25 10:45] LABS: C.DIFF TOXINS A&B, Stool Negative (Negative)
[2025-01-25] MEDS ORDERED: ONDANSETRON HCL 4 MG/2 ML VIAL IVP PRN (12:30)
[2025-01-25] MEDS ORDERED: ZOLPIDEM TARTRATE 5 MG TABLET PO PRN (12:30)
[2025-01-25] MEDS ORDERED: BISACODYL 10 MG RECTAL RECTAL SUPPOSITORY PR PRN (12:30)
[2025-01-25] MEDS ORDERED: MAGNESIUM HYDROXIDE SUSPENSION 30 ML UDCUP PO PRN (12:30)
[2025-01-25] MEDS: ACETAMINOPHEN 325 MG TABLET PO PRN (13:22)
[2025-01-25 15:00] VITALS: BP 116/74; PULSE 80; RESP 18; TEMP 98; O2SAT 96
[2025-01-25] MEDS: LACTOBACILLUS ACIDOPHILUS/BULGARICUS GRANULES PACKET PO SCH (16:34)
[2025-01-25] MEDS: HEPARIN SODIUM,PORCINE 5,000 UNITS/ML VIAL SQ SCH (16:35)
[2025-01-25 20:09] VITALS: BP 107/75; PULSE 80; RESP 18; TEMP 98.6; O2SAT 96
[2025-01-25] MEDS: DOCUSATE SODIUM 100 MG CAPSULE PO SCH (21:00)
[2025-01-25] MEDS: MELATONIN 5 MG TABLET PO SCH (22:22)
[2025-01-25 23:49] VITALS: BP 101/53; PULSE 81; RESP 17; TEMP 98.4; O2SAT 95
[2025-01-26 03:45] VITALS: BP 129/75; PULSE 69; RESP 17; TEMP 97.9; O2SAT 98
[2025-01-26 07:01] LABS: PLATELET COUNT (AUTO) 208 K/uL (150-450); RED BLOOD CELL COUNT(AUTO) 3.82 MIL/uL (4.00-5.20); RED CELL DISTRIBUTION WIDTH 15.2 % (11.5-14.5); WHITE BLOOD COUNT (AUTO) 4.1 K/uL (4.5-11.0)
[2025-01-26 07:10] LABS: CALCIUM, TOTAL 8.2 mg/dL (8.8-10.5); CREATININE 0.64 mg/dL (0.60-1.30); GLOMERULAR FILTR. RATE CALC > 60 mL/min (>60); GLUCOSE,RANDOM 87 mg/dL (70-110); SODIUM SERUM 146 mmol/L (136-145); UREA NITROGEN, BLOOD 9 mg/dL (7-18)
[2025-01-26] MEDS: DULoxetine HCL 20 MG CAPSULE PO SCH (08:04)
[2025-01-26] MEDS: NALTREXONE HCL 50 MG TABLET PO SCH (08:04)
[2025-01-26] MEDS: LOPERAMIDE HCL 2 MG CAPSULE PO PRN (08:05)
[2025-01-26] MEDS: BuPROPion HCL XL 150 MG ER TABLET PO SCH (08:05)
[2025-01-26] MEDS: PANTOPRAZOLE SODIUM 40 MG DR TABLET PO SCH (08:06)
[2025-01-26 08:25] VITALS: BP 128/62; PULSE 73; RESP 17; TEMP 98.2; O2SAT 95
[2025-01-26 09:00] LABS: PH,URINE DRUG SCREEN 6.0 (5.0-8.0)
[2025-01-26 09:08] LABS: ALCOHOL, URINE DRUG SCREEN NEGATIVE (NEGATIVE); AMPHET/METH SCREEN,URINE NEGATIVE (NEGATIVE); BARBITURATE SCREEN, URINE NEGATIVE (NEGATIVE); CANNABINOID SCREEN,URINE NEGATIVE (NEGATIVE); COCAINE SCREEN,URINE NEGATIVE (NEGATIVE); METHADONE SCREEN, URINE NEGATIVE (NEGATIVE)
[2025-01-26 11:40] VITALS: BP 109/84; PULSE 77; RESP 18; TEMP 98.2; O2SAT 98
[2025-01-26 16:05] VITALS: BP 130/81; PULSE 77; RESP 18; TEMP 98.4; O2SAT 96
[2025-01-26 19:52] VITALS: BP 121/74; PULSE 78; RESP 19; TEMP 98.6; O2SAT 98
[2025-01-27 04:05] VITALS: BP 127/68; PULSE 74; RESP 18; TEMP 98.4; O2SAT 96
[2025-01-27 07:13] LABS: PLATELET COUNT (AUTO) 210 K/uL (150-450); RED BLOOD CELL COUNT(AUTO) 3.99 MIL/uL (4.00-5.20); RED CELL DISTRIBUTION WIDTH 15.5 % (11.5-14.5); WHITE BLOOD COUNT (AUTO) 4.4 K/uL (4.5-11.0)
[2025-01-27 07:33] LABS: CALCIUM, TOTAL 8.6 mg/dL (8.8-10.5); CREATININE 0.65 mg/dL (0.60-1.30); GLOMERULAR FILTR. RATE CALC > 60 mL/min (>60); GLUCOSE,RANDOM 100 mg/dL (70-110); SODIUM SERUM 143 mmol/L (136-145); UREA NITROGEN, BLOOD 10 mg/dL (7-18)
[2025-01-27 08:34] VITALS: BP 142/88; PULSE 78; RESP 17; TEMP 98.6; O2SAT 98
== END 2025-01-27 14:41 | disposition home or self-care (01) | DRG 641 ==
LOC: EMS 15:16 → EDH 18:55 → 5S 20:50 → 4E 01-26 14:35
PROVIDERS: ADMIT Internal Medicine; ATTEND Internal Medicine
DX: E87.6 Hypokalemia (principal); F25.9 Schizoaffective disorder, unspecified; E11.9 Type 2 diabetes mellitus without complications; I10 Essential (primary) hypertension; J44.9 Chronic obstructive pulmonary disease, unspecified; R19.7 Diarrhea, unspecified; F15.90 Other stimulant use, unspecified, uncomplicated; G47.00 Insomnia, unspecified; Z20.822 Contact with and (suspected) exposure to COVID-19; M19.90 Unspecified osteoarthritis, unspecified site; F60.0 Paranoid personality disorder; Z79.899 Other long term (current) drug therapy; Z87.891 Personal history of nicotine dependence; Z88.0 Allergy status to penicillin
CPT/HCPCS: 74177; 80048; 80076; 80307; 81003; 82040; 82962; 83690; 83735; 84100; 84132; 84484; 85025; 87045; 87206; 87324; 87449; 87804; 89055; 93005; 99285; G0378; J1644; J3475; J3480; J7030; J7050; Q9967